=== PATIENT | female | born 1955 | race Caucasian/White ===

== ENCOUNTER 2017-03-08 10:59 | Inpatient (IN) | payer OTHER ==
--- NOTE | 2017-03-08 11:44 | Emergency Department Report ---
Chief Complaint: Weakness Stated Complaint: LOW BLOOD PRESSURE Time Seen by Provider: 03/08/17 11:41 - HPI History of Present Illness: PT Was at work this morning and she felt weak and dizzy. PT's son took her to PCP but sh was sent to ED for evaluation - ROS Review of Systems: + neck pain + generalized weakness + diarrhea yesterday - Exam Physical Exam: PT is alert not hypotensive abd is soft and non tender MSE screening note: Focused history and physical exam performed. Due to findings the following was ordered: ekg, labs ED Disposition for MSE Condition: Stable
[2017-03-08 12:50] LABS: Basophils % (Auto) 0.2 % (0.0-1.8); Eosinophils % (Auto) 0.3 % (0.0-4.3); Hematocrit 41.2 % (30.3-42.9); Hemoglobin 13.4 gm/dl (10.1-14.3); Mean Corpuscular HGB Conc 33 % (30-34); Mean Corpuscular Hemoglobin 30 pg (28-32); Mean Corpuscular Volume 93 fl (79-97); Platelet Count 188 K/mm3 (140-440); Red Blood Count 4.44 M/mm3 (3.65-5.03); Red Cell Distribution Width 12.7 % (13.2-15.2); White Blood Count 11.6 K/mm3 (4.5-11.0)
[2017-03-08 12:58] LABS: Alanine Aminotransferase 15 units/L (7-56); Albumin 4.1 g/dL (3.9-5); Albumin/Globulin Ratio 1.1 %; Alkaline Phosphatase 93 units/L (35-129); Anion Gap 21 mmol/L; BUN/Creatinine Ratio 24.28; Blood Urea Nitrogen 17 mg/dL (7-17); Calcium 10.1 mg/dL (8.4-10.2); Carbon Dioxide 26 mmol/L (22-30); Chloride 95.9 mmol/L (98-107); Glucose 417 mg/dL (65-100); Lipase 69 units/L (13-60); Potassium 4.6 mmol/L (3.6-5.0); Sodium 138 mmol/L (137-145)
--- NOTE | 2017-03-08 13:26 | Cat Scan Report ---
CT HEAD WITHOUT CONTRAST: HISTORY: Dizziness, generalized weakness.. Serial contiguous axial images were obtained through the cranium. Intravenous contrast material was not administered. The ventricles are normal in size and appearance. There is no mass effect or midline shift. No areas of abnormally increased or decreased attenuation are seen. No mass lesion is seen. The right frontal, right anterior ethmoid and visualized right maxillary sinus are opacified. The remaining sinuses and mastoid air cells are clear. IMPRESSION: Cranial CT scan within normal limits. Sinus disease as outlined above which appears mainly chronic. Correlate for acute on chronic sinusitis.
[2017-03-08 14:41] LABS: Bilirubin,Urine NEG (Negative); Blood,Urine NEG (Negative); Ketones,Urine TR mg/dL (Negative); Leukocyte Esterase,Urine MOD (Negative); Mucus,Urine FEW /HPF; Nitrite,Urine NEG (Negative); Urobilinogen,Urine < 2.0 mg/dL (<2.0)
[2017-03-08] MEDS ORDERED: NACL 0.9% 1000 ML 1,000 ML IV ONE (16:20)
[2017-03-08] MEDS ORDERED: ROCEPHIN 1,000 MG in NACL 0.9% 50 ML IV ONE (16:20)
[2017-03-08] MEDS ORDERED: ROCEPHIN/NS 1 GM/50 ML 1 GM/50 ML BAG IV SCH (17:00)
--- NOTE | 2017-03-08 19:01 | Emergency Department Report ---
- General Chief complaint: Weakness Stated complaint: LOW BLOOD PRESSURE Time Seen by Provider: 03/08/17 11:41 Source: patient Mode of arrival: Wheelchair Limitations: Language Barrier - History of Present Illness Initial comments: reports that while at work today experienced worsening generalized weakness. Reports she felt pre-syncopal. Reports that she was not feeling well approx 1 day ago Complaint: generalized weakness -: days(s) (approx 1 day) Location: generalized Severity: mild Severity scale (0 -10): 2 Consistency: intermittent Improves with: none Worsens with: none Associated Symptoms: other (reports some neck pain with movement). denies: chest pain, confusion, dark stools, diaphoresis, dysuria, easy bruising, fever/ chills, headaches, loss of appetite, nausea/vomiting, myalgias, rash, shortness of breath, syncope - Related Data Allergies Allergy/AdvReac Type Severity Reaction Status Date / Time No Known Allergies Allergy Unverified 03/08/17 11:48 ED Review of Systems ROS: Stated complaint: LOW BLOOD PRESSURE Other details as noted in HPI Constitutional: malaise, weakness. denies: chills, diaphoresis, fever Eyes: denies: eye pain, eye discharge, vision change Respiratory: denies: cough, orthopnea, shortness of breath, SOB with exertion, SOB at rest, stridor, wheezing Cardiovascular: denies: chest pain, palpitations, dyspnea on exertion, orthopnea , edema, syncope, paroxysmal nocturnal dyspnea Gastrointestinal: denies: abdominal pain, nausea, vomiting, diarrhea, constipation, hematemesis, melena, hematochezia Genitourinary: denies: urgency, dysuria, frequency Musculoskeletal: denies: back pain, joint swelling, arthralgia Skin: denies: rash, lesions Neurological: weakness. denies: headache, numbness, paresthesias, confusion, abnormal gait ED Past Medical Hx - Social History Smoking Status: Never Smoker Substance Use Type: None ED Physical Exam - General Limitations: Language Barrier General appearance: alert, in no apparent distress - Head Head exam: Present: atraumatic, normocephalic - Eye Eye exam: Present: PERRL, EOMI - ENT ENT exam: Present: normal orophraynx - Neck Neck exam: Present: normal inspection, full ROM. Absent: tenderness, meningismus - Respiratory Respiratory exam: Present: normal lung sounds bilaterally. Absent: respiratory distress, wheezes, rales, rhonchi, stridor, decreased breath sounds - Cardiovascular Cardiovascular Exam: Present: regular rate, normal rhythm, normal heart sounds. Absent: bradycardia, tachycardia, irregular rhythm, systolic murmur, diastolic murmur - GI/Abdominal GI/Abdominal exam: Present: soft, normal bowel sounds. Absent: distended, tenderness, rebound, rigid, diminished bowel sounds - Back Exam Back exam: Present: normal inspection, full ROM. Absent: tenderness, CVA tenderness (R), CVA tenderness (L), muscle spasm - Neurological Exam Neurological exam: Present: alert, oriented X3, CN II-XII intact, other (motor and sensory wnl. NIHSS 0). Absent: motor sensory deficit - Skin Skin exam: Present: warm, dry ED Course Vital Signs 03/08/17 03/08/17 03/08/17 11:42 16:22 17:40 Temperature 97.9 F Pulse Rate 97 H 90 Respiratory 18 18 18 Rate Blood Pressure 121/77 Blood Pressure 118/76 [Left] O2 Sat by Pulse 100 100 100 Oximetry ED Medical Decision Making - Lab Data Result diagrams: 03/08/17 12:14 03/08/17 12:14 - Radiology Data Radiology results: report reviewed - Medical Decision Making patient reports that she feel better. Offered patient inpatient stay for continued IV antibiotics and monitoring. Patient prefers admission over discharge home. Patient with SIRS criteria, and UTI. Advanced age plan admit for continued observation and recheck CBC in the morning. Critical care attestation.: If time is entered above; I have spent that time in minutes in the direct care of this critically ill patient, excluding procedure time. ED Disposition Clinical Impression: Hyperglycemia Sepsis Qualifiers: Sepsis type: sepsis due to unspecified organism Qualified Code(s): A41.9 - Sepsis, unspecified organism UTI (urinary tract infection) Qualifiers: Urinary tract infection type: site unspecified Hematuria presence: without hematuria Qualified Code(s): N39.0 - Urinary tract infection, site not specified Uncontrolled diabetes mellitus Qualifiers: Diabetes mellitus type: other specified (including BRYANT) Diabetes mellitus complication status: without complication Diabetes mellitus terminal operations manager insulin use: unspecified terminal operations manager insulin use status Qualified Code(s): E13.65 - Other specified diabetes mellitus with hyperglycemia Disposition: OP ADMIT IP TO THIS HOSP Is pt being admited?: Yes Condition: Stable Instructions: Diabetes Mellitus Type 2 in Adults (ED) Referrals: PRIMARY CARE, [Primary Care Provider] - 3-5 Days Time of Disposition: 19:01
[2017-03-09] MEDS ORDERED: MILK OF MAGNESIA PO PRN (02:02)
[2017-03-09] MEDS ORDERED: TYLENOL PO PRN (02:02)
[2017-03-09] MEDS ORDERED: PERCOCET 5/325 PO PRN (02:02)
[2017-03-09] MEDS ORDERED: DULCOLAX PR PRN (02:02)
[2017-03-09] MEDS ORDERED: ZOFRAN IV PRN (02:02)
--- NOTE | 2017-03-09 02:05 | History and Physical Report ---
History of Present Illness Date of examination: 03/09/17 History of present illness: 61-year-old woman with history of hypertension, diabetes comes to the emergency room with complaints of urinary frequency, dysuria and suprapubic tenderness. s Complain of generalized Weakness Review Of Systems: Constitutional: no weight loss Ears, eyes, nose, mouth and throat: no nasal congestion, no nasal discharge, no sinus pressure, blurry vision, diplopia Neck: No neck pain or rigidity. Cardiovascular: chest pain, orthopnea, palpitations Respiratory: No shortness of breath, cough Gastrointestinal: abdominal pain, hematochezia Genitourinary : no dysuria, frequency , hematuria Musculoskeletal: no muscle ache Integumentary: no rash, no pruritis Neurological: no parathesias, focal weakness Endocrine: no cold or heat intolerance, no polyuria or polydipsia Hematologic/Lymphatic: no easy bruising, no easy bleeding, no gland swelling Allergic/Immunologic: no urticaria, no angioedema. PAST MEDICAL HISTORY:hypertension, diabetes PAST SURGICAL HISTORY:None FAMILY HISTORY:hypertension SOCIAL HISTORY: Denies alcohol, tobacco, drugs Medications and Allergies Allergies Allergy/AdvReac Type Severity Reaction Status Date / Time No Known Allergies Allergy Unverified 03/08/17 11:48 Home Medications Medication Instructions Recorded Confirmed Last Taken Type Unobtainable 03/08/17 03/08/17 Unknown History Active Meds: Active Medications Ceftriaxone Sodium (Rocephin/Ns 1 Gm/50 Ml) 1 gm in 50 mls @ 100 mls/hr IV ONCE ALESSANDRO Last Admin: 03/08/17 17:02 Dose: 100 mls/hr Exam - Physical Exam Narrative exam: Gen. appearance: Patient lying in bed in no acute distress HEENT: Normocephalic/atraumatic, pupils equal round reactive to light, extra alkaline movement intact, no scleral icterus, no JVD or thyromegaly or nodule, neck is supple, mucous membrane moist, no erythema or exudate Heart: S1-S2, regular rate and rhythm Lungs: Clear to auscultation bilateral breathing comfortable Abdomen: Positive bowel sounds, nontender, nondistended, no organomegaly Extremities: No edema, cyanosis, clubbing Neuro:: Oriented 3 , cranial nerves II-12 intact, speech, motor intact Skin: No rash, nodules, warm dry - Constitutional Vitals: Temp Pulse Resp BP Pulse Ox 98.4 F 89 16 145/85 100 03/08/17 20:07 03/09/17 01:19 03/09/17 01:19 03/09/17 01:19 03/09/17 01:19 Results - Labs CBC & Chem 7: 03/08/17 12:14 03/08/17 12:14 Labs: Abnormal lab results 03/08/17 03/08/17 03/08/17 Range/Units 12:14 12:14 14:15 WBC 11.6 H (4.5-11.0) K/mm3 RDW 12.7 L (13.2-15.2) % Lymph % (Auto) 13.3 L (13.4-35.0) % Seg Neutrophils % 82.3 H (40.0-70.0) % Seg Neutrophils # 9.5 H (1.8-7.7) K/mm3 Chloride 95.9 L (98-107) mmol/L Glucose 417 H (65-100) mg/dL POC Glucose (70-105) Lipase 69 H (13-60) units/L Urine WBC (Auto) 116.0 H (0.0-6.0) /HPF 03/08/17 Range/Units 18:52 WBC (4.5-11.0) K/mm3 RDW (13.2-15.2) % Lymph % (Auto) (13.4-35.0) % Seg Neutrophils % (40.0-70.0) % Seg Neutrophils # (1.8-7.7) K/mm3 Chloride (98-107) mmol/L Glucose (65-100) mg/dL POC Glucose 205 H (70-105) Lipase (13-60) units/L Urine WBC (Auto) (0.0-6.0) /HPF - Imaging and Cardiology Chest x-ray: image reviewed CT Scan - head: report reviewed Assessment and Plan Assessment Pyelonephritis Hypertension Diabetes type 2 Plan Admit to medicine Start IV Rocephin, follow cultures Check fingersticks and initiate insulin sliding scale Continue appropriate outpatient medications Dvt prophylaxis
--- NOTE | 2017-03-09 07:59 | XRay Report ---
ROUTINE CHEST, TWO VIEWS: HISTORY: Weakness. The trachea, heart, mediastinal contour, lung villatoro and bony thorax are unremarkable. IMPRESSION: Unremarkable chest x-ray.
--- NOTE | 2017-03-09 08:15 | Admit Criteria Form ---
Admission Criteria Documentation: SEPSIS and OTHER FEBRILE ILLNESS, W/O FOCAL INFECTION Clinical Indications for Admission to Inpatient Care ( Place 'X' for any and all applicable criteria): Admission to inpatient status for two midnights or more is indicated for ANY ONE of the following (1)(2)(3): [ ] I. Bacteremia [ ]II. Suspected or identified specific infection requiring hospitalization (eg, meningitis, endocarditis) [ ]III. Hemodynamic instability [ ]IV. Temperature > 104.9 0F (40.5 0C) (oral) [ ]V. Core (rectal) temperature < 95 0F (35 0C) (eg, thought to be due to infection) [ ]. Altered mental status that is severe or persistent [ ]VII. Failure or unavailability of outpatient antimicrobial treatment [ ]VIII. Hypoxemia [ ]IX. Seizures [ ]X. New coagulopathy (eg, reduced platelet count consistent with disseminated intravascular coagulation) [X ]XI. Inpatient admission required [B] rather than observation care because of 1 or more of the following 1) Tachypnea not responsive to outpatient or observation treatment [X] 2) Metabolic disorder (eg, hypoglycemia, hyperglycemia, metabolic acidosis) that persists despite outpatient and observation care treatment 3) Evidence of end-organ dysfunction (eg, rising creatinine, myocardial ischemia, rising liver function tests) that is severe or persists despite observation care treatment 4) Temperature > 103.1 0F (39.5 0C) (oral) that is not responsive to observation care treatment 5) Dehydration that is severe or persistent [X] 6) Parenteral antimicrobial regimen that must be implemented on inpatient basis (eg, infusion or monitoring needs beyond capabilities of outpatient parenteral therapy) 7) Strict or protective (eg, laminar flow) isolation 8) Other condition, treatment or monitoring requiring inpatient admission Extended stay beyond goal length of stay may be needed for(1)(3) [ ]a) Persistent Hypotension [ ]b) Positive blood cultures [ ]c) Lack of improvement on antimicrobial treatment (eg, continued fever) [ ]d) Active comorbid illness (eg, heart failure, renal failure) [ ]e) High-risk febrile neutropenia [ ]f) Insufficient oral intake [ ]g) insufficient oral intake The original [employer] content created by [employer] has been revised. The portions of the content which have been revised are identified through the use of italic text or in bold, and [facility] has neither reviewed nor approved the modified material. All other unmodified content is copyright [facility]. Please see references footnoted in the original [facility] edition 2017 Admission Criteria Met: Yes
[2017-03-09] MEDS ORDERED: D50W (25GM) Syringe IV PRN (08:37)
[2017-03-09] MEDS: NOVOLOG SUB-Q SCH ×4 (08:47→22:17)
[2017-03-09] MEDS: ROCEPHIN/NS 1 GM/50 ML 1 GM/50 ML BAG IV SCH (10:59)
[2017-03-09] MEDS: LOVENOX SUB-Q SCH (10:59)
--- NOTE | 2017-03-09 15:22 | Event Note ---
Date: 03/09/17 Patient seen and examined, in no acute distress. will continue to monitor. await culture results. family and patient updated about findings and treatment plan.
[2017-03-10 05:58] LABS: Basophils % (Auto) 0.2 % (0.0-1.8); Hematocrit 36.8 % (30.3-42.9); Hemoglobin 12.7 gm/dl (10.1-14.3); Mean Corpuscular HGB Conc 35 % (30-34); Mean Corpuscular Hemoglobin 32 pg (28-32); Mean Corpuscular Volume 92 fl (79-97); Platelet Count 152 K/mm3 (140-440); Red Cell Distribution Width 12.8 % (13.2-15.2); White Blood Count 7.7 K/mm3 (4.5-11.0)
[2017-03-10 06:19] LABS: Anion Gap 16 mmol/L; Blood Urea Nitrogen 18 mg/dL (7-17); Calcium 8.5 mg/dL (8.4-10.2); Carbon Dioxide 26 mmol/L (22-30); Chloride 103.1 mmol/L (98-107); Glucose 218 mg/dL (65-100); Potassium 3.8 mmol/L (3.6-5.0); Sodium 141 mmol/L (137-145)
[2017-03-10] MEDS: NOVOLOG SUB-Q SCH ×2 (08:45→12:22)
[2017-03-10] MEDS: LOVENOX SUB-Q SCH (09:38)
[2017-03-10] MEDS: ROCEPHIN/NS 1 GM/50 ML 1 GM/50 ML BAG IV SCH (09:38)
--- NOTE | 2017-03-10 10:33 | Discharge Summary ---
Providers - Providers Date of Admission: 03/09/17 02:02 Attending physician: MAGDY LEE MD Primary care physician: CORPOR[facility]OT Hospitalization Reason for admission: UTI Condition: Stable Hospital course: 61-year-old woman with history of hypertension, diabetes comes to the emergency room with complaints of urinary frequency, dysuria and suprapubic tenderness. Patient complained of generalized Weakness. She'll start on IV fluids by the antibiotics with good improvement. Urine cultures were unfortunately not obtained patient was afebrile 24-48 hours. Abdominal suprapubic pain resolved. She is clinically stable at this time for discharge and to complete antibiotics outpatient. Discharge diagnosis Acute pyelonephritis Diabetes mellitus Hypertension Disposition: TO HOME OR SELFCARE Time spent for discharge: 35 mins Core Measure Documentation - Palliative Care Palliative Care/ Comfort Measures: Not Applicable - Core Measures Any of the following diagnoses?: none - VTE Discharge Requirements Deep Vein Thrombosis/Pulmonary Embolism Present on Admission: No Exam - Physical Exam Narrative exam: VITAL SIGNS: Reviewed. GENERAL: The patient appeared well nourished and normally developed. Vital signs as documented. HEAD: No signs of head trauma. EYES: Pupils are equal. Extraocular motions intact. EARS: Hearing grossly intact. MOUTH: Oropharynx is normal. NECK: No adenopathy, no JVD. CHEST: Chest with clear breath sounds bilaterally. No wheezes, rales, or rhonchi. CARDIAC: Regular rate and rhythm. S1 and S2, without murmurs, gallops, or rubs. VASCULAR: No Edema. Peripheral pulses normal and equal in all extremities. ABDOMEN: Soft, without detectable tenderness. No sign of distention. No rebound or guarding, and no masses palpated. Bowel Sounds normal. MUSCULOSKELETAL: Good range of motion of all major joints. Extremities without clubbing, cyanosis or edema. NEUROLOGIC EXAM: Alert and oriented x 3. No focal sensory or strength deficits. Speech normal. Follows commands. PSYCHIATRIC: Mood normal. SKIN: No rash or lesions. - Constitutional Vitals: Temp Pulse Resp BP Pulse Ox 99.0 F 104 H 18 148/87 97 03/09/17 20:32 03/09/17 20:32 03/09/17 20:32 03/09/17 20:32 03/10/17 09:13 Plan Activity: advance as tolerated, fall precautions Diet: diabetic Special Instructions: record daily BP diary, record blood sugar diary Follow up with: PRIMARY CARE, [Primary Care Provider] - 3-5 Days Prescriptions: Ciprofloxacin HCl [Ciprofloxacin TAB] 500 mg PO Q12H #10 tab traMADol [Ultram] 50 mg PO Q6HR PRN #14 tablet PRN Reason: Pain
[2017-03-10 12:19] VITALS: BP 128/79
[2017-03-10] MEDS ORDERED: Fluarix Quad 2017-2018(36 MOS+) IM ONE (13:30)
[2017-03-10] MEDS ORDERED: PNEUMOVAX 23 IM ONE (13:30)
== END 2017-03-10 14:30 | disposition home or self-care (01) | DRG 690 ==
LOC: ED 10:59 → 3A 03-09 02:02 → CC2 03-09 08:23
PROVIDERS: ADMIT Internal Medicine; ATTEND Internal Medicine
PROC: 3E0234Z Introduction of Serum, Toxoid and Vaccine into Muscle, Percutaneous Approach (ICD-10-PCS; principal; 2017-03-09)
DX: N10 Acute pyelonephritis (principal); N39.0 Urinary tract infection, site not specified; E13.65 Other specified diabetes mellitus with hyperglycemia; Z82.49 Family history of ischemic heart disease and other diseases of the circulatory system; Z23 Encounter for immunization
CPT/HCPCS: 36415; 70450; 71020; 80048; 80053; 81001; 82140; 82962; 83690; 83880; 84484; 85025; 85379; 87040; 87086; 90686; 90732; 93005; 93010; 96365; 96375; J0696; J1650; J1815; J7030

== ENCOUNTER 2017-11-11 18:35 | Emergency (ER) | payer OTHER ==
[2017-11-11 20:58] VITALS: BP 146/84
--- NOTE | 2017-11-11 21:22 | XRay Report ---
FINAL REPORT PROCEDURE: XR ANKLE 3+V LT TECHNIQUE: LEFT ankle radiographs, AP and lateral views. HISTORY: ankle sprain COMPARISON: No prior studies are available for comparison. FINDINGS: Fracture (s) and/or Dislocation(s): There is a nondisplaced fracture of the distal fibula. The tibia is intact. There is a fracture of the base of the 5th metatarsal bone. Alignment: Normal. Joint space(s): There is mild degenerative arthrosis of the tibiotalar joint. Soft tissues: There is lateral soft tissue swelling. Bone mineralization: Normal. Foreign bodies: Normal. Calcaneal spurring: There is a small inferior calcaneal spur. IMPRESSION: There are fractures of the distal fibula and the base of the 5th metatarsal bone..
--- NOTE | 2017-11-11 22:31 | Emergency Department Report ---
ED Lower Extremity HPI - General Chief Complaint: Extremity Injury, Lower Stated Complaint: FOOT PAIN/SWELLING Time Seen by Provider: 11/11/17 22:20 Source: patient Mode of arrival: Ambulatory Limitations: No Limitations - History of Present Illness Initial Comments: 62-year-old female presents to the emergency room for left ankle sprain for 4 days. Patient reports that on Mother's Day she was dancing and her foot rolled. She reports that it rolled twice and felt that maybe she has sprained her left ankle. Patient reports that the swelling had increase with minimal pain. Patient reports no past medical history currently takes no medications on a daily basis and has no known drug allergies. Patient is here with her son. Complaint: ankle injury -: days(s) (4) Injury: Ankle: Left Type of Injury: eversion Place: home Severity: moderate Severity scale (0 -10): 5 Improves With: nothing Worsens With: weight bearing Context: other (dancing) Associated Symptoms: swelling, tingling Treatments Prior to Arrival: cold therapy - Related Data Home Medications Medication Instructions Recorded Confirmed Last Taken amLODIPine [Norvasc] 5 PO DAILY 03/09/17 03/07/17 09:00 metFORMIN [Glucophage] 500 mg PO BID 03/09/17 03/09/17 02/28/17 17:00 Previous Rx's Medication Instructions Recorded Last Taken Type Ciprofloxacin HCl [Ciprofloxacin 500 mg PO Q12H #10 tab 03/10/17 Unknown Rx TAB] traMADol [Ultram] 50 mg PO Q6HR PRN #14 tablet 03/10/17 Unknown Rx HYDROcodone/APAP 5-325 [[place] 1 each PO Q6HR #12 tablet 11/11/17 Unknown Rx 5-325 mg TAB] Allergies Allergy/AdvReac Type Severity Reaction Status Date / Time No Known Allergies Allergy Verified 11/11/17 20:53 ED Review of Systems ROS: Stated complaint: FOOT PAIN/SWELLING Other details as noted in HPI Comment: All other systems reviewed and negative Constitutional: denies: chills, fever Eyes: denies: eye pain, eye discharge, vision change Musculoskeletal: joint swelling (left ankle), arthralgia (left ankle) Skin: denies: rash, lesions Neurological: denies: headache, weakness, paresthesias Psychiatric: denies: anxiety, depression Hematological/Lymphatic: denies: easy bleeding, easy bruising ED Past Medical Hx - Past Medical History Hx Hypertension: Yes Hx Heart Attack/AMI: No Hx Congestive Heart Failure: No Hx Diabetes: Yes Hx Asthma: No Hx COPD: No Hx HIV: No - Surgical History Hx Pacemaker: No Hx Internal Defibrillator: No Additional Surgical History: Mass removed from under right arm. C- Section - Social History Smoking Status: Never Smoker Substance Use Type: None - Medications Home Medications: Home Medications Medication Instructions Recorded Confirmed Last Taken Type amLODIPine [Norvasc] 5 PO DAILY 03/09/17 03/07/17 09:00 History metFORMIN [Glucophage] 500 mg PO BID 03/09/17 03/09/17 02/28/17 17:00 History Ciprofloxacin HCl [Ciprofloxacin 500 mg PO Q12H #10 tab 03/10/17 Unknown Rx TAB] traMADol [Ultram] 50 mg PO Q6HR PRN #14 tablet 03/10/17 Unknown Rx HYDROcodone/APAP 5-325 [[place] 1 each PO Q6HR #12 tablet 11/11/17 Unknown Rx 5-325 mg TAB] ED Physical Exam - General Limitations: No Limitations General appearance: alert, in no apparent distress - Head Head exam: Present: atraumatic, normocephalic - Cardiovascular Cardiovascular Exam: Present: regular rate, normal rhythm. Absent: systolic murmur, diastolic murmur, rubs, gallop - GI/Abdominal GI/Abdominal exam: Present: soft, normal bowel sounds - Expanded Lower Extremity Exam Left Ankle exam: Present: tenderness, swelling, ecchymosis. Absent: full ROM, deformity Foot/Toe exam: Present: tenderness, swelling, ecchymosis. Absent: full ROM Neuro vascular tendon exam: Present: no vascular compromise - Neurological Exam Neurological exam: Present: alert, oriented X3 - Psychiatric Psychiatric exam: Present: normal affect, normal mood - Skin Skin exam: Present: warm, dry, intact, normal color. Absent: rash ED Course Vital Signs 11/11/17 20:53 Temperature 99.4 F Pulse Rate 106 H Respiratory 16 Rate Blood Pressure 146/84 O2 Sat by Pulse 99 Oximetry ED Lower Extremity MDM - Radiology Data Radiology results: report reviewed, image reviewed FINDINGS: Fracture (s) and/or Dislocation(s): There is a nondisplaced fracture of the distal fibula. The tibia is intact. There is a fracture of the base of the 5th metatarsal bone. Alignment: Normal. Joint space(s): There is mild degenerative arthrosis of the tibiotalar joint. Soft tissues: There is lateral soft tissue swelling. Bone mineralization: Normal. Foreign bodies: Normal. Calcaneal spurring: There is a small inferior calcaneal spur. IMPRESSION: There are fractures of the distal fibula and the base of the 5th metatarsal bone.. Transcribed By: CO Dictated By: KELL MOORE MD Electronically Authenticated By: KELL MOORE MD Signed Date/Time: 11/11/172115 DD/ 15 TD/TT: 11/11/172115 - Medical Decision Making Patient has been evaluated but this provider fast track. X-rays of ankle and foot shows the patient has a fracture of the left metatarsal and the distal fibula. Discussed the patient and I will place her in a boot since patient has so much swelling. I discussed the patient she needs to elevate her foot above her heart do not walk on it. She needs to continue with ice. I would give her pain medication of [place] 5/325. It is very important for patient to follow up with orthopedist I will list several below. Patient and son verbalized understanding. Critical care attestation.: If time is entered above; I have spent that time in minutes in the direct care of this critically ill patient, excluding procedure time. ED Disposition Clinical Impression: Fracture of fifth metatarsal bone of left foot Qualifiers: Encounter type: initial encounter Fracture type: closed Fracture alignment: nondisplaced Qualified Code(s): S92.355A - Nondisplaced fracture of fifth metatarsal bone, left foot, initial encounter for closed fracture Closed fracture of left distal fibula Qualifiers: Encounter type: initial encounter Fracture morphology: unspecified fracture morphology Qualified Code(s): S82.832A - Other fracture of upper and lower end of left fibula, initial encounter for closed fracture Disposition: -01 TO HOME OR SELFCARE Is pt being admited?: No Does the pt Need Aspirin: No Condition: Stable Instructions: Foot Fracture in Adults (ED), Ankle Fracture (ED) Additional Instructions: Please elevate her foot and place ice. Your foot needs to be elevated above your heart. Please wear your boot and use her walker please minimize her walking. Please take your medication as prescribed do not operate heavy machinery while taking the [place]. Please follow up with orthopedics on Tuesday or Tuesday for further evaluation and treatment. Prescriptions: HYDROcodone/APAP 5-325 [[place] 5-325 mg TAB] 1 each PO Q6HR #12 tablet Referrals: PRIMARY CARE, [Primary Care Provider] - 3-5 Days FRANK WILSON MD [Staff Physician] - 3-5 Days LUDY SUBRAMANIAN MD [Staff Physician] - 3-5 Days FRANCISCO AN MD [Staff Physician] - 3-5 Days Forms: Accompanied Note, Work/School Release Form(ED)
[2017-11-11] MEDS ORDERED: NORCO 5/325 PO ONE (22:45)
== END 2017-11-11 23:13 | disposition home or self-care (01) ==
LOC: ED 18:35
DX: S92.355A Nondisplaced fracture of fifth metatarsal bone, left foot, initial encounter for closed fracture (principal); I10 Essential (primary) hypertension; E11.9 Type 2 diabetes mellitus without complications; Z79.899 Other long term (current) drug therapy; X50.1XXA Overexertion from prolonged static or awkward postures, initial encounter; Y93.41 Activity, dancing; Y99.8 Other external cause status; Y92.009 Unspecified place in unspecified non-institutional (private) residence as the place of occurrence of the external cause

== ENCOUNTER 2019-02-08 15:09 | Inpatient (IN) | payer OTHER ==
[2019-02-08 16:36] LABS: Basophils % (Auto) 0.3 % (0.0-1.8); Eosinophils % (Auto) 0.1 % (0.0-4.3); Hematocrit 25.8 % (30.3-42.9); Hemoglobin 8.5 gm/dl (10.1-14.3); Lymphocytes # (Auto) 1.2 K/mm3 (1.2-5.4); Lymphocytes % (Auto) 9.3 % (13.4-35.0); Mean Corpuscular HGB Conc 33 % (30-34); Mean Corpuscular Volume 93 fl (79-97); Monocytes # (Auto) 1.1 K/mm3 (0.0-0.8); Monocytes % (Auto) 8.6 % (0.0-7.3); Platelet Count 169 K/mm3 (140-440); Red Blood Count 2.77 M/mm3 (3.65-5.03); Red Cell Distribution Width 15.2 % (13.2-15.2)
[2019-02-08 17:01] LABS: Albumin 3.2 g/dL (3.9-5); Calcium 8.6 mg/dL (8.4-10.2)
[2019-02-08] MEDS ORDERED: NACL 0.9% 1000 ML IV ONE (17:09)
[2019-02-08] MEDS ORDERED: ZOSYN/NS 4.5GM/100ML 4.5 GM/100 ML VIAL IV ONE (17:11)
--- NOTE | 2019-02-08 17:29 | Cat Scan Report ---
CT BRAIN: 02/08/2019 INDICATION / CLINICAL INFORMATION: . Weakness. Dizziness. COMPARISON: 03/08/2017 FINDINGS: BRAIN/INTRACRANIAL STRUCTURES: Unenhanced CT images of the brain demonstrate no evidence of acute int racranial abnormality. Ventricles and sulci are normal in size and shape. There is no evidence of acute ischemic injury, hemorrhage, or mass. An old appearing left basal ganglia lacunar infarct is noted. This was not present at the time the pr ior exam,. Air-fluid levels are present in the maxillary sinuses bilaterally. The prior exam demonstrated right- sided sinus opacification only. There is prominent mucosal thickening also now present in the right f rontal sinus, similar to the prior exam. EXTRACRANIAL STRUCTURES: Unremarkable. IMPRESSION: No acute intracranial abnormality. Paranasal sinus disease, including bilateral maxillary sinus air-fluid levels. All CT scans at this location are performed using dose reduction to ALARA by means of automated expos ure control. Signer Name: Jose Parkinson MD Signed: 02/08/2019 5:24 PM Workstation Name: [id number]
[2019-02-08 17:40] LABS: Partial Thromboplastin Time 30.1 Sec. (24.2-36.6)
--- NOTE | 2019-02-08 20:47 | Nuclear Medicine Report ---
Nuclear medicine pulmonary VQ scan INDICATION: Acute onset chest pain with dyspnea TECHNIQUE: A total of 4.33 mCi technetium 99 MAA was injected IV per protocol at 15.19 mCi xenon-133 was inhaled per protocol FINDINGS: Normal wash-in and washout of xenon radiotracer. No mismatch perfusion defect identified IMPRESSION: Low probability for PTE. Signer Name: Jean-Pierre Perez MD Signed: 02/08/2019 8:43 PM Workstation Name: [id number]
--- NOTE | 2019-02-08 21:27 | Emergency Department Report ---
ED Dizziness HPI - General Chief Complaint: Dizziness Stated Complaint: WEAKNESS/LOW BP Time Seen by Provider: 02/08/19 16:36 Source: EMS Mode of arrival: Stretcher Limitations: Language Barrier - History of Present Illness Initial Comments: 63 y.o female presents to ER with dizziness, generalized weakness, chest pain and sob. Patient had left foot wound surgery one week ago at [facility]. Upon presentation to ER she was found to be hypoxic and was placed on a non rebreather which improved her o2. She described her chest pain as pressure, mid chest, without radiation. Her sob, is mostly non exertional. no fever, chills or night sweats. MD Complaint: dizziness -: Gradual Timing: gradual onset Description: sense of movement History of Same: No History of Trauma: No Severity: severe Improves With: nothing Worsens With: movement Associated Symptoms: denies other symptoms - Related Data Home Medications Medication Instructions Recorded Confirmed Last Taken amLODIPine [Norvasc] 5 mg PO DAILY 03/09/17 02/08/19 02/08/19 metFORMIN [Glucophage] 500 mg PO BID 03/09/17 02/08/19 02/08/19 Allergies Allergy/AdvReac Type Severity Reaction Status Date / Time No Known Allergies Allergy Verified 11/11/17 20:53 ED Review of Systems ROS: Stated complaint: WEAKNESS/LOW BP Other details as noted in HPI Comment: All other systems reviewed and negative Eyes: denies: eye pain ENT: denies: ear pain Respiratory: SOB with exertion, SOB at rest. denies: cough Cardiovascular: chest pain, palpitations, dyspnea on exertion Endocrine: denies: flushing Gastrointestinal: denies: abdominal pain, nausea, vomiting Genitourinary: denies: urgency Skin: denies: rash Neurological: weakness, numbness ED Past Medical Hx - Past Medical History Hx Hypertension: Yes Hx Heart Attack/AMI: No Hx Congestive Heart Failure: No Hx Diabetes: Yes Hx Asthma: No Hx COPD: No Hx HIV: No - Surgical History Hx Pacemaker: No Hx Internal Defibrillator: No Additional Surgical History: Mass removed from under right arm. C- Section - Social History Smoking Status: Never Smoker - Medications Home Medications: Home Medications Medication Instructions Recorded Confirmed Last Taken Type amLODIPine [Norvasc] 5 mg PO DAILY 03/09/17 02/08/19 02/08/19 History metFORMIN [Glucophage] 500 mg PO BID 03/09/17 02/08/19 02/08/19 History ED Physical Exam - General Limitations: Language Barrier General appearance: alert, in no apparent distress - Head Head exam: Present: atraumatic, normocephalic - Eye Eye exam: Present: normal appearance, PERRL, EOMI Pupils: Present: normal accommodation - ENT ENT exam: Present: normal exam, normal orophraynx - Neck Neck exam: Present: normal inspection - Respiratory Respiratory exam: Present: normal lung sounds bilaterally - Cardiovascular Cardiovascular Exam: Present: regular rate - GI/Abdominal GI/Abdominal exam: Present: soft, normal bowel sounds ED Course Vital Signs 02/08/19 02/08/19 02/08/19 15:51 15:53 16:00 Temperature 98.4 F Pulse Rate 80 81 81 Respiratory 20 15 16 Rate Blood Pressure 85/44 83/42 Blood Pressure 74/46 [Left] O2 Sat by Pulse 74 L 100 Oximetry 02/08/19 02/08/19 02/08/19 16:15 16:30 16:57 Temperature Pulse Rate 82 82 Respiratory 19 15 Rate Blood Pressure 81/47 85/53 85/53 Blood Pressure [Left] O2 Sat by Pulse 99 100 Oximetry 02/08/19 02/08/19 02/08/19 17:00 17:06 17:15 Temperature 98.4 F Pulse Rate 74 Respiratory 20 Rate Blood Pressure 91/55 91/56 101/53 Blood Pressure [Left] O2 Sat by Pulse 96 96 99 Oximetry 02/08/19 02/08/19 02/08/19 17:30 17:45 18:00 Temperature Pulse Rate 81 Respiratory 18 Rate Blood Pressure 109/50 109/50 96/61 Blood Pressure [Left] O2 Sat by Pulse 100 100 98 Oximetry 02/08/19 02/08/19 02/08/19 18:15 18:30 18:45 Temperature Pulse Rate 81 80 80 Respiratory 14 21 22 Rate Blood Pressure 96/61 97/48 93/44 Blood Pressure [Left] O2 Sat by Pulse 98 96 100 Oximetry 02/08/19 02/08/19 02/08/19 19:00 19:09 19:15 Temperature 98.3 F Pulse Rate 80 83 Respiratory 18 20 21 Rate Blood Pressure 96/50 Blood Pressure 93/48 [Left] O2 Sat by Pulse 100 100 100 Oximetry 02/08/19 02/08/19 02/08/19 19:31 20:00 20:59 Temperature Pulse Rate 80 83 84 Respiratory 18 24 19 Rate Blood Pressure 93/48 103/47 96/49 Blood Pressure [Left] O2 Sat by Pulse 98 95 94 Oximetry 02/08/19 02/08/19 21:00 22:00 Temperature Pulse Rate 83 85 Respiratory 17 24 Rate Blood Pressure 98/46 95/33 Blood Pressure [Left] O2 Sat by Pulse 94 94 Oximetry ED Medical Decision Making - Lab Data Result diagrams: 02/08/19 16:26 02/08/19 16:26 - EKG Data -: EKG Interpreted by Me EKG shows normal: sinus rhythm Rate: normal - EKG Data When compared to previous EKG there are: no significant change Interpretation: no acute changes, nonspecific ST-T wave aggie - Radiology Data Radiology results: report reviewed Critical care attestation.: If time is entered above; I have spent that time in minutes in the direct care of this critically ill patient, excluding procedure time. ED Disposition Clinical Impression: PUSHPA (acute kidney injury), Hypoxia CHF exacerbation Qualifiers: Heart failure type: systolic Qualified Code(s): I50.23 - Acute on chronic sy stolic (congestive) heart failure Disposition: OP ADMIT IP TO THIS HOSP Is pt being admited?: Yes Does the pt Need Aspirin: Yes Condition: Stable Referrals: DEBORA YI MD [Primary Care Provider] - 3-5 Days
[2019-02-08] MEDS: ASPIRIN PO SCH (22:07)
--- NOTE | 2019-02-08 22:13 | XRay Report ---
CHEST 1 VIEW INDICATION / CLINICAL INFORMATION: hypoxia. COMPARISON: None available. FINDINGS: SUPPORT DEVICES: None. HEART / MEDIASTINUM: No significant abnormality. LUNGS / PLEURA: Bilateral interstitial edema and pleural effusions. Signer Name: Jean-Pierre Perez MD Signed: 02/08/2019 10:09 PM Workstation Name: [id number]
[2019-02-08] MEDS ORDERED: D50W (25GM) Syringe IV PRN (22:15)
[2019-02-08] MEDS ORDERED: SODIUM CHLORIDE FLUSH SYRINGE 10 ML IV PRN (22:15)
[2019-02-08] MEDS ORDERED: ZOFRAN IV PRN (22:15)
[2019-02-08] MEDS ORDERED: PROVENTIL IH PRN (22:15)
--- NOTE | 2019-02-08 22:33 | History and Physical Report ---
History of Present Illness Date of examination: 02/08/19 Date of admission: 02/12/2019 Chief complaint: generalized weakness History of present illness: 63 -year-old female with history of hypertension and diabetes, Diabetic foot ulcer status post debridement of left second toe d/t (one week ago at [facility]) who presents to [facility] ED with complaints of generalized weakness, dizziness, chest pain and sob. Pt only speaks ukrainian. Her son is present at the bedside. She has requested that he interprets, and assist with providing history. Pt states that she woke up feeling shortness of breath "weak" and not her "normal self". As the day progressed her SOB , so she decided to come in for further evaluation. Pt denies cardiac history or ever having cardiac work up. Past History Past Medical History: diabetes, hypertension Past Surgical History: Other (Mass removed from under right arm. C- Section, left toe surgery) Social history: , lives with family. denies: smoking, alcohol abuse Family history: no significant family history Medications and Allergies Allergies Allergy/AdvReac Type Severity Reaction Status Date / Time No Known Allergies Allergy Verified 11/11/17 20:53 Home Medications Medication Instructions Recorded Confirmed Last Taken Type amLODIPine [Norvasc] 5 mg PO DAILY 03/09/17 02/08/19 02/08/19 History metFORMIN [Glucophage] 500 mg PO BID 03/09/17 02/08/19 02/08/19 History Active Meds: Active Medications Acetaminophen (Tylenol) 650 mg PO Q4H PRN PRN Reason: Pain MILD(1-3)/Fever >100.5/WHITEHEAD Albuterol (Proventil) 2.5 mg IH Q3HRT PRN PRN Reason: Shortness Of Breath Amlodipine Besylate (Norvasc) 5 mg PO DAILY [facility] Aspirin (Aspirin) 325 mg PO QDAY [facility] Last Admin: 02/08/19 22:07 Dose: 325 mg Documented by: Dextrose (D50w (25gm) Syringe) 50 ml IV PRN PRN PRN Reason: Hypoglycemia Docusate Sodium (Colace) 100 mg PO BID [facility] Furosemide (Lasix) 40 mg IV QDAY [facility] Heparin Sodium (Porcine) (Heparin) 5,000 unit SUB-Q Q12HR [facility] Insulin Human Lispro (Humalog) 0 unit SUB-Q [facility]; Protocol Metformin HCl (Glucophage) 500 mg PO BID [facility] Ondansetron HCl (Zofran) 4 mg IV Q6H PRN PRN Reason: Nausea And Vomiting Sodium Chloride (Sodium Chloride Flush Syringe 10 Ml) 10 ml IV BID [facility] Sodium Chloride (Sodium Chloride Flush Syringe 10 Ml) 10 ml IV PRN PRN PRN Reason: LINE FLUSH Review of Systems All systems: negative Constitutional: fatigue, weakness Cardiovascular: lightheadedness, shortness of breath, dyspnea on exertion, no paroxysmal nocturnal dyspnea Respiratory: no cough, no cough with sputum Exam - Physical Exam Narrative exam: Physical exam General appearance: Present: No acute distress, alert and oriented x3, pleasant, well-developed, speaking adult female - EENT Eyes: Present: PERRL, EOM intact ENT: hearing intact, normal dentition - Neck Neck: Present: supple, normal ROM - Respiratory Respiratory effort: Non-labored, on supplemental O2 Respiratory: faint bibasilar crackles - Cardiovascular Heart rate: 80 (bpm) Rhythm: regular Heart Sounds: Present: S1 & S2. Absent: rub, click - Extremities Extremities: no ischemia, pulses intact, abnormal (bilateral pitting edema R>L) - Peripheral Assessment Peripheral Pulses: within normal limits - Abdominal General gastrointestinal: soft, non-tender, normal bowel sounds - Integumentary Integumentary: Present: warm, dry, left foot dressed in gauze and tape in foot boot - Musculoskeletal Musculoskeletal: generalized weakness, able to move all extremities -Neurological Neurological: CN II-XII grossly intact - Psychiatric Psychiatric: cooperative - Constitutional Vitals: Temp Pulse Resp BP Pulse Ox 98.3 F 85 24 95/33 94 02/08/19 19:15 02/08/19 22:00 02/08/19 22:00 02/08/19 22:00 02/08/19 22:00 Results - Labs CBC & Chem 7: 02/08/19 16:26 02/08/19 16:26 Labs: Laboratory Last Values WBC 12.6 K/mm3 (4.5-11.0) H 02/08/19 16:26 RBC 2.77 M/mm3 (3.65-5.03) L 02/08/19 16:26 Hgb 8.5 gm/dl (10.1-14.3) L 02/08/19 16:26 Hct 25.8 % (30.3-42.9) L 02/08/19 16:26 MCV 93 fl (79-97) 02/08/19 16:26 MCH 31 pg (28-32) 02/08/19 16:26 MCHC 33 % (30-34) 02/08/19 16:26 RDW 15.2 % (13.2-15.2) 02/08/19 16:26 Plt Count 169 K/mm3 (140-440) 02/08/19 16:26 Lymph % (Auto) 9.3 % (13.4-35.0) L 02/08/19 16:26 Pender % (Auto) 8.6 % (0.0-7.3) H 02/08/19 16:26 Eos % (Auto) 0.1 % (0.0-4.3) 02/08/19 16:26 Baso % (Auto) 0.3 % (0.0-1.8) 02/08/19 16:26 Lymph # 1.2 K/mm3 (1.2-5.4) 02/08/19 16:26 Pender # 1.1 K/mm3 (0.0-0.8) H 02/08/19 16:26 Eos # 0.0 K/mm3 (0.0-0.4) 02/08/19 16:26 Baso # 0.0 K/mm3 (0.0-0.1) 02/08/19 16:26 Seg Neutrophils % 81.7 % (40.0-70.0) H 02/08/19 16:26 Seg Neutrophils # 10.3 K/mm3 (1.8-7.7) H 02/08/19 16:26 APTT 30.1 Sec. (24.2-36.6) 02/08/19 17:14 890.59 ng/mlDDU (0-234) H 02/08/19 17:14 Sodium 140 mmol/L (137-145) 02/08/19 16:26 Potassium 4.0 mmol/L (3.6-5.0) 02/08/19 16:26 Chloride 102.7 mmol/L (98-107) 02/08/19 16:26 Carbon Dioxide 24 mmol/L (22-30) 08/15/19 16:26 17 mmol/L 02/08/19 16:26 BUN 25 mg/dL (7-17) H 02/08/19 16:26 3.1 mg/dL (0.7-1.2) H 02/08/19 16:26 Estimated GFR 15 ml/min 02/08/19 16:26 8 % 02/08/19 16:26 Glucose 181 mg/dL (65-100) H 02/08/19 16:26 Lactic Acid 0.80 mmol/L (0.7-2.0) 02/08/19 21:00 Calcium 8.6 mg/dL (8.4-10.2) 02/08/19 16:26 0.40 mg/dL (0.1-1.2) 02/08/19 16:26 AST 46 units/L (5-40) H 02/08/19 16:26 ALT 43 units/L (7-56) 02/08/19 16:26 123 units/L (35-129) 02/08/19 16:26 < 0.010 ng/mL (0.00-0.029) 02/08/19 16:26 NT-Pro-B Natriuret Pep 5451 pg/mL (0-900) H 02/08/19 16:26 6.9 g/dL (6.3-8.2) 02/08/19 16:26 3.2 g/dL (3.9-5) L 02/08/19 16:26 0.9 % 02/08/19 16:26 - Imaging and Cardiology Chest x-ray: report reviewed ( LUNGS / PLEURA: Bilateral interstitial edema and pleural effusions.), image reviewed Imaging and Cardiology: V/Q Scan: FINDINGS: Normal wash-in and washout of xenon radiotracer. No mismatch perfusion defect identified. IMPRESSION: Low probability for PTE CT Head: Findings: BRAIN/INTRACRANIAL STRUCTURES: Unenhanced CT images of the brain demonstrate no evidence of acute intracranial abnormality. Ventricles and sulci are normal in size and shape. There is no evidence of acute ischemic injury, hemorrhage, or mass. An old appearing left basal ganglia lacunar infarct is noted. This was not present at the time the prior exam,. Air-fluid levels are present in the maxillary sinuses bilaterally. The prior exam demonstrated right- sided sinus opacification only. There is prominent mucosal thickening also now present in the right frontal sinus, similar to the prior exam. EXTRACRANIAL STRUCTURES: Unremarkable. Impression: No acute intracranial abnormality. Paranasal sinus disease, including bilateral maxillary sinus air-fluid levels. Assessment and Plan Assessment and plan: 63 -year-old female with history of hypertension and diabetes, Diabetic foot ulcer status post debridement of left second toe d/t (one week ago at [facility]) who presents to [facility] ED with complaints of generalized weakness, dizziness, chest pain and sob. CT Head negative for acute intracranial abnorm alities. Acute CHF -CXR showed Bilateral interstitial edema and pleural effusions -BNP elevated at 5451 -IV diuretics -Cardiology consulted Cardiogenic Shock -Hold anti hypertensive meds -Started on dobutamine drip -Continue to monitor BP R/O PE -Elevated D-Dimer 890.59 -V/Q scan showed Low probability for PTE Acute hypoxic Respiratory Failure -No baseline home oxygen requirements -Currently on supplemental O2 -Continue supplemental O2, wean as tolerated -Respiratory assess and treat per protocol PUSHPA ?? superimposed CDK -Cr on admission 3.1 with GFR 15 -Nephrology consult -Avoid nephro toxic agents -Renal dose all meds Leukocytosis -WBC 12.6K -pt is afebrile, with no s/s of infection -BC pending -Continue to monitor for now; hold off on iv abx Mild to Moderate Malnutrition -BMI -Albumin 3.2 -Dietitian consult pending DM2 -POC BG monitoring -HgbA1c pending -SSI Coverage Anemia -Hgb on admission 8.5 -no s/s of active bleeding -Monitor Hgb, transfuse prn DVT PPX -on heparin Advance Directives: No VTE prophylaxis?: Chemical Plan of care discussed with patient/family: Yes
--- NOTE | 2019-02-09 00:58 | Event Note ---
63-year-old woman who presents to the hospital with dizziness and generalized weakness and shortness of breath. She has had recent debridement of left second to diabetic ulcer at [place]. The patient was not complaining of shortness of breath was found to be hypoxic even though she appeared comfortable. She denied looking in the past and when asked about shortness of breath patient admits to probably having some mild shortness of breath but had no respiratory distress, no history of heart failure chest x-ray shows bilateral interstitial edema and pleural effusions VQ scan low probability for PE Exam; bibasilar crackles Hypotension, likely cardiogenic shock,BP is not improving, dobutamine drip Acute hypoxic respiratory failure; supplemental oxygen Heart Failure -IV diuretics, some IV medications, JOSELO inhibitor and beta lynne, -Echo, cardiology consult, will also need coronary risk stratification Leukocytosis; no evidence of infection at this time, check UA Acute kidney failure likely due to vasomotor nephropathy from cardiogenic shock, cardiorenal syndrome ; patient will likely benefit from inotropic agents plus diuretics, nephrology consult Type 2 diabetes, ssi Left second toe diabetic ulcer, status post debridement at [facility], healing well, continuing wound care dvt ppx; chemical CCT 33 mins
[2019-02-09] MEDS ORDERED: DOBUTREX DRIP 500MG/D5W 250ML 500 MG/250 ML BAG IV SCH (01:00)
[2019-02-09] MEDS: LASIX IV SCH ×2 (02:55→17:46)
[2019-02-09 04:52] LABS: Bacteria,Urine 2+ /HPF (Negative); Bilirubin,Urine NEG (Negative); Blood,Urine SM (Negative); Color,Urine Amber (Yellow); Mucus,Urine FEW /HPF; Urobilinogen,Urine < 2.0 mg/dL (<2.0)
[2019-02-09 05:26] LABS: Basophils % (Auto) 0.3 % (0.0-1.8); Eosinophils # (Auto) 0.1 K/mm3 (0.0-0.4); Eosinophils % (Auto) 0.4 % (0.0-4.3); Hemoglobin 8.9 gm/dl (10.1-14.3); Lymphocytes # (Auto) 1.4 K/mm3 (1.2-5.4); Lymphocytes % (Auto) 8.9 % (13.4-35.0); Mean Corpuscular HGB Conc 33 % (30-34); Mean Corpuscular Volume 94 fl (79-97); Monocytes # (Auto) 1.5 K/mm3 (0.0-0.8); Platelet Count 204 K/mm3 (140-440); Red Blood Count 2.89 M/mm3 (3.65-5.03); Red Cell Distribution Width 15.3 % (13.2-15.2)
[2019-02-09 05:55] LABS: Calcium 8.8 mg/dL (8.4-10.2)
[2019-02-09] MEDS ORDERED: LASIX IV SCH (06:00)
--- NOTE | 2019-02-09 07:01 | Consultation ---
History of Present Illness Consult date: 02/09/19 Requesting physician: FATOU TAYLOR Consult reason: chest pain, shortness of breath History of present illness: 63 -year-old female with history of hypertension and diabetes, Diabetic foot ulcer status post debridement of left second toe d/t (one week ago at [facility]) who presents to [facility] ED with complaints of generalized weakness, dizziness. CT Head negative for acute intracranial abnormalities.v/q scan low probability. vital signs stable. cr elevated. trop essentially negative. hx obtained from son who is the weight caller. pt does not speak vietnamese. the chart states that the pt was having cp and sob. the son states that this was not the case. he states the chief complaint was weakness and dizziness. pt was hypotensive upon adm. now receiving iv dobutamine. bp improved. son states there is no hx of chf,mi,stroke,palp,or syncope. ecg: nsr low voltage no acute changes. Past History Past Medical History: diabetes, hypertension Past Surgical History: Other (Mass removed from under right arm. C- Section, left toe surgery) Social history: , lives with family. denies: smoking, alcohol abuse Family history: no significant family history Medications and Allergies Allergies Allergy/AdvReac Type Severity Reaction Status Date / Time No Known Allergies Allergy Verified 11/11/17 20:53 Home Medications Medication Instructions Recorded Confirmed Last Taken Type amLODIPine [Norvasc] 5 mg PO DAILY 03/09/17 02/08/19 02/08/19 History metFORMIN [Glucophage] 500 mg PO BID 03/09/17 02/08/19 02/08/19 History Active Meds: Active Medications Acetaminophen (Tylenol) 650 mg PO Q4H PRN PRN Reason: Pain MILD(1-3)/Fever >100.5/WHITEHEAD Aspirin (Aspirin) 325 mg PO QDAY [facility] Last Admin: 02/08/19 22:07 Dose: 325 mg Documented by: Dextrose (D50w (25gm) Syringe) 50 ml IV PRN PRN PRN Reason: Hypoglycemia Docusate Sodium (Colace) 100 mg PO BID [facility] Furosemide (Lasix) 40 mg IV 0600,1800 [facility] Last Admin: 02/09/19 02:55 Dose: 40 mg Documented by: Heparin Sodium (Porcine) (Heparin) 5,000 unit SUB-Q Q12HR [facility] Dobutamine HCl/Dextrose (Dobutrex Drip 500mg/D5w 250ml) 500 mg in 250 mls @ 4.89 mls/hr IV TITR [facility] Last Admin: 02/09/19 01:36 Dose: 2 mcg/kg/min, 4.89 mls/hr Documented by: Insulin Human Lispro (Humalog) 0 unit SUB-Q [facility]S [facility]; Protocol Ondansetron HCl (Zofran) 4 mg IV Q6H PRN PRN Reason: Nausea And Vomiting Sodium Chloride (Sodium Chloride Flush Syringe 10 Ml) 10 ml IV BID [facility] Sodium Chloride (Sodium Chloride Flush Syringe 10 Ml) 10 ml IV PRN PRN PRN Reason: LINE FLUSH Review of Systems Constitutional: weakness, no fever, no chills Eyes: bilateral: blurred vision (w/o) Ears, nose, mouth and throat: no epistaxis Cardiovascular: no syncope Respiratory: no hemoptysis Gastrointestinal: no abdominal pain Genitourinary Female: no flank pain Musculoskeletal: no frequent falls Integumentary: no rash Neurological: no transient paralysis, no syncope Psychiatric: no anxiety Endocrine: no cold intolerance, no heat intolerance Hematologic/Lymphatic: no easy bleeding Allergic/Immunologic: no urticaria Physical Examination Vital Signs Temp Pulse Resp BP Pulse Ox 98.4 F 80 20 74/46 74 L 02/08/19 15:51 02/08/19 15:51 02/08/19 15:51 02/08/19 15:51 02/08/19 15:51 General appearance: no acute distress HEENT: Positive: PERRL Neck: Positive: neck supple. Negative: JVD/HJR, Bruit Cardiac: Negative: Reg Rate and Rhythm, Audible Murmur Lungs: Positive: Rales (basilar) Neuro: Positive: Grossly Intact Abdomen: Positive: Soft. Negative: Tender Skin: Negative: Rash Musculoskeletal: Normal Range of Motion Extremities: Present: +1 Edema (ble), Other (pedal pulses intact) Results 02/09/19 04:42 02/09/19 04:42 Cardiac Enzymes 02/08/19 Range/Units 16:26 AST 46 H (5-40) units/L Coagulation 02/08/19 Range/Units 17:14 APTT 30.1 (24.2-36.6) Sec. CBC 02/08/19 02/09/19 Range/Units 16:26 04:42 WBC 12.6 H 16.3 H (4.5-11.0) K/mm3 RBC 2.77 L 2.89 L (3.65-5.03) M/mm3 Hgb 8.5 L 8.9 L (10.1-14.3) gm/dl Hct 25.8 L 27.0 L (30.3-42.9) % Plt Count 169 204 (140-440) K/mm3 Lymph # 1.2 1.4 (1.2-5.4) K/mm3 [place] # 1.1 H 1.5 H (0.0-0.8) K/mm3 Eos # 0.0 0.1 (0.0-0.4) K/mm3 Baso # 0.0 0.0 (0.0-0.1) K/mm3 Comprehensive Metabolic Panel 02/08/19 02/09/19 Range/Units 16:26 04:42 Sodium 140 142 (137-145) mmol/L Potassium 4.0 3.9 (3.6-5.0) mmol/L Chloride 102.7 106.3 (98-107) mmol/L Carbon Dioxide 24 21 L (22-30) mmol/L BUN 25 H 28 H (7-17) mg/dL Creatinine 3.1 H 3.5 H (0.7-1.2) mg/dL Glucose 181 H 123 H (65-100) mg/dL Calcium 8.6 8.8 (8.4-10.2) mg/dL AST 46 H (5-40) units/L ALT 43 (7-56) units/L Alkaline Phosphatase 123 (35-129) units/L Total Protein 6.9 (6.3-8.2) g/dL Albumin 3.2 L (3.9-5) g/dL Assessment and Plan chest pain not typical for myocardial ischemia. sob with interstitial edema and pl eff suggestive of chf. agree nephrology consult will review echo
--- NOTE | 2019-02-09 08:02 | Progress Note ---
Assessment and Plan Assessment and plan: Patient is a 63 -year-old French speaking woman with a history of hypertension, DM, Diabetic foot ulcer status post debridement of left second toe d/t (one week ago at [facility]) who presents to [facility] ED with complaints of generalized weakness, dizziness, chest pain and sob. CT Head negative for acute intracranial abnormalities. Son Philipp at bedside was the Color Worker. * V/Q Scan: FINDINGS: Normal wash-in and washout of xenon radiotracer. No mismatch perfusion defect identified. IMPRESSION: Low probability for PTE * CT Head: Findings: BRAIN/INTRACRANIAL STRUCTURES: Unenhanced CT images of the brain demonstrate no evidence of acute intracranial abnormality. Ventricles and sulci are normal in size and shape. There is no evidence of acute ischemic injury, hemorrhage, or mass. An old appearing left basal ganglia lacunar infarct is noted. This was not present at the time the prior exam,. Air-fluid levels are present in the maxillary sinuses bilaterally. The prior exam demonstrated right-sided sinus opacification only. There is prominent mucosal thickening also now present in the right frontal sinus, similar to the prior exam. EXTRACRANIAL STRUCTURES: Unremarkable. Impression: No acute intracranial abnormality. Paranasal sinus disease, including bilateral maxillary sinus air- fluid levels. * 2D ECHO conclusions: Normal cardiac chamber dimensions, LVEF 50-55%, normal RVSF, mild TR, small pericardial effusion that does not appear to be hemodynamically significant, moderate left pleural effusion * pCXR lungs with bilateral interstitial edema and pleural effusions Acute diastolic HF -diastolic heart failure, -BNP elevated at 5451 -IV diuretics -Cardiology consulted Cardiogenic Shock -Hold anti hypertensive meds -Started on dobutamine drip, now off -Continue to monitor BP Acute hypoxic Respiratory Failure -No baseline home oxygen requirements -Currently on supplemental O2 -Continue supplemental O2, wean as tolerated -Respiratory assess and treat per protocol ruled out PE -Elevated D-Dimer 890.59 -V/Q scan showed Low probability for PTE Acute kidney failure likely due to vasomotor nephropathy from cardiogenic shock, cardiorenal syndrome, ATN, poa -Cr on admission 3.1 with GFR 15 -Nephrology consult -Avoid nephro toxic agents -Renal dose all meds Leukocytosis -WBC 12.6K -pt is afebrile, with no s/s of infection -BC pending -Continue to monitor for now; hold off on iv abx Necrotic 2nd left toes with sutures in place, done at [facility] -Wound care consult Mild to Moderate Malnutrition -BMI -Albumin 3.2 -Dietitian consult pending DM2 -POC BG monitoring -HgbA1c 6.1 -SSI Coverage Anemia -Hgb on admission 8.5 -no s/s of active bleeding -Monitor Hgb, transfuse prn DVT PPX -on heparin History Interval history: Patient was seen and examined. Follow-up on current diagnosis of CHF. No overnight events reported to me. Patient denies any chest pain, shortness breath, nausea/vomiting or severe headaches. Imaging, nursing note, chart, labs and old chart reviewed. Discussed with patient. Hospitalist Physical - Physical exam Narrative exam: Gen: WDWN, NAD, Awake, Alert, Orientated HEENT: NCAT, EOMI, PERRL, OP Clear Neck: supple, no adenopathy, no thyromegaly, no JVD CVS/Heart: RRR, normal S1S2, pulses present bilaterally Chest/Lungs: bibasilar crackles, Symmetrical chest expansion, good air entry b ilaterally GI/Abdomen: soft, NTND, good bowel sounds, no guarding or rebound /Bladder: no suprapubic tenderness, no CVA or paraspinal tenderness Extermity/Skin: no c/c/e, no obvious rash MSK: FROM x 4 Neuro: CN 2-12 grossly intact, no new focal deficits Psych: calm - Constitutional Vitals: Temp Pulse Resp BP Pulse Ox 98.7 F 105 H 18 122/62 95 02/09/19 07:10 02/09/19 07:10 02/09/19 07:10 02/09/19 07:10 02/09/19 07:10 General appearance: Present: no acute distress Results - Labs CBC & Chem 7: 02/09/19 04:42 02/09/19 04:42 Labs: Laboratory Last Values WBC 16.3 K/mm3 (4.5-11.0) H 02/09/19 04:42 RBC 2.89 M/mm3 (3.65-5.03) L 02/09/19 04:42 Hgb 8.9 gm/dl (10.1-14.3) L 02/09/19 04:42 Hct 27.0 % (30.3-42.9) L 02/09/19 04:42 MCV 94 fl (79-97) 02/09/19 04:42 MCH 31 pg (28-32) 02/09/19 04:42 MCHC 33 % (30-34) 02/09/19 04:42 RDW 15.3 % (13.2-15.2) H 02/09/19 04:42 Plt Count 204 K/mm3 (140-440) 02/09/19 04:42 Lymph % (Auto) 8.9 % (13.4-35.0) L 02/09/19 04:42 [place] % (Auto) 9.0 % (0.0-7.3) H 02/09/19 04:42 Eos % (Auto) 0.4 % (0.0-4.3) 02/09/19 04:42 Baso % (Auto) 0.3 % (0.0-1.8) 02/09/19 04:42 Lymph # 1.4 K/mm3 (1.2-5.4) 02/09/19 04:42 [place] # 1.5 K/mm3 (0.0-0.8) H 02/09/19 04:42 Eos # 0.1 K/mm3 (0.0-0.4) 02/09/19 04:42 Baso # 0.0 K/mm3 (0.0-0.1) 02/09/19 04:42 Seg Neutrophils % 81.4 % (40.0-70.0) H 02/09/19 04:42 Seg Neutrophils # 13.2 K/mm3 (1.8-7.7) H 02/09/19 04:42 APTT 30.1 Sec. (24.2-36.6) 02/08/19 17:14 890.59 ng/mlDDU (0-234) H 02/08/19 17:14 Sodium 142 mmol/L (137-145) 02/09/19 04:42 Potassium 3.9 mmol/L (3.6-5.0) 02/09/19 04:42 Chloride 106.3 mmol/L (98-107) 02/09/19 04:42 Carbon Dioxide 21 mmol/L (22-30) L 02/09/19 04:42 19 mmol/L 02/09/19 04:42 BUN 28 mg/dL (7-17) H 02/09/19 04:42 3.5 mg/dL (0.7-1.2) H 02/09/19 04:42 Estimated GFR 13 ml/min 02/09/19 04:42 8 % 02/09/19 04:42 Glucose 123 mg/dL (65-100) H 02/09/19 04:42 6.1 % (4-6) H 02/08/19 16:25 Lactic Acid 0.80 mmol/L (0.7-2.0) 02/08/19 21:00 Calcium 8.8 mg/dL (8.4-10.2) 02/09/19 04:42 0.40 mg/dL (0.1-1.2) 02/08/19 16:26 AST 46 units/L (5-40) H 02/08/19 16:26 ALT 43 units/L (7-56) 02/08/19 16:26 123 units/L (35-129) 02/08/19 16:26 0.016 ng/mL (0.00-0.029) 02/09/19 04:42 NT-Pro-B Natriuret Pep 5451 pg/mL (0-900) H 02/08/19 16:26 6.9 g/dL (6.3-8.2) 02/08/19 16:26 3.2 g/dL (3.9-5) L 02/08/19 16:26 0.9 % 02/08/19 16:26 Shelli (Yellow) 02/09/19 03:45 Cloudy (Clear) 02/09/19 03:45 5.0 (5.0-7.0) 02/09/19 03:45 Ur Specific [place] 1.013 (1.003-1.030) 02/09/19 03:45 30 mg/dl mg/dL (Negative) 02/09/19 03:45 Neg mg/dL (Negative) 02/09/19 03:45 Neg mg/dL (Negative) 02/09/19 03:45 Sm (Negative) 02/09/19 03:45 Neg (Negative) 02/09/19 03:45 Neg (Negative) 02/09/19 03:45 < 2.0 mg/dL (<2.0) 02/09/19 03:45 Ur Leukocyte Esterase Lg (Negative) 02/09/19 03:45 48.0 /HPF (0.0-6.0) H 02/09/19 03:45 34.0 /HPF (0.0-6.0) 02/09/19 03:45 U Epithel Cells (Auto) 22.0 /HPF (0-13.0) H 02/09/19 03:45 2+ /HPF (Negative) 02/09/19 03:45 Few /HPF 02/09/19 03:45 Few /HPF 02/09/19 03:45 Active Medications - Current Medications Current Medications: Generic Name Dose Route Start Last Admin Trade Name Freq PRN Reason Stop Dose Admin Acetaminophen 650 mg 02/08/19 22:15 Tylenol PO Q4H PRN Pain MILD(1-3)/Fever >100.5/WHITEHEAD Aspirin 325 mg 02/08/19 22:00 02/08/19 22:07 Aspirin PO 325 mg QDAY AELSSANDRO Administration Dextrose 50 ml 02/08/19 22:15 D50w (25gm) Syringe IV PRN PRN Hypoglycemia Docusate Sodium 100 mg 02/09/19 10:00 Colace PO BID ALESSANDRO Furosemide 40 mg 02/09/19 02:00 02/09/19 02:55 Lasix IV 40 mg 0600,1800 ALESSANDRO Administration Heparin Sodium (Porcine) 5,000 unit 02/09/19 10:00 Heparin SUB-Q Q12HR [facility] Dobutamine HCl/Dextrose 500 mg in 250 mls @ 4.89 mls/hr 02/09/19 01:00 02/09/19 01:36 Dobutrex Drip 500mg/D5w 250ml IV 2 mcg/kg/min TITR ALESSANDRO 4.89 mls/hr Administration 2 MCG/KG/MIN Insulin Human Lispro 0 unit 02/09/19 07:30 Humalog SUB-Q ACHS [facility] Protocol Ondansetron HCl 4 mg 02/08/19 22:15 Zofran IV Q6H PRN Nausea And Vomiting Sodium Chloride 10 ml 02/09/19 10:00 Sodium Chloride Flush Syringe 10 Ml IV BID ALESSANDRO Sodium Chloride 10 ml 02/08/19 22:15 Sodium Chloride Flush Syringe 10 Ml IV PRN PRN LINE FLUSH
[2019-02-09] MEDS: HumaLOG SUB-Q SCH ×4 (08:39→21:39)
[2019-02-09] MEDS ORDERED: GLUCOPHAGE PO SCH (10:00)
[2019-02-09] MEDS ORDERED: NORVASC PO SCH (10:00)
[2019-02-09] MEDS: HEPARIN SUB-Q SCH ×2 (10:03→21:39)
[2019-02-09] MEDS: COLACE PO SCH ×2 (10:03→21:39)
[2019-02-09] MEDS: ASPIRIN PO SCH (10:03)
[2019-02-09] MEDS: SODIUM CHLORIDE FLUSH SYRINGE 10 ML IV SCH ×2 (10:11→21:40)
--- NOTE | 2019-02-09 11:46 | Vascular Lab Report ---
DUPLEX DOPPLER LOWER EXTREMITY VEINS, BILATERAL INDICATION: LE edema. TECHNIQUE: Duplex doppler imaging was performed through the veins of both lower extremities using venous chiquita rogelio and other maneuvers. COMPARISON: None available. FINDINGS: Right Common Femoral vein: Negative. Right Superficial Femoral vein: Negative. Right Popliteal vein: Negative. Right Calf veins: Negative. Left Common Femoral vein: Negative. Left Superficial Femoral vein: Negative. Left Popliteal vein: Negative. Left Calf veins: Negative. Additional findings: None. IMPRESSION: 1. No sonographic evidence for DVT in either lower extremity. Signer Name: Raheem Chase MD Signed: 02/09/2019 11:41 AM Workstation Name: [id number]
--- NOTE | 2019-02-09 13:58 | Consultation ---
History of Present Illness - Reason for Consult Consult date: 02/09/19 acute renal failure - History of Present Illness Mrs. Gómez Kennedy is a 63yo with DM and osteomyelitis s/p recent hospi talization at [facility] who presented to the ED with acute onset of weakness. Per son, patient was unable to stand/ambulate due to weakness. She denies chest pain, SOB, VORA. She denies N/V. Appetite has been good per son. She has no prior hx of kidney disease. She denies dysuria, hematuria, NSAID use. Past History Past Medical History: diabetes, hypertension Past Surgical History: Other (Mass removed from under right arm. C- Section, left toe surgery) Social history: , lives with family. denies: smoking, alcohol abuse Family history: no significant family history Medications and Allergies Allergies Allergy/AdvReac Type Severity Reaction Status Date / Time No Known Allergies Allergy Verified 11/11/17 20:53 Home Medications Medication Instructions Recorded Confirmed Last Taken Type amLODIPine [Norvasc] 5 mg PO DAILY 03/09/17 02/08/19 02/08/19 History metFORMIN [Glucophage] 500 mg PO BID 03/09/17 02/08/19 02/08/19 History Active Meds: Active Medications Acetaminophen (Tylenol) 650 mg PO Q4H PRN PRN Reason: Pain MILD(1-3)/Fever >100.5/WHITEHEAD Aspirin (Aspirin) 325 mg PO QDAY [facility] Last Admin: 02/09/19 10:03 Dose: 325 mg Documented by: Dextrose (D50w (25gm) Syringe) 50 ml IV PRN PRN PRN Reason: Hypoglycemia Docusate Sodium (Colace) 100 mg PO BID [facility] Last Admin: 02/09/19 10:03 Dose: 100 mg Documented by: Furosemide (Lasix) 40 mg IV 0600,1800 [facility] Last Admin: 02/09/19 02:55 Dose: 40 mg Documented by: Heparin Sodium (Porcine) (Heparin) 5,000 unit SUB-Q Q12HR [facility] Last Admin: 02/09/19 10:03 Dose: 5,000 unit Documented by: Dobutamine HCl/Dextrose (Dobutrex Drip 500mg/D5w 250ml) 500 mg in 250 mls @ 4.89 mls/hr IV TITR [facility] Last Admin: 02/09/19 01:36 Dose: 2 mcg/kg/min, 4.89 mls/hr Documented by: Insulin Human Lispro (Humalog) 0 unit SUB-Q ACHS [facility]; Protocol Last Admin: 02/09/19 08:39 Dose: Not Given Documented by: Ondansetron HCl (Zofran) 4 mg IV Q6H PRN PRN Reason: Nausea And Vomiting Sodium Chloride (Sodium Chloride Flush Syringe 10 Ml) 10 ml IV BID [facility] Last Admin: 02/09/19 10:11 Dose: 10 ml Documented by: Sodium Chloride (Sodium Chloride Flush Syringe 10 Ml) 10 ml IV PRN PRN PRN Reason: LINE FLUSH Review of Systems All systems: negative Exam - Vital Signs Vital signs: Vital Signs Temp Pulse Resp BP Pulse Ox 98.4 F 80 20 74/46 74 L 02/08/19 15:51 02/08/19 15:51 02/08/19 15:51 02/08/19 15:51 02/08/19 15:51 - General Appearance General appearance: well-developed, well-nourished EENT: ATNC Respiratory: Decreased Breath Sounds Heart: regular, S1S2 Gastrointestinal: Present: normal. Absent: tenderness, distended Integumentary: no rash, warm and dry Psychiatric: cooperative Results - Lab Results 02/09/19 04:42 02/10/19 03:37 Most recent lab results Calcium 8.8 mg/dL (8.4-10.2) 02/09/19 04:42 Assessment and Plan Impression: * Acute kidney injury secondary to ATN vs AIN --Renal ultrasound: right kidney is 12.3 cm, left kidney is 12.9 cm in length. There is no hydronephrosis (Jan 2019 - [facility]) --SCr 0.95mg/dL on Jan 29, 2019 --Hx of PUSHPA at [facility] - SCr 2.17mg/dL at discharge (SCr was trending up at id) * Pulmonary edema --TTE: LV normal size. Nmll LV wall thickness. LV wall motion nml. EF > 55%. LVEF nml. Nml LV diastolic function (Feb 04 at [facility]). * Urinary tract infection * Acute osteomyelitis of the left foot second toe distal phalanx (MRI Jan 30 2019 @ [facility]) * Type II DM * Hypertension Plan: * Records from [facility] reviewed - PUSHPA was attributed to ATN due to vancomycin per nephrology group following her at that time. SCr was worsening at time of discharge. PUSHPA likely ongoing, progression from intial insult at prior hospitalzation * Cautious diuresis * Will obtain serologies, urine eosinophils * Abx per primary team * Strict I/O * Continue to hold ACEi * Avoid potential nephrotoxins * Dose medications for renal function
[2019-02-10] MEDS: LASIX IV SCH (05:21)
[2019-02-10] MEDS: HumaLOG SUB-Q SCH ×4 (07:30→22:39)
[2019-02-10 08:50] LABS: Calcium 9.2 mg/dL (8.4-10.2)
--- NOTE | 2019-02-10 09:01 | Progress Note ---
Assessment and Plan The patient's cardiac status is improving. Recommend discontinuing dobutamine as her EF is normal. Nephrology assisting with diuresis - recommendations noted. The patient was evaluated by Dr. Mack, who developed the assessment and plan. - Patient Problems (1) Hypoglycemia Current Visit: Yes Status: Acute (2) Hypertension Current Visit: Yes Status: Chronic (3) Acute heart failure with preserved ejection fraction (HFpEF) Current Visit: Yes Status: Acute (4) PUSHPA (acute kidney injury) Current Visit: Yes Status: Acute (5) Respiratory failure with hypoxia Current Visit: Yes Status: Acute (6) Diabetes Current Visit: Yes Status: Chronic Subjective Date of service: 02/10/19 Interval history: The patient is lying in bed in [facility]. She is hypertensive this morning. Objective Last Vital Signs Temp 97.6 F 02/10/19 07:53 Pulse 103 H 02/10/19 08:44 Resp 14 02/10/19 07:53 BP 166/78 02/10/19 07:53 Pulse Ox 94 02/10/19 07:53 - Physical Examination General: Appears Well HEENT: Positive: PERRL Neck: Positive: neck supple. Negative: JVD/HJR, Bruit Cardiac: Positive: Reg Rate and Rhythm Lungs: Positive: Normal Exam Neuro: Positive: Grossly Intact Abdomen: Positive: Soft. Negative: Tender Skin: Negative: Rash Musculoskeletal: Normal Range of Motion Extremities: Present: +1 Edema (ble), Other (pedal pulses intact) - Labs and Meds Comprehensive Metabolic Panel 02/10/19 02/10/19 Range/Units 03:37 07:59 Sodium 140 (137-145) mmol/L Potassium 3.9 (3.6-5.0) mmol/L Chloride 103.2 (98-107) mmol/L Carbon Dioxide 23 (22-30) mmol/L BUN 32 H (7-17) mg/dL Creatinine 4.2 H (0.7-1.2) mg/dL Glucose 169 H 174 H (65-100) mg/dL Calcium 9.2 (8.4-10.2) mg/dL
--- NOTE | 2019-02-10 09:42 | Progress Note ---
Assessment and Plan Impression: * Acute kidney injury secondary to ATN vs AIN --Renal ultrasound: right kidney is 12.3 cm, left kidney is 12.9 cm in length. There is no hydronephrosis (Jan 2019 - [facility]) --SCr 0.95mg/dL on Jan 29, 2019 --Hx of PUSHPA at [facility] - SCr 2.17mg/dL at discharge (SCr was trending up at dc) * Pulmonary edema --TTE: LV normal size. Nmll LV wall thickness. LV wall motion nml. EF > 55%. LVEF nml. Nml LV diastolic function (Feb 04 at [facility]). * Urinary tract infection * Acute osteomyelitis of the left foot second toe distal phalanx (MRI Jan 30 2019 @ [facility]) * Type II DM * Hypertension Plan: * Records from [facility] reviewed - PUSHPA was attributed to ATN due to vancomycin per nephrology group following her at that time. SCr was worsening at time of di scharge. PUSHPA likely ongoing, progression from intial insult at prior hospitalzation * Will stop diuretics due to rise in SCr * Start 0.45% NS 75ml/hour * Await serologies, urine eosinophils * Rocephin 1g IV q24h for UTI * Abx per primary team * Strict I/O * Continue to hold ACEi * Avoid potential nephrotoxins * Dose medications for renal function * Strict I/O * Renal prognosis is guarded - patient may require dialysis * Son at bedside - updated Subjective Date of service: 02/10/19 Interval history: Patient has no complaints this AM. Objective - Vital Signs Vital signs: Vital Signs - 12hr 02/09/19 02/10/19 02/10/19 23:31 00:37 03:51 Temperature 99.8 F H 98.3 F 97.4 F L Pulse Rate 108 H 112 H 95 H Respiratory 20 20 20 Rate Blood Pressure 169/86 164/75 167/88 O2 Sat by Pulse 90 87 91 Oximetry 02/10/19 02/10/19 02/10/19 04:00 07:53 08:44 Temperature 97.5 F L 97.6 F Pulse Rate 95 H 109 H 103 H Respiratory 18 14 Rate Blood Pressure 161/76 166/78 O2 Sat by Pulse 93 94 Oximetry - General Appearance General appearance: well-developed, well-nourished EENT: ATNC Respiratory: Present: Clear to Ascultation Cardiology: regular, S1S2 Gastrointestinal: normal Integumentary: warm and dry Musculoskeletal: other (trace edema) Psychiatric: cooperative - Lab 02/09/19 04:42 02/10/19 07:59 Most recent lab results Calcium 9.2 mg/dL (8.4-10.2) 02/10/19 07:59 Medications & Allergies - Medications Allergies/Adverse Reactions: Allergies No Known Allergies Allergy (Verified 11/11/17 20:53) Home Medications: Home Medications Medication Instructions Recorded Confirmed Last Taken Type amLODIPine [Norvasc] 5 mg PO DAILY 03/09/17 02/08/19 02/08/19 History metFORMIN [Glucophage] 500 mg PO BID 03/09/17 02/08/19 02/08/19 History Active Medications: Generic Name Dose Route Start Last Admin Trade Name Freq PRN Reason Stop Dose Admin Acetaminophen 650 mg 02/08/19 22:15 Tylenol PO Q4H PRN Pain MILD(1-3)/Fever >100.5/WHITEHEAD Aspirin 325 mg 02/08/19 22:00 02/09/19 10:03 Aspirin PO 325 mg QDAY ALESSANDRO Administration Dextrose 50 ml 02/08/19 22:15 02/10/19 01:10 D50w (25gm) Syringe IV 50 ml PRN PRN Administration Hypoglycemia Docusate Sodium 100 mg 02/09/19 10:00 02/09/19 21:39 Colace PO 100 mg BID ALESSANDRO Administration Heparin Sodium (Porcine) 5,000 unit 02/09/19 10:00 02/09/19 21:39 Heparin SUB-Q 5,000 unit Q12HR ALESSANDRO Administration Dobutamine HCl/Dextrose 500 mg in 250 mls @ 4.89 mls/hr 02/09/19 01:00 02/09/19 01:36 Dobutrex Drip 500mg/D5w 250ml IV 2 mcg/kg/min TITR ALESSANDRO 4.89 mls/hr Administration 2 MCG/KG/MIN Ceftriaxone Sodium 1 gm in 50 mls @ 100 mls/hr 02/10/19 10:00 Rocephin/Ns 1 Gm/50 Ml IV Q24HR [facility] Protocol Insulin Human Lispro 0 unit 02/09/19 07:30 02/10/19 07:30 Humalog SUB-Q Not Given ACHS [facility] Protocol Ondansetron HCl 4 mg 02/08/19 22:15 Zofran IV Q6H PRN Nausea And Vomiting Sodium Chloride 10 ml 02/09/19 10:00 02/09/19 21:40 Sodium Chloride Flush Syringe 10 Ml IV 10 ml BID ALESSANDRO Administration Sodium Chloride 10 ml 02/08/19 22:15 Sodium Chloride Flush Syringe 10 Ml IV PRN PRN LINE FLUSH
[2019-02-10] MEDS: HEPARIN SUB-Q SCH ×2 (10:41→22:40)
[2019-02-10] MEDS: ROCEPHIN/NS 1 GM/50 ML 1 GM/50 ML BAG IV SCH (10:41)
[2019-02-10] MEDS: ASPIRIN PO SCH (10:41)
[2019-02-10] MEDS: SODIUM CHLORIDE FLUSH SYRINGE 10 ML IV SCH ×2 (10:41→22:41)
[2019-02-10] MEDS: COLACE PO SCH ×2 (10:41→22:39)
--- NOTE | 2019-02-10 15:50 | Progress Note ---
Assessment and Plan Assessment and plan: Patient is a 63 -year-old German speaking woman with a history of hypertension, DM, Diabetic foot ulcer status post debridement of left second toe d/t (one week ago at [facility]) who presents to [facility] ED with complaints of generalized weakness, dizziness, chest pain and sob. CT Head negative for acute intracranial abnormalities. Son Philipp at bedside was the Licensed Retail Supervisor. * V/Q Scan: FINDINGS: Normal wash-in and washout of xenon radiotracer. No mismatch perfusion defect identified. IMPRESSION: Low probability for PTE * CT Head: Findings: BRAIN/INTRACRANIAL STRUCTURES: Unenhanced CT images of the brain demonstrate no evidence of acute intracranial abnormality. Ventricles and sulci are normal in size and shape. There is no evidence of acute ischemic injury, hemorrhage, or mass. An old appearing left basal ganglia lacunar infarct is noted. This was not present at the time the prior exam,. Air-fluid levels are present in the maxillary sinuses bilaterally. The prior exam demonstrated right-sided sinus opacification only. There is prominent mucosal thickening also now present in the right frontal sinus, similar to the prior exam. EXTRACRANIAL STRUCTURES: Unremarkable. Impression: No acute intracranial abnormality. Paranasal sinus disease, including bilateral maxillary sinus air- fluid levels. * 2D ECHO conclusions: Normal cardiac chamber dimensions, LVEF 50-55%, normal RVSF, mild TR, small pericardial effusion that does not appear to be hemodynamically significant, moderate left pleural effusion * pCXR lungs with bilateral interstitial edema and pleural effusions Acute diastolic HF -diastolic heart failure, -BNP elevated at 5451 -IV diuretics on hold due to worsening renal function. -Cardiology consulted Cardiogenic Shock, resolved -Hold anti hypertensive meds -Started on dobutamine drip now off -Continue to monitor BP Acute hypoxic Respiratory Failure, resolved, off o2 -No baseline home oxygen requirements -weaned off supplemental O2 -Respiratory assess and treat per protocol ruled out PE -Elevated D-Dimer -V/Q scan showed Low probability for PTE Acute kidney failure likely due to ATN vasomotor nephropathy from cardiogenic shock, cardiorenal syndrome, poa -additional history garnered from Dr. Medina, basically ARF from ATN/Vancomycin and was worsening when d/c from [facility] and this worsening progression is from initial insult at prior hospitalization at [facility] -Cr on admission 3.1 with GFR 15 -Nephrology consult -Avoid nephro toxic agents -Renal dose all meds Leukocytosis -WBC increased -monitor cbc closely -pt is afebrile, with no s/s of infection -BC pending -Continue to monitor for now; -Consulted ID Necrotic 2nd left toes with sutures in place, done at [facility] -Wound care consult -Consult Mild to Moderate Malnutrition -BMI -Albumin 3.2 -Dietitian consult pending DM2 -POC BG monitoring -HgbA1c 6.1 -SSI Coverage Anemia of chronic disease -Hgb on admission 8.5 -no s/s of active bleeding -Monitor Hgb, transfuse prn DVT PPX -on heparin History Interval history: Patient was seen and examined. Follow-up on current diagnosis of CHF. No overnight events reported to me. Patient denies any chest pain, shortness breath, nausea/vomiting or severe headaches. Imaging, nursing note, chart, labs and old chart reviewed. Discussed with patient. Hospitalist Physical - Physical exam Narrative exam: Gen: WDWN, NAD, Awake, Alert, Orientated HEENT: NCAT, EOMI, PERRL, OP Clear Neck: supple, no adenopathy, no thyromegaly, no JVD CVS/Heart: RRR, normal S1S2, pulses present bilaterally Chest/Lungs: bibasilar crackles, Symmetrical chest expansion, good air entry bilaterally GI/Abdomen: soft, NTND, good bowel sounds, no guarding or rebound /Bladder: no suprapubic tenderness, no CVA or paraspinal tenderness Extermity/Skin: no c/c/e, no obvious rash MSK: FROM x 4 Neuro: CN 2-12 grossly intact, no new focal deficits Psych: calm - Constitutional Vitals: Temp Pulse Resp BP Pulse Ox 98.6 F 98 H 14 153/78 96 02/10/19 12:38 02/10/19 12:38 02/10/19 12:38 02/10/19 12:38 02/10/19 12:38 General appearance: Present: no acute distress Results - Labs CBC & Chem 7: 02/09/19 04:42 02/10/19 07:59 Labs: Laboratory Last Values WBC 16.3 K/mm3 (4.5-11.0) H 02/09/19 04:42 RBC 2.89 M/mm3 (3.65-5.03) L 02/09/19 04:42 Hgb 8.9 gm/dl (10.1-14.3) L 02/09/19 04:42 Hct 27.0 % (30.3-42.9) L 02/09/19 04:42 MCV 94 fl (79-97) 02/09/19 04:42 MCH 31 pg (28-32) 02/09/19 04:42 MCHC 33 % (30-34) 02/09/19 04:42 RDW 15.3 % (13.2-15.2) H 02/09/19 04:42 Plt Count 204 K/mm3 (140-440) 02/09/19 04:42 Lymph % (Auto) 8.9 % (13.4-35.0) L 02/09/19 04:42 [place] % (Auto) 9.0 % (0.0-7.3) H 02/09/19 04:42 Eos % (Auto) 0.4 % (0.0-4.3) 02/09/19 04:42 Baso % (Auto) 0.3 % (0.0-1.8) 02/09/19 04:42 Lymph # 1.4 K/mm3 (1.2-5.4) 02/09/19 04:42 [place] # 1.5 K/mm3 (0.0-0.8) H 02/09/19 04:42 Eos # 0.1 K/mm3 (0.0-0.4) 02/09/19 04:42 Baso # 0.0 K/mm3 (0.0-0.1) 02/09/19 04:42 Seg Neutrophils % 81.4 % (40.0-70.0) H 02/09/19 04:42 Seg Neutrophils # 13.2 K/mm3 (1.8-7.7) H 02/09/19 04:42 APTT 30.1 Sec. (24.2-36.6) 02/08/19 17:14 890.59 ng/mlDDU (0-234) H 02/08/19 17:14 Sodium 140 mmol/L (137-145) 02/10/19 07:59 Potassium 3.9 mmol/L (3.6-5.0) 02/10/19 07:59 Chloride 103.2 mmol/L (98-107) 02/10/19 07:59 Carbon Dioxide 23 mmol/L (22-30) 02/10/19 07:59 18 mmol/L 02/10/19 07:59 BUN 32 mg/dL (7-17) H 02/10/19 07:59 4.2 mg/dL (0.7-1.2) H 02/10/19 07:59 Estimated GFR 11 ml/min 02/10/19 07:59 8 % 02/10/19 07:59 Glucose 174 mg/dL (65-100) H 02/10/19 07:59 POC Glucose 190 (70-105) H 02/10/19 11:42 6.1 % (4-6) H 02/08/19 16:25 Lactic Acid 0.80 mmol/L (0.7-2.0) 02/08/19 21:00 Calcium 9.2 mg/dL (8.4-10.2) 02/10/19 07:59 0.40 mg/dL (0.1-1.2) 02/08/19 16:26 AST 46 units/L (5-40) H 02/08/19 16:26 ALT 43 units/L (7-56) 02/08/19 16:26 123 units/L (35-129) 02/08/19 16:26 0.016 ng/mL (0.00-0.029) 02/09/19 04:42 NT-Pro-B Natriuret Pep 5451 pg/mL (0-900) H 02/08/19 16:26 6.9 g/dL (6.3-8.2) 02/08/19 16:26 3.2 g/dL (3.9-5) L 02/08/19 16:26 0.9 % 02/08/19 16:26 Shelli (Yellow) 02/09/19 03:45 Cloudy (Clear) 02/09/19 03:45 5.0 (5.0-7.0) 02/09/19 03:45 Ur Specific [place] 1.013 (1.003-1.030) 02/09/19 03:45 30 mg/dl mg/dL (Negative) 02/09/19 03:45 Neg mg/dL (Negative) 02/09/19 03:45 Neg mg/dL (Negative) 02/09/19 03:45 Sm (Negative) 02/09/19 03:45 Neg (Negative) 02/09/19 03:45 Neg (Negative) 02/09/19 03:45 < 2.0 mg/dL (<2.0) 02/09/19 03:45 Ur Leukocyte Esterase Lg (Negative) 02/09/19 03:45 48.0 /HPF (0.0-6.0) H 02/09/19 03:45 34.0 /HPF (0.0-6.0) 02/09/19 03:45 U Epithel Cells (Auto) 22.0 /HPF (0-13.0) H 02/09/19 03:45 2+ /HPF (Negative) 02/09/19 03:45 Few /HPF 02/09/19 03:45 Few /HPF 02/09/19 03:45 Active Medications - Current Medications Current Medications: Generic Name Dose Route Start Last Admin Trade Name Freq PRN Reason Stop Dose Admin Acetaminophen 650 mg 02/08/19 22:15 Tylenol PO Q4H PRN Pain MILD(1-3)/Fever >100.5/WHITEHEAD Aspirin 325 mg 02/08/19 22:00 02/10/19 10:41 Aspirin PO 325 mg QDAY ALESSANDRO Administration Dextrose 50 ml 02/08/19 22:15 02/10/19 01:10 D50w (25gm) Syringe IV 50 ml PRN PRN Administration Hypoglycemia Docusate Sodium 100 mg 02/09/19 10:00 02/10/19 10:41 Colace PO 100 mg BID ALESSANDRO Administration Heparin Sodium (Porcine) 5,000 unit 02/09/19 10:00 02/10/19 10:41 Heparin SUB-Q 5,000 unit Q12HR ALESSANDRO Administration Ceftriaxone Sodium 1 gm in 50 mls @ 100 mls/hr 02/10/19 10:00 02/10/19 10:41 Rocephin/Ns 1 Gm/50 Ml IV 100 mls/hr Q24HR ALESSANDRO Administration Protocol Sodium Chloride 1,000 mls @ 75 mls/hr 02/10/19 10:00 Nacl 0.45% 1000 Ml IV DIRECT ALESSANDRO Insulin Human Lispro 0 unit 02/09/19 07:30 02/10/19 12:05 Humalog SUB-Q 2 unit ACHS ALESSANDRO Administration Protocol Ondansetron HCl 4 mg 02/08/19 22:15 Zofran IV Q6H PRN Nausea And Vomiting Sodium Chloride 10 ml 02/09/19 10:00 02/10/19 10:41 Sodium Chloride Flush Syringe 10 Ml IV 10 ml BID ALESSANDRO Administration Sodium Chloride 10 ml 02/08/19 22:15 Sodium Chloride Flush Syringe 10 Ml IV PRN PRN LINE FLUSH
[2019-02-11 05:26] LABS: Hematocrit 27.5 % (30.3-42.9); Hemoglobin 9.6 gm/dl (10.1-14.3); Mean Corpuscular HGB Conc 35 % (30-34); Mean Corpuscular Volume 93 fl (79-97); Platelet Count 198 K/mm3 (140-440); Red Blood Count 2.95 M/mm3 (3.65-5.03)
[2019-02-11 05:50] LABS: Calcium 8.2 mg/dL (8.4-10.2)
[2019-02-11] MEDS: NACL 0.45% 1000 ML 1,000 ML IV SCH (06:06)
[2019-02-11] MEDS: HumaLOG SUB-Q SCH ×4 (08:18→21:04)
[2019-02-11] MEDS ORDERED: APRESOLINE IV STA (08:55)
[2019-02-11] MEDS: ASPIRIN PO SCH (10:47)
[2019-02-11] MEDS: COLACE PO SCH ×2 (10:48→21:04)
[2019-02-11] MEDS: ROCEPHIN/NS 1 GM/50 ML 1 GM/50 ML BAG IV SCH (10:48)
[2019-02-11] MEDS: SODIUM CHLORIDE FLUSH SYRINGE 10 ML IV SCH ×2 (10:48→21:04)
[2019-02-11] MEDS: HEPARIN SUB-Q SCH ×2 (10:48→21:03)
--- NOTE | 2019-02-11 13:20 | Progress Note ---
Assessment and Plan Impression: * Acute kidney injury secondary to ATN vs AIN --Renal ultrasound: right kidney is 12.3 cm, left kidney is 12.9 cm in length. There is no hydronephrosis (Jan 2019 - [facility]) --SCr 0.95mg/dL on Jan 29, 2019 --Hx of PUSHPA at [facility] - SCr 2.17mg/dL at discharge (SCr was trending up at [place]) * Pulmonary edema --TTE: LV normal size. Nmll LV wall thickness. LV wall motion nml. EF > 55%. LVEF nml. Nml LV diastolic function (Feb 04 at [facility]). * Urinary tract infection * Acute osteomyelitis of the left foot second toe distal phalanx (MRI Jan 30 2019 @ [facility]) * Type II DM * Hypertension Plan: * Records from [facility] reviewed - PUSHPA was attributed to ATN related to vancomycin per nephrology group following her at that time. SCr was worsening at time of discharge. PUSHPA likely ongoing, continuation from initial insult at previous hospitalzation * Renal prognosis is guarded. Patient w/ sx of early uremia - nausea, loss of appetite. SonPhilipp, at bedside. Advised of likelihood of patient requiring dialysis. * Strict I/O ordered but not documented. Addressed with charge master coordinator, RN and PCT. * Continue IVF for hydration - 0.45% NS 75ml/hour * Continue to hold diuretics * Await serologies, urine eosinophils * Continue Rocephin 1g IV q24h for UTI * Abx per primary team * Continue to hold ACEi * Avoid potential nephrotoxins * Dose medications for renal function Subjective Date of service: 02/11/19 Interval history: SonPhilipp, at bedside. Patient denies SOB. She reports weakness, nausea, decline in appetite. Objective - Vital Signs Vital signs: Vital Signs - 12hr 02/11/19 02/11/19 02/11/19 05:01 08:07 10:00 Temperature 99.4 F 99.2 F Pulse Rate 93 H 95 H 93 H Pulse Rate [ 95 H From Monitor] Respiratory 18 14 14 Rate Blood Pressure 174/74 181/92 O2 Sat by Pulse 97 99 99 Oximetry 02/11/19 10:46 Temperature Pulse Rate Pulse Rate [ From Monitor] Respiratory Rate Blood Pressure 153/77 O2 Sat by Pulse Oximetry - General Appearance General appearance: well-developed, well-nourished EENT: ATNC Respiratory: Present: Clear to Ascultation Cardiology: regular, S1S2 Gastrointestinal: normal, no distended, no masses Neurologic: no focal deficit Psychiatric: cooperative - Lab 02/11/19 04:42 02/11/19 04:42 Most recent lab results Calcium 8.2 mg/dL (8.4-10.2) L 02/11/19 04:42 Medications & Allergies - Medications Allergies/Adverse Reactions: Allergies No Known Allergies Allergy (Verified 11/11/17 20:53) Home Medications: Home Medications Medication Instructions Recorded Confirmed Last Taken Type amLODIPine [Norvasc] 5 mg PO DAILY 03/09/17 02/08/19 02/08/19 History metFORMIN [Glucophage] 500 mg PO BID 03/09/17 02/08/19 02/08/19 History Active Medications: Generic Name Dose Route Start Last Admin Trade Name Freq PRN Reason Stop Dose Admin Acetaminophen 650 mg 02/08/19 22:15 Tylenol PO Q4H PRN Pain MILD(1-3)/Fever >100.5/WHITEHEAD Aspirin 325 mg 02/08/19 22:00 02/11/19 10:47 Aspirin PO 325 mg QDAY ALESSANDRO Administration Dextrose 50 ml 02/08/19 22:15 02/10/19 01:10 D50w (25gm) Syringe IV 50 ml PRN PRN Administration Hypoglycemia Docusate Sodium 100 mg 02/09/19 10:00 02/11/19 10:48 Colace PO Not Given BID ALESSANDRO Heparin Sodium (Porcine) 5,000 unit 02/09/19 10:00 02/11/19 10:48 Heparin SUB-Q 5,000 unit Q12HR ALESSANDRO Administration Hydralazine HCl 10 mg 02/11/19 08:56 Apresoline IV Q4HR PRN sbp above 180 Ceftriaxone Sodium 1 gm in 50 mls @ 100 mls/hr 02/10/19 10:00 02/11/19 10:48 Rocephin/Ns 1 Gm/50 Ml IV 100 mls/hr Q24HR ALESSANDRO Administration Protocol Sodium Chloride 1,000 mls @ 75 mls/hr 02/10/19 10:00 02/11/19 06:06 Nacl 0.45% 1000 Ml IV 42 mls/hr DIRECT ALESSANDRO Administration Insulin Human Lispro 0 unit 02/09/19 07:30 02/11/19 12:29 Humalog SUB-Q Not Given ACHS [facility] Protocol Ondansetron HCl 4 mg 02/08/19 22:15 Zofran IV Q6H PRN Nausea And Vomiting Sodium Chloride 10 ml 02/09/19 10:00 02/11/19 10:48 Sodium Chloride Flush Syringe 10 Ml IV 10 ml BID ALESSANDRO Administration Sodium Chloride 10 ml 02/08/19 22:15 Sodium Chloride Flush Syringe 10 Ml IV PRN PRN LINE FLUSH
--- NOTE | 2019-02-11 13:37 | Progress Note ---
Assessment and Plan The patient's cardiac status is stable. We will defer to nephrology for diuresis if needed. No other recommendations at this time. The patient was evaluated by Dr. Mack, who performed the assessment and developed the plan of care. - Patient Problems (1) Hypoglycemia Current Visit: Yes Status: Acute (2) Hypertension Current Visit: Yes Status: Chronic (3) Acute heart failure with preserved ejection fraction (HFpEF) Current Visit: Yes Status: Acute (4) PUSHPA (acute kidney injury) Current Visit: Yes Status: Acute (5) Respiratory failure with hypoxia Current Visit: Yes Status: Acute (6) Diabetes Current Visit: Yes Status: Chronic Subjective Date of service: 02/11/19 Interval history: Patient is lying in bed in NAD. No complaints. Objective Last Vital Signs Temp 99.2 F 02/11/19 08:07 Pulse 95 H 02/11/19 10:00 Resp 14 02/11/19 10:00 BP 153/77 02/11/19 10:46 Pulse Ox 99 02/11/19 10:00 - Physical Examination General: Appears Well HEENT: Positive: PERRL Neck: Positive: neck supple. Negative: JVD/HJR, Bruit Cardiac: Positive: Reg Rate and Rhythm Lungs: Positive: Normal Exam Neuro: Positive: Grossly Intact Abdomen: Positive: Soft. Negative: Tender Skin: Positive: Clear. Negative: Rash Musculoskeletal: Normal Range of Motion Extremities: Present: +1 Edema (ble), Other (pedal pulses intact) - Labs and Meds CBC 02/11/19 Range/Units 04:42 WBC 10.4 (4.5-11.0) K/mm3 RBC 2.95 L (3.65-5.03) M/mm3 Hgb 9.6 L (10.1-14.3) gm/dl Hct 27.5 L (30.3-42.9) % Plt Count 198 (140-440) K/mm3 Comprehensive Metabolic Panel 02/11/19 Range/Units 04:42 Sodium 138 (137-145) mmol/L Potassium 3.4 L (3.6-5.0) mmol/L Chloride 102.2 (98-107) mmol/L Carbon Dioxide 22 (22-30) mmol/L BUN 32 H (7-17) mg/dL Creatinine 4.8 H (0.7-1.2) mg/dL Glucose 101 H (65-100) mg/dL Calcium 8.2 L (8.4-10.2) mg/dL - Telemetry EKG Rhythm: Sinus Rhythm
[2019-02-11 15:09] LABS: Bacteria,Urine 1+ /HPF (Negative); Bilirubin,Urine NEG (Negative); Blood,Urine SM (Negative); Color,Urine Straw (Yellow); Mucus,Urine FEW /HPF; Protein,Urine <15 mg/dL mg/dL (Negative); Urobilinogen,Urine < 2.0 mg/dL (<2.0)
--- NOTE | 2019-02-11 16:23 | Progress Note ---
Assessment and Plan Assessment and plan: Patient is a 63 -year-old Azeri speaking woman with a history of hypertension, DM, Diabetic foot ulcer status post debridement of left second toe d/t (one week ago at [facility]) who presents to [facility] ED with complaints of generalized weakness, dizziness, chest pain and sob. CT Head negative for acute intracranial abnormalities. Son Philipp at bedside was the Resp Therapist. * V/Q Scan: FINDINGS: Normal wash-in and washout of xenon radiotracer. No mismatch perfusion defect identified. IMPRESSION: Low probability for PTE * CT Head: Findings: BRAIN/INTRACRANIAL STRUCTURES: Unenhanced CT images of the brain demonstrate no evidence of acute intracranial abnormality. Ventricles and sulci are normal in size and shape. There is no evidence of acute ischemic injury, hemorrhage, or mass. An old appearing left basal ganglia lacunar infarct is noted. This was not present at the time the prior exam,. Air-fluid levels are present in the maxillary sinuses bilaterally. The prior exam demonstrated right-sided sinus opacification only. There is prominent mucosal thickening also now present in the right frontal sinus, similar to the prior exam. EXTRACRANIAL STRUCTURES: Unremarkable. Impression: No acute intracranial abnormality. Paranasal sinus disease, including bilateral maxillary sinus air- fluid levels. * 2D ECHO conclusions: Normal cardiac chamber dimensions, LVEF 50-55%, normal RVSF, mild TR, small pericardial effusion that does not appear to be hemodynamically significant, moderate left pleural effusion * pCXR lungs with bilateral interstitial edema and pleural effusions Acute diastolic HF -diastolic heart failure, -BNP elevated at 5451 -IV diuretics on hold due to worsening renal function. -Cardiology consulted Cardiogenic Shock, resolved -Hold anti hypertensive meds -Started on dobutamine drip now off -Continue to monitor BP Acute hypoxic Respiratory Failure, resolved, off o2 -No baseline home oxygen requirements -weaned off supplemental O2 -Respiratory assess and treat per protocol ruled out PE -Elevated D-Dimer -V/Q scan showed Low probability for PTE Acute kidney failure likely due to ATN vasomotor nephropathy from cardiogenic shock, cardiorenal syndrome, poa -additional history garnered from Dr. Medina, basically ARF from ATN/Vancomycin and was worsening when d/c from [facility] and this worsening progression is from initial insult at prior hospitalization at [facility] -Cr on admission 3.1 with GFR 15 -Nephrology consult -Avoid nephro toxic agents -Renal dose all meds Leukocytosis -WBC increased -monitor cbc closely -pt is afebrile, with no UTI as UA specimen contaminated with epithelial cells which was confirmed by urine cultures -BC negative -Rabbler started iv rocephin -Continue to monitor for now; -Consulted ID Necrotic 2nd left toes with sutures in place, done at [facility] -Wound care consult -Consult Mild to Moderate Malnutrition -BMI -Albumin 3.2 -Dietitian consult pending DM2 -POC BG monitoring -HgbA1c 6.1 -SSI Coverage Anemia of chronic disease -Hgb on admission 8.5 -no s/s of active bleeding -Monitor Hgb, transfuse prn DVT PPX -on heparin disposition: continue inpatient care, problem is the documentation of I/Os yesterday made it appear she made no urine as recorded as 0 for urine output which is not accurate. Nonetheless, if Cr worsened tomorrow then HD will be started. d/w Rabbler Dr. Medina History Interval history: Patient was seen and examined. Follow-up on current diagnosis of CHF. No overnight events reported to me. Patient denies any chest pain, shortness breath, nausea/vomiting or severe headaches. Imaging, nursing note, chart, labs and old chart reviewed. Discussed with patient. Hospitalist Physical - Physical exam Narrative exam: Gen: WDWN, NAD, Awake, Alert, Orientated HEENT: NCAT, EOMI, PERRL, OP Clear Neck: supple, no adenopathy, no thyromegaly, no JVD CVS/Heart: RRR, normal S1S2, pulses present bilaterally Chest/Lungs: bibasilar crackles, Symmetrical chest expansion, good air entry bilaterally GI/Abdomen: soft, NTND, good bowel sounds, no guarding or rebound /Bladder: no suprapubic tenderness, no CVA or paraspinal tenderness Extermity/Skin: no c/c/e, no obvious rash MSK: FROM x 4 Neuro: CN 2-12 grossly intact, no new focal deficits Psych: calm - Constitutional Vitals: Temp Pulse Resp BP Pulse Ox 99.2 F 95 H 14 153/77 99 02/11/19 08:07 02/11/19 10:00 02/11/19 10:00 02/11/19 10:46 02/11/19 10:00 General appearance: Present: no acute distress Results - Labs CBC & Chem 7: 02/11/19 04:42 02/11/19 04:42 Labs: Laboratory Last Values WBC 10.4 K/mm3 (4.5-11.0) 02/11/19 04:42 RBC 2.95 M/mm3 (3.65-5.03) L 02/11/19 04:42 Hgb 9.6 gm/dl (10.1-14.3) L 02/11/19 04:42 Hct 27.5 % (30.3-42.9) L 02/11/19 04:42 MCV 93 fl (79-97) 02/11/19 04:42 MCH 33 pg (28-32) H 02/11/19 04:42 MCHC 35 % (30-34) H 02/11/19 04:42 RDW 15.0 % (13.2-15.2) 02/11/19 04:42 Plt Count 198 K/mm3 (140-440) 02/11/19 04:42 Lymph % (Auto) 8.9 % (13.4-35.0) L 02/09/19 04:42 [place] % (Auto) 9.0 % (0.0-7.3) H 02/09/19 04:42 Eos % (Auto) 0.4 % (0.0-4.3) 02/09/19 04:42 Baso % (Auto) 0.3 % (0.0-1.8) 02/09/19 04:42 Lymph # 1.4 K/mm3 (1.2-5.4) 02/09/19 04:42 [place] # 1.5 K/mm3 (0.0-0.8) H 02/09/19 04:42 Eos # 0.1 K/mm3 (0.0-0.4) 02/09/19 04:42 Baso # 0.0 K/mm3 (0.0-0.1) 02/09/19 04:42 Seg Neutrophils % 81.4 % (40.0-70.0) H 02/09/19 04:42 Seg Neutrophils # 13.2 K/mm3 (1.8-7.7) H 02/09/19 04:42 APTT 30.1 Sec. (24.2-36.6) 02/08/19 17:14 890.59 ng/mlDDU (0-234) H 02/08/19 17:14 Sodium 138 mmol/L (137-145) 02/11/19 04:42 Potassium 3.4 mmol/L (3.6-5.0) L 02/11/19 04:42 Chloride 102.2 mmol/L (98-107) 02/11/19 04:42 Carbon Dioxide 22 mmol/L (22-30) 02/11/19 04:42 17 mmol/L 02/11/19 04:42 BUN 32 mg/dL (7-17) H 02/11/19 04:42 4.8 mg/dL (0.7-1.2) H 02/11/19 04:42 Estimated GFR 9 ml/min 02/11/19 04:42 7 % 02/11/19 04:42 Glucose 101 mg/dL (65-100) H 02/11/19 04:42 POC Glucose 107 (70-105) H 02/11/19 12:31 6.1 % (4-6) H 02/08/19 16:25 Lactic Acid 0.80 mmol/L (0.7-2.0) 02/08/19 21:00 Calcium 8.2 mg/dL (8.4-10.2) L 02/11/19 04:42 0.40 mg/dL (0.1-1.2) 02/08/19 16:26 AST 46 units/L (5-40) H 02/08/19 16:26 ALT 43 units/L (7-56) 02/08/19 16:26 123 units/L (35-129) 02/08/19 16:26 0.016 ng/mL (0.00-0.029) 02/09/19 04:42 NT-Pro-B Natriuret Pep 5451 pg/mL (0-900) H 02/08/19 16:26 6.9 g/dL (6.3-8.2) 02/08/19 16:26 3.2 g/dL (3.9-5) L 02/08/19 16:26 0.9 % 02/08/19 16:26 Shelli (Yellow) 02/09/19 03:45 Straw (Yellow) 02/09/19 03:45 Clear (Clear) 02/09/19 03:45 Cloudy (Clear) 02/09/19 03:45 5.0 (5.0-7.0) 02/09/19 03:45 6.0 (5.0-7.0) 02/09/19 03:45 Ur Specific [place] 1.006 (1.003-1.030) 02/09/19 03:45 Ur Specific [place] 1.013 (1.003-1.030) 02/09/19 03:45 30 mg/dl mg/dL (Negative) 02/09/19 03:45 <15 mg/dl mg/dL (Negative) 02/09/19 03:45 Neg mg/dL (Negative) 02/09/19 03:45 Neg mg/dL (Negative) 02/09/19 03:45 Neg mg/dL (Negative) 02/09/19 03:45 Neg mg/dL (Negative) 02/09/19 03:45 Sm (Negative) 02/09/19 03:45 Sm (Negative) 02/09/19 03:45 Neg (Negative) 02/09/19 03:45 Neg (Negative) 02/09/19 03:45 Neg (Negative) 02/09/19 03:45 Neg (Negative) 02/09/19 03:45 < 2.0 mg/dL (<2.0) 02/09/19 03:45 < 2.0 mg/dL (<2.0) 02/09/19 03:45 Ur Leukocyte Esterase Lg (Negative) 02/09/19 03:45 Ur Leukocyte Esterase Neg (Negative) 02/09/19 03:45 1.0 /HPF (0.0-6.0) 02/09/19 03:45 48.0 /HPF (0.0-6.0) H 02/09/19 03:45 2.0 /HPF (0.0-6.0) 02/09/19 03:45 34.0 /HPF (0.0-6.0) 02/09/19 03:45 U Epithel Cells (Auto) 1.0 /HPF (0-13.0) 02/09/19 03:45 U Epithel Cells (Auto) 22.0 /HPF (0-13.0) H 02/09/19 03:45 1+ /HPF (Negative) 02/09/19 03:45 2+ /HPF (Negative) 02/09/19 03:45 Few /HPF 02/09/19 03:45 Few /HPF 02/09/19 03:45 Few /HPF 02/09/19 03:45 Active Medications - Current Medications Current Medications: Generic Name Dose Route Start Last Admin Trade Name Freq PRN Reason Stop Dose Admin Acetaminophen 650 mg 02/08/19 22:15 Tylenol PO Q4H PRN Pain MILD(1-3)/Fever >100.5/WHITEHEAD Aspirin 325 mg 02/08/19 22:00 02/11/19 10:47 Aspirin PO 325 mg QDAY ALESSANDRO Administration Dextrose 50 ml 02/08/19 22:15 02/10/19 01:10 D50w (25gm) Syringe IV 50 ml PRN PRN Administration Hypoglycemia Docusate Sodium 100 mg 02/09/19 10:00 02/11/19 10:48 Colace PO Not Given BID ALESSANDRO Heparin Sodium (Porcine) 5,000 unit 02/09/19 10:00 02/11/19 10:48 Heparin SUB-Q 5,000 unit Q12HR ALESSANDRO Administration Hydralazine HCl 10 mg 02/11/19 08:56 Apresoline IV Q4HR PRN sbp above 180 Ceftriaxone Sodium 1 gm in 50 mls @ 100 mls/hr 02/10/19 10:00 02/11/19 10:48 Rocephin/Ns 1 Gm/50 Ml IV 100 mls/hr Q24HR ALESSANDRO Administration Protocol Sodium Chloride 1,000 mls @ 75 mls/hr 02/10/19 10:00 02/11/19 06:06 Nacl 0.45% 1000 Ml IV 42 mls/hr DIRECT ALESSANDRO Administration Insulin Human Lispro 0 unit 02/09/19 07:30 02/11/19 12:29 Humalog SUB-Q Not Given ACHS ALESSANDRO Protocol Ondansetron HCl 4 mg 02/08/19 22:15 Zofran IV Q6H PRN Nausea And Vomiting Sodium Chloride 10 ml 02/09/19 10:00 02/11/19 10:48 Sodium Chloride Flush Syringe 10 Ml IV 10 ml BID ALESSANDRO Administration Sodium Chloride 10 ml 02/08/19 22:15 Sodium Chloride Flush Syringe 10 Ml IV PRN PRN LINE FLUSH
[2019-02-11] MEDS: APRESOLINE IV PRN (17:58)
[2019-02-12 06:19] LABS: Hemoglobin 8.8 gm/dl (10.1-14.3); Mean Corpuscular HGB Conc 34 % (30-34); Mean Corpuscular Volume 93 fl (79-97); Platelet Count 207 K/mm3 (140-440); Red Cell Distribution Width 15.3 % (13.2-15.2)
[2019-02-12 06:41] LABS: Calcium 8.1 mg/dL (8.4-10.2)
--- NOTE | 2019-02-12 07:49 | Progress Note ---
Assessment and Plan Assessment and plan: Patient is a 63 -year-old Urdu speaking woman with a history of hypertension, DM, Diabetic foot ulcer status post debridement of left second toe d/t (one week ago at [facility]) who presents to [facility] ED with complaints of generalized weakness, dizziness, chest pain and sob. CT Head negative for acute intracranial abnormalities. * V/Q Scan: FINDINGS: Normal wash-in and washout of xenon radiotracer. No mismatch perfusion defect identified. IMPRESSION: Low probability for PTE * CT Head: Findings: BRAIN/INTRACRANIAL STRUCTURES: Unenhanced CT images of the brain demonstrate no evidence of acute intracranial abnormality. Ventricles and sulci are normal in size and shape. There is no evidence of acute ischemic injury, hemorrhage, or mass. An old appearing left basal ganglia lacunar infarct is noted. This was not present at the time the prior exam,. Air-fluid levels are present in the maxillary sinuses bilaterally. The prior exam demonstrated right-sided sinus opacification only. There is prominent mucosal thickening also now present in the right frontal sinus, similar to the prior exam. EXTRACRANIAL STRUCTURES: Unremarkable. Impression: No acute intracranial abnormality. Paranasal sinus disease, including bilateral maxillary sinus air- fluid levels. * 2D ECHO conclusions: Normal cardiac chamber dimensions, LVEF 50-55%, normal RVSF, mild TR, small pericardial effusion that does not appear to be hemodynamically significant, moderate left pleural effusion * pCXR lungs with bilateral interstitial edema and pleural effusions Acute diastolic HF -diastolic heart failure, -BNP elevated at 5451 -IV diuretics on hold due to worsening renal function. -Cardiology consulted Cardiogenic Shock, resolved -Hold anti hypertensive meds -Started on dobutamine drip now off -Continue to monitor BP Acute hypoxic Respiratory Failure, resolved, off o2 -No baseline home oxygen requirements -weaned off supplemental O2 -Respiratory assess and treat per protocol ruled out PE -Elevated D-Dimer -V/Q scan showed Low probability for PTE Acute kidney failure likely due to ATN vasomotor nephropathy from cardiogenic shock, cardiorenal syndrome, poa -additional history garnered from Dr. Medina, basically ARF from ATN/Vancomycin and was worsening when d/c from [facility] and this worsening progression is from initial insult at prior hospitalization at [facility] -Cr on admission 3.1 with GFR 15 -Nephrology consult -Avoid nephro toxic agents -Renal dose all meds Leukocytosis -WBC increased -monitor cbc closely -pt is afebrile, with no UTI as UA specimen contaminated with epithelial cells which was confirmed by urine cultures -BC negative -Field Ring Assembler started iv rocephin -Continue to monitor for now; -Consulted ID Necrotic 2nd left toes with sutures in place, done at [facility] -Wound care consult -Consult Mild to Moderate Malnutrition -BMI -Albumin 3.2 -Dietitian consult pending DM2 -POC BG monitoring -HgbA1c 6.1 -SSI Coverage Anemia of chronic disease -Hgb on admission 8.5 -no s/s of active bleeding -Monitor Hgb, transfuse prn Suspect DM Retinopathy, patient is basically blind for about 1 month now. When I handed the patient the [employer] Principal line phone she couldn't see it and proceeded to tell me she has been having blurred vision for about 1 month now. -Ophthal outpatient referral upon discharge (none here) DVT PPX -on heparin disposition: continue inpatient care, problem is the documentation of I/Os y esterday made it appear she made no urine as recorded as 0 for urine output which is not accurate. Nonetheless, if Cr worsened tomorrow then HD will be started. d/w Field Ring Assembler Dr. Medina===>today cr is worse, make npo, consult Vascular to evaluate for HD line placement 02/12/19 Vas Cath placed, HD for tomorrow if Cr worsen per Dr. Otis Ceron, Field Ring Assembler History Interval history: Patient was seen and examined. Follow-up on current diagnosis of CHF. No overnight events reported to me. Patient denies any chest pain, shortness breath, nausea/vomiting or severe headaches. Imaging, nursing note, chart, labs and old chart reviewed. Discussed with patient via kuwaiti Language Line Hospitalist Physical - Physical exam Narrative exam: Gen: WDWN, NAD, Awake, Alert, Orientated HEENT: NCAT, EOMI, PERRL, OP Clear Neck: supple, no adenopathy, no thyromegaly, no JVD CVS/Heart: RRR, normal S1S2, pulses present bilaterally Chest/Lungs: bibasilar crackles, Symmetrical chest expansion, good air entry bilaterally GI/Abdomen: soft, NTND, good bowel sounds, no guarding or rebound /Bladder: no suprapubic tenderness, no CVA or paraspinal tenderness Extermity/Skin: no c/c/e, no obvious rash MSK: FROM x 4 Neuro: CN 2-12 grossly intact except vision, no new focal deficits Psych: calm - Constitutional Vitals: Temp Pulse Resp BP Pulse Ox 98.2 F 95 H 18 166/84 98 02/12/19 04:38 02/12/19 04:38 02/12/19 04:38 02/12/19 04:38 02/12/19 04:38 General appearance: Present: no acute distress Results - Labs CBC & Chem 7: 02/12/19 05:38 02/12/19 05:38 Labs: Laboratory Last Values WBC 10.0 K/mm3 (4.5-11.0) 02/12/19 05:38 RBC 2.80 M/mm3 (3.65-5.03) L 02/12/19 05:38 Hgb 8.8 gm/dl (10.1-14.3) L 02/12/19 05:38 Hct 26.0 % (30.3-42.9) L 02/12/19 05:38 MCV 93 fl (79-97) 02/12/19 05:38 MCH 32 pg (28-32) 02/12/19 05:38 MCHC 34 % (30-34) 02/12/19 05:38 RDW 15.3 % (13.2-15.2) H 02/12/19 05:38 Plt Count 207 K/mm3 (140-440) 02/12/19 05:38 Lymph % (Auto) 8.9 % (13.4-35.0) L 02/09/19 04:42 Chambers % (Auto) 9.0 % (0.0-7.3) H 02/09/19 04:42 Eos % (Auto) 0.4 % (0.0-4.3) 02/09/19 04:42 Baso % (Auto) 0.3 % (0.0-1.8) 02/09/19 04:42 Lymph # 1.4 K/mm3 (1.2-5.4) 02/09/19 04:42 Chambers # 1.5 K/mm3 (0.0-0.8) H 02/09/19 04:42 Eos # 0.1 K/mm3 (0.0-0.4) 02/09/19 04:42 Baso # 0.0 K/mm3 (0.0-0.1) 02/09/19 04:42 Seg Neutrophils % 81.4 % (40.0-70.0) H 02/09/19 04:42 Seg Neutrophils # 13.2 K/mm3 (1.8-7.7) H 02/09/19 04:42 APTT 30.1 Sec. (24.2-36.6) 02/08/19 17:14 890.59 ng/mlDDU (0-234) H 02/08/19 17:14 Sodium 135 mmol/L (137-145) L 02/12/19 05:38 Potassium 3.8 mmol/L (3.6-5.0) 02/12/19 05:38 Chloride 99.2 mmol/L (98-107) 02/12/19 05:38 Carbon Dioxide 21 mmol/L (22-30) L 02/12/19 05:38 19 mmol/L 02/12/19 05:38 BUN 34 mg/dL (7-17) H 02/12/19 05:38 5.0 mg/dL (0.7-1.2) H 02/12/19 05:38 Estimated GFR 9 ml/min 02/12/19 05:38 7 % 02/12/19 05:38 Glucose 89 mg/dL (65-100) 02/12/19 05:38 POC Glucose 130 (70-105) H 02/11/19 22:40 6.1 % (4-6) H 02/08/19 16:25 Lactic Acid 0.80 mmol/L (0.7-2.0) 02/08/19 21:00 Calcium 8.1 mg/dL (8.4-10.2) L 02/12/19 05:38 0.40 mg/dL (0.1-1.2) 02/08/19 16:26 AST 46 units/L (5-40) H 02/08/19 16:26 ALT 43 units/L (7-56) 02/08/19 16:26 123 units/L (35-129) 02/08/19 16:26 0.016 ng/mL (0.00-0.029) 02/09/19 04:42 NT-Pro-B Natriuret Pep 5451 pg/mL (0-900) H 02/08/19 16:26 6.9 g/dL (6.3-8.2) 02/08/19 16:26 3.2 g/dL (3.9-5) L 02/08/19 16:26 0.9 % 02/08/19 16:26 Shelli (Yellow) 02/09/19 03:45 Straw (Yellow) 02/09/19 03:45 Clear (Clear) 02/09/19 03:45 Cloudy (Clear) 02/09/19 03:45 5.0 (5.0-7.0) 02/09/19 03:45 6.0 (5.0-7.0) 02/09/19 03:45 Ur Specific [place] 1.006 (1.003-1.030) 02/09/19 03:45 Ur Specific [place] 1.013 (1.003-1.030) 02/09/19 03:45 30 mg/dl mg/dL (Negative) 02/09/19 03:45 <15 mg/dl mg/dL (Negative) 02/09/19 03:45 Neg mg/dL (Negative) 02/09/19 03:45 Neg mg/dL (Negative) 02/09/19 03:45 Neg mg/dL (Negative) 02/09/19 03:45 Neg mg/dL (Negative) 02/09/19 03:45 Sm (Negative) 02/09/19 03:45 Sm (Negative) 02/09/19 03:45 Neg (Negative) 02/09/19 03:45 Neg (Negative) 02/09/19 03:45 Neg (Negative) 02/09/19 03:45 Neg (Negative) 02/09/19 03:45 < 2.0 mg/dL (<2.0) 02/09/19 03:45 < 2.0 mg/dL (<2.0) 02/09/19 03:45 Ur Leukocyte Esterase Lg (Negative) 02/09/19 03:45 Ur Leukocyte Esterase Neg (Negative) 02/09/19 03:45 1.0 /HPF (0.0-6.0) 02/09/19 03:45 48.0 /HPF (0.0-6.0) H 02/09/19 03:45 2.0 /HPF (0.0-6.0) 02/09/19 03:45 34.0 /HPF (0.0-6.0) 02/09/19 03:45 U Epithel Cells (Auto) 1.0 /HPF (0-13.0) 02/09/19 03:45 U Epithel Cells (Auto) 22.0 /HPF (0-13.0) H 02/09/19 03:45 1+ /HPF (Negative) 02/09/19 03:45 2+ /HPF (Negative) 02/09/19 03:45 Few /HPF 02/09/19 03:45 Few /HPF 02/09/19 03:45 Few /HPF 02/09/19 03:45 None seen (None Seen) 02/10/19 Unknown Active Medications - Current Medications Current Medications: Generic Name Dose Route Start Last Admin Trade Name Freq PRN Reason Stop Dose Admin Acetaminophen 650 mg 02/08/19 22:15 Tylenol PO Q4H PRN Pain MILD(1-3)/Fever >100.5/WHITEHEAD Aspirin 325 mg 02/08/19 22:00 02/11/19 10:47 Aspirin PO 325 mg QDAY ALESSANDRO Administration Dextrose 50 ml 02/08/19 22:15 02/10/19 01:10 D50w (25gm) Syringe IV 50 ml PRN PRN Administration Hypoglycemia Docusate Sodium 100 mg 02/09/19 10:00 02/11/19 21:04 Colace PO Not Given BID ALESSANDRO Heparin Sodium (Porcine) 5,000 unit 02/09/19 10:00 02/11/19 21:03 Heparin SUB-Q 5,000 unit Q12HR ALESSANDRO Administration Hydralazine HCl 10 mg 02/11/19 08:56 02/11/19 17:58 Apresoline IV 10 mg Q4HR PRN Administration sbp above 180 Sodium Chloride 1,000 mls @ 75 mls/hr 02/10/19 10:00 02/11/19 06:06 Nacl 0.45% 1000 Ml IV 42 mls/hr DIRECT ALESSANDRO Administration Insulin Human Lispro 0 unit 02/09/19 07:30 02/11/19 21:04 Humalog SUB-Q Not Given ACHS [facility] Protocol Ondansetron HCl 4 mg 02/08/19 22:15 Zofran IV Q6H PRN Nausea And Vomiting Sodium Chloride 10 ml 02/09/19 10:00 02/11/19 21:04 Sodium Chloride Flush Syringe 10 Ml IV 10 ml BID ALESSANDRO Administration Sodium Chloride 10 ml 02/08/19 22:15 Sodium Chloride Flush Syringe 10 Ml IV PRN PRN LINE FLUSH
[2019-02-12] MEDS: HumaLOG SUB-Q SCH ×4 (08:05→22:05)
[2019-02-12] MEDS: TYLENOL PO PRN ×2 (08:15→19:33)
--- NOTE | 2019-02-12 08:37 | Progress Note ---
Assessment and Plan Impression: * Acute kidney injury secondary to ATN vs AIN --Renal ultrasound: right kidney is 12.3 cm, left kidney is 12.9 cm in length. There is no hydronephrosis (Jan 2019 - [facility]) --SCr 0.95mg/dL on Jan 29, 2019 --Hx of PUSHPA at [facility] - SCr 2.17mg/dL at discharge (SCr was trending up at al) * Pulmonary edema --TTE: LV normal size. Nmll LV wall thickness. LV wall motion nml. EF > 55%. LVEF nml. Nml LV diastolic function (Feb 04 at [facility]). * Urinary tract infection * Acute osteomyelitis of the left foot second toe distal phalanx (MRI Jan 30 2019 @ [facility]) * Type II DM * Hypertension Plan: * Records from [facility] reviewed - PUSHPA was attributed to ATN related to vancomycin per nephrology group following her at that time. SCr was worsening at time of discharge. PUSHPA likely ongoing, continuation from initial insult at previous hospitalization in setting of acute infection * Renal prognosis is guarded. Patient w/ sx of early uremia - nausea, loss of appetite. Advised of likelihood of patient requiring dialysis. Patient currently NPO; agree with plan to place vas-cath if renal replacement therapy is needed in coming days. No acute indication today with reasonable urine output. * continue to follow Strict I/O . Addressed with discharge coordinator, RN and PCT. * Continue IVF for hydration - 0.45% NS 75ml/hour * Continue to hold diuretics * Await serologies, urine eosinophils * Abx per primary team * Continue to hold ACEi * Avoid potential nephrotoxins * Dose medications for renal function Subjective Date of service: 02/12/19 Principal diagnosis: acute kidney injury Interval history: Creatinine continues to rise. Patient notes ongoing poor appetite, nausea. No issues with dyspnea, chest pain Objective - Exam Narrative Exam: General appearance: well-developed, well-nourished EENT: atraumatic Respiratory: Clear to Auscultation bilaterally, on nasal cannula 3L Cardiology: regular, S1S2, no lower extremity edema Gastrointestinal: normal, no distended, no masses Neurologic: no focal deficit Psychiatric: cooperative - Vital Signs Vital signs: Vital Signs - 12hr 02/12/19 02/12/19 02/12/19 00:18 04:38 08:03 Temperature 98.2 F 98.2 F 97.5 F L Pulse Rate 102 H 95 H 96 H Respiratory 18 18 18 Rate Blood Pressure 157/61 166/84 158/78 O2 Sat by Pulse 99 98 98 Oximetry - Lab 02/12/19 05:38 02/12/19 05:38 Most recent lab results Calcium 8.1 mg/dL (8.4-10.2) L 02/12/19 05:38 Medications & Allergies - Medications Allergies/Adverse Reactions: Allergies No Known Allergies Allergy (Verified 11/11/17 20:53) Home Medications: Home Medications Medication Instructions Recorded Confirmed Last Taken Type amLODIPine [Norvasc] 5 mg PO DAILY 03/09/17 02/08/19 02/08/19 History metFORMIN [Glucophage] 500 mg PO BID 03/09/17 02/08/19 02/08/19 History Active Medications: Generic Name Dose Route Start Last Admin Trade Name Freq PRN Reason Stop Dose Admin Acetaminophen 650 mg 02/08/19 22:15 02/12/19 08:15 Tylenol PO 650 mg Q4H PRN Administration Pain MILD(1-3)/Fever >100.5/WHITEHEAD Aspirin 325 mg 02/08/19 22:00 02/11/19 10:47 Aspirin PO 325 mg QDAY ALESSANDRO Administration Dextrose 50 ml 02/08/19 22:15 02/10/19 01:10 D50w (25gm) Syringe IV 50 ml PRN PRN Administration Hypoglycemia Docusate Sodium 100 mg 02/09/19 10:00 02/11/19 21:04 Colace PO Not Given BID ALESSANDRO Heparin Sodium (Porcine) 5,000 unit 02/09/19 10:00 02/11/19 21:03 Heparin SUB-Q 5,000 unit Q12HR ALESSANDRO Administration Hydralazine HCl 10 mg 02/11/19 08:56 02/11/19 17:58 Apresoline IV 10 mg Q4HR PRN Administration sbp above 180 Sodium Chloride 1,000 mls @ 75 mls/hr 02/10/19 10:00 02/11/19 06:06 Nacl 0.45% 1000 Ml IV 42 mls/hr DIRECT ALESSANDRO Administration Insulin Human Lispro 0 unit 02/09/19 07:30 02/12/19 08:05 Humalog SUB-Q Not Given ACHS [facility] Protocol Ondansetron HCl 4 mg 02/08/19 22:15 Zofran IV Q6H PRN Nausea And Vomiting Sodium Chloride 10 ml 02/09/19 10:00 02/11/19 21:04 Sodium Chloride Flush Syringe 10 Ml IV 10 ml BID ALESSANDRO Administration Sodium Chloride 10 ml 02/08/19 22:15 Sodium Chloride Flush Syringe 10 Ml IV PRN PRN LINE FLUSH
[2019-02-12] MEDS: ASPIRIN PO SCH (09:53)
[2019-02-12] MEDS: HEPARIN SUB-Q SCH ×2 (09:53→22:11)
[2019-02-12] MEDS: SODIUM CHLORIDE FLUSH SYRINGE 10 ML IV SCH ×2 (09:54→22:12)
[2019-02-12] MEDS: COLACE PO SCH ×2 (09:55→21:36)
--- NOTE | 2019-02-12 11:35 | Progress Note ---
Assessment and Plan (1) Hypoglycemia Current Visit: Yes Status: Acute (2) Hypertension Current Visit: Yes Status: Chronic (3) Acute heart failure with preserved ejection fraction (HFpEF) Current Visit: Yes Status: Acute (4) PUSHPA (acute kidney injury) Current Visit: Yes Status: Acute (5) Respiratory failure with hypoxia Current Visit: Yes Status: Acute (6) Diabetes Current Visit: Yes Status: Chronic Subjective Principal diagnosis: acute kidney injury Interval history: Patient's [id number] is in the room. Denies any chest pain or shortness of breath. She has a bandage over left foot. Objective Vital Signs Temp Pulse Resp BP BP Pulse Ox 02/12/19 08:03 97.5 F L 96 H 18 158/78 98 02/12/19 04:38 98.2 F 95 H 18 166/84 98 02/12/19 00:18 98.2 F 102 H 18 157/61 99 02/11/19 20:05 20 99 02/11/19 19:36 94 H 02/11/19 19:14 98.4 F 97 H 18 162/73 98 02/11/19 18:42 161/78 02/11/19 17:58 89 196/97 02/11/19 17:20 99.0 F 90 16 188/87 100 - Physical Examination General: Appears Well HEENT: Positive: PERRL Neck: Positive: neck supple. Negative: JVD/HJR, Bruit Neuro: Positive: Grossly Intact Abdomen: Positive: Soft. Negative: Tender Skin: Positive: Clear. Negative: Rash Musculoskeletal: Normal Range of Motion Extremities: Present: +1 Edema (ble), Other (pedal pulses intact) - Labs and Meds CBC 02/12/19 Range/Units 05:38 WBC 10.0 (4.5-11.0) K/mm3 RBC 2.80 L (3.65-5.03) M/mm3 Hgb 8.8 L (10.1-14.3) gm/dl Hct 26.0 L (30.3-42.9) % Plt Count 207 (140-440) K/mm3 Comprehensive Metabolic Panel 02/12/19 Range/Units 05:38 Sodium 135 L (137-145) mmol/L Potassium 3.8 (3.6-5.0) mmol/L Chloride 99.2 (98-107) mmol/L Carbon Dioxide 21 L (22-30) mmol/L BUN 34 H (7-17) mg/dL Creatinine 5.0 H (0.7-1.2) mg/dL Glucose 89 (65-100) mg/dL Calcium 8.1 L (8.4-10.2) mg/dL
[2019-02-12] MEDS ORDERED: HEPARIN/NS 5000 UNIT/500ML(CATH LAB) 500 ML IR ONE (12:27)
[2019-02-12] MEDS ORDERED: XYLOCAINE 1%/ EPI 1:100,000 INFILTRATI ONE (12:28)
[2019-02-12] MEDS ORDERED: NACL 0.9% 250ML 250 ML ONE (12:28)
[2019-02-12] MEDS ORDERED: VERSED ONE (12:54)
[2019-02-12] MEDS ORDERED: SUBLIMAZE ONE (12:54)
[2019-02-12] MEDS: HEPARIN 10,000 UNITS/10 ML ONE ×2 (13:05→13:06)
--- NOTE | 2019-02-12 13:39 | Consultation ---
History of Present Illness - Reason for Consult Consult date: 02/12/19 Dialysis - History of Present Illness Mrs. Gómez Kennedy is a 63yo with DM and osteomyelitis s/p recent hospitalization at [facility] who presented to the ED with acute onset of weakness. Per son, patient was unable to stand/ambulate due to weakness. She denies chest pain, SOB, VORA. She denies N/V. Appetite has been good per son. She has no prior hx of kidney disease. She denies dysuria, hematuria, NSAID use. * Records from [facility] reviewed - PUSHPA was attributed to ATN related to vancomycin per nephrology group following her at that time. SCr was worsening at time of discharge. PUSHPA likely ongoing, continuation from initial insult at previous hospitalization in setting of acute infection * Renal prognosis is guarded. Patient w/ sx of early uremia - nausea, loss of appetite. Advised of likelihood of patient requiring dialysis. Patient currently NPO; agree with plan to place vas-cath if renal replacement therapy is needed in coming days. No acute indication today with reasonable urine output. Vascular consulted for vascath. Past History Past Medical History: diabetes, hypertension Past Surgical History: Other (Mass removed from under right arm. C- Section, left toe surgery) Social history: , lives with family. denies: smoking, alcohol abuse Family history: no significant family history Medications and Allergies Allergies Allergy/AdvReac Type Severity Reaction Status Date / Time No Known Allergies Allergy Verified 11/11/17 20:53 Home Medications Medication Instructions Recorded Confirmed Last Taken Type amLODIPine [Norvasc] 5 mg PO DAILY 03/09/17 02/08/19 02/08/19 History metFORMIN [Glucophage] 500 mg PO BID 03/09/17 02/08/19 02/08/19 History Active Meds: Active Medications Acetaminophen (Tylenol) 650 mg PO Q4H PRN PRN Reason: Pain MILD(1-3)/Fever >100.5/WHITEHEAD Last Admin: 02/12/19 08:15 Dose: 650 mg Documented by: Aspirin (Aspirin) 325 mg PO QDAY ALESSANDRO Last Admin: 02/12/19 09:53 Dose: 325 mg Documented by: Dextrose (D50w (25gm) Syringe) 50 ml IV PRN PRN PRN Reason: Hypoglycemia Last Admin: 02/10/19 01:10 Dose: 50 ml Documented by: Docusate Sodium (Colace) 100 mg PO BID [facility] Last Admin: 02/12/19 09:55 Dose: Not Given Documented by: Heparin Sodium (Porcine) (Heparin) 5,000 unit SUB-Q Q12HR [facility] Last Admin: 02/12/19 09:53 Dose: 5,000 unit Documented by: Hydralazine HCl (Apresoline) 10 mg IV Q4HR PRN PRN Reason: sbp above 180 Last Admin: 02/11/19 17:58 Dose: 10 mg Documented by: Sodium Chloride (Nacl 0.45% 1000 Ml) 1,000 mls @ 75 mls/hr IV DIRECT [facility] Last Admin: 02/11/19 06:06 Dose: 42 mls/hr Documented by: Insulin Human Lispro (Humalog) 0 unit SUB-Q ACHS [facility]; Protocol Last Admin: 02/12/19 11:55 Dose: Not Given Documented by: Ondansetron HCl (Zofran) 4 mg IV Q6H PRN PRN Reason: Nausea And Vomiting Sodium Chloride (Sodium Chloride Flush Syringe 10 Ml) 10 ml IV BID [facility] Last Admin: 02/12/19 09:54 Dose: 10 ml Documented by: Sodium Chloride (Sodium Chloride Flush Syringe 10 Ml) 10 ml IV PRN PRN PRN Reason: LINE FLUSH Review of Systems All systems: negative (see HPI) Exam - Constitutional Vitals: Temp Pulse Resp BP Pulse Ox 97.0 F L 95 H 16 187/92 100 02/12/19 11:35 02/12/19 11:35 02/12/19 11:35 02/12/19 11:35 02/12/19 11:35 General appearance: Present: no acute distress - EENT Eyes: Present: EOM intact ENT: hearing intact - Respiratory Respiratory effort: normal - Psychiatric Psychiatric: appropriate mood/affect, cooperative Results - Labs CBC & Chem 7: 02/12/19 05:38 02/12/19 05:38 Labs: Abnormal lab results 02/11/19 02/11/19 02/12/19 Range/Units 16:09 22:40 05:38 RBC (3.65-5.03) M/mm3 Hgb (10.1-14.3) gm/dl Hct (30.3-42.9) % RDW (13.2-15.2) % Sodium 135 L (137-145) mmol/L Carbon Dioxide 21 L (22-30) mmol/L BUN 34 H (7-17) mg/dL Creatinine 5.0 H (0.7-1.2) mg/dL POC Glucose 107 H 130 H (70-105) Calcium 8.1 L (8.4-10.2) mg/dL 02/12/19 02/12/19 Range/Units 05:38 11:42 RBC 2.80 L (3.65-5.03) M/mm3 Hgb 8.8 L (10.1-14.3) gm/dl Hct 26.0 L (30.3-42.9) % RDW 15.3 H (13.2-15.2) % Sodium (137-145) mmol/L Carbon Dioxide (22-30) mmol/L BUN (7-17) mg/dL Creatinine (0.7-1.2) mg/dL POC Glucose 67 L (70-105) Calcium (8.4-10.2) mg/dL Assessment and Plan 63-year-old female with acute kidney injury with need for hemodialysis. Vascular consulted. Discussed with Dr. Ceron and plan is for Vas-Cath placement since expectation for dialysis is less than 7 days. Risks, benefits, and alternatives discussed with the patient.
--- NOTE | 2019-02-12 13:44 | Operative Report ---
Operative Report Operative Report: EXAM: 1. Ultrasound-guided puncture of the right internal jugular vein 2. Fluoroscopic-guided placement of a right internal jugular nontunneled noncuffed hemodialysis catheter. DATE: 02/12/19 INDICATION: Acute renal injury requiring hemodialysis. MEDICATIONS: Please see nursing report for full details. DEVICES: 15 cm dual lumen hemodialysis catheter STARTER CUP POWDER MIXER: MIKE COLEMAN MD CONTRAST: None PROCEDURE: The risks, benefits, and alternatives were discussed and informed consent was obtained. The patient was transported to the angiography suite in satisfactory/stable condition and was transported onto the angiography table. The patient's right internal jugular vein was assessed with ultrasound and determined to be patent prior to procedure. The patient was prepped and draped in a sterile fashion. The puncture site was anesthetized. The right internal jugular vein was patent on ultrasound. Under sonographic guidance, the right internal jugular vein was punctured with a 21-gauge micropuncture needle and a 0.018 inch wire was advanced through the needle. Needle was exchanged for transitional dilator. The inner dilator and wire was removed and a 0.035 inch wire was advanced through the transitional dilator into the inferior vena cava. Over the 0.035 inch wire, serial dilatation was performed. The catheter was advanced over the wire and positioned centrally under fluoroscopic guidance. 2-0 Ethilon suture was used to secure the catheter. The catheter was charged with heparin 1000 units per mL. Sterile dressing and Biopatch were provided.. The patient was transferred from the angiography suite back to the floor in stable condition. FINDINGS: 1. Excellent flow was obtained through the dialysis catheter with 20 mL syringes. 2. The catheter tip is in the right atrium. IMPRESSION: 1. Successful sonographically and fluoroscopically guided placement of a right internal jugular nontunneled noncuffed hemodialysis catheter.
[2019-02-12] MEDS: NACL 0.45% 1000 ML 1,000 ML IV SCH (13:53)
[2019-02-12] MEDS: APRESOLINE IV PRN (22:18)
[2019-02-13 05:46] LABS: Hemoglobin 8.7 gm/dl (10.1-14.3); Mean Corpuscular HGB Conc 34 % (30-34); Mean Corpuscular Volume 93 fl (79-97); Platelet Count 209 K/mm3 (140-440); Red Blood Count 2.81 M/mm3 (3.65-5.03); Red Cell Distribution Width 14.9 % (13.2-15.2)
[2019-02-13 05:54] LABS: Calcium 8.5 mg/dL (8.4-10.2)
[2019-02-13] MEDS: HumaLOG SUB-Q SCH ×4 (09:05→21:40)
[2019-02-13] MEDS: HEPARIN SUB-Q SCH ×2 (09:08→21:18)
[2019-02-13] MEDS: ASPIRIN PO SCH (09:08)
[2019-02-13] MEDS: COLACE PO SCH ×4 (09:08→21:31)
[2019-02-13] MEDS: SODIUM CHLORIDE FLUSH SYRINGE 10 ML IV SCH ×2 (09:17→21:18)
--- NOTE | 2019-02-13 09:17 | Progress Note ---
Assessment and Plan Impression: * Acute kidney injury secondary to ATN vs AIN (less likely AIN given lack of peripheral eosinophilia) --Renal ultrasound: right kidney is 12.3 cm, left kidney is 12.9 cm in length. There is no hydronephrosis (Jan 2019 - [facility]) --SCr 0.95mg/dL on Jan 29, 2019 --Hx of PUSHPA at [facility] - SCr 2.17mg/dL at discharge (SCr was trending up at [place]) * Pulmonary edema --TTE: LV normal size. Nmll LV wall thickness. LV wall motion nml. EF > 55%. LVEF nml. Nml LV diastolic function (Feb 04 at [facility]). * Acute osteomyelitis of the left foot second toe distal phalanx (MRI Jan 30 2019 @ [facility]) * Type II DM * Hypertension Plan: * Records from [facility] reviewed - PUSHPA was attributed to ATN related to vancomycin per nephrology group following her at that time. SCr was worsening at time of discharge. PUSHPA likely ongoing, continuation from initial insult at previous hospitalization with presumed tubular injury * Renal prognosis is guarded. Hopeful for tubular recovery in coming days and ultimate improvement of PUSHPA. Patient w/ possible sx of early uremia - nausea, loss of appetite (although eating full meals per nursing). Advised of likelihood of patient requiring dialysis (via intrepreter) in coming days; patient with vas-cath when needed. No indication for acute renal replacement therapy today, but if she continues to have nausea and limited urine output (<500ml) in conjunction with increased oxygen requirements, will plan for short HD session in next 24-48 hours * Have ordered repeat urinalysis with microscopy to assess for granular casts * continue to follow Strict I/O. Addressed with charge aide, RN and PCT. * Continue IVF for hydration - 0.45% NS 75ml/hour * Continue to hold diuretics * Abx per primary team * Continue to hold ACEi * Avoid potential nephrotoxins * Dose medications for renal function Subjective Date of service: 02/13/19 Principal diagnosis: acute kidney injury Interval history: no acute events overnight. patient without any new complaints- notes normal breathing, no chest pain, no lower extremity edema. Objective - Exam Narrative Exam: General appearance: well-developed, well-nourished EENT: atraumatic Respiratory: Clear to Auscultation bilaterally, on nasal cannula 3L Cardiology: regular, S1S2, no lower extremity edema Gastrointestinal: normal, no distended, no masses Neurologic: no focal deficit Psychiatric: cooperative - Vital Signs Vital signs: Vital Signs - 12hr 02/12/19 02/12/19 02/12/19 22:00 23:36 23:37 Temperature 98.6 F Pulse Rate 76 92 H Respiratory 20 Rate Blood Pressure 127/73 O2 Sat by Pulse 99 Oximetry 02/13/19 02/13/19 04:39 04:40 Temperature 98.5 F Pulse Rate 86 Respiratory 18 Rate Blood Pressure 143/73 O2 Sat by Pulse 98 Oximetry - Lab 02/13/19 04:33 02/13/19 04:33 Most recent lab results Calcium 8.5 mg/dL (8.4-10.2) 02/13/19 04:33 Medications & Allergies - Medications Allergies/Adverse Reactions: Allergies No Known Allergies Allergy (Verified 11/11/17 20:53) Home Medications: Home Medications Medication Instructions Recorded Confirmed Last Taken Type amLODIPine [Norvasc] 5 mg PO DAILY 03/09/17 02/08/19 02/08/19 History metFORMIN [Glucophage] 500 mg PO BID 03/09/17 02/08/19 02/08/19 History Active Medications: Generic Name Dose Route Start Last Admin Trade Name Freq PRN Reason Stop Dose Admin Acetaminophen 650 mg 02/08/19 22:15 02/12/19 19:33 Tylenol PO 650 mg Q4H PRN Administration Pain MILD(1-3)/Fever >100.5/WHITEHEAD Aspirin 325 mg 02/08/19 22:00 02/13/19 09:08 Aspirin PO 325 mg QDAY ALESSANDRO Administration Dextrose 50 ml 02/08/19 22:15 02/10/19 01:10 D50w (25gm) Syringe IV 50 ml PRN PRN Administration Hypoglycemia Docusate Sodium 100 mg 02/09/19 10:00 02/12/19 21:36 Colace PO Not Given BID ALESSANDRO Heparin Sodium (Porcine) 5,000 unit 02/09/19 10:00 02/13/19 09:08 Heparin SUB-Q 5,000 unit Q12HR ALESSANDRO Administration Hydralazine HCl 10 mg 02/11/19 08:56 02/12/19 22:18 Apresoline IV 10 mg Q4HR PRN Administration sbp above 180 Sodium Chloride 1,000 mls @ 75 mls/hr 02/10/19 10:00 02/12/19 13:53 Nacl 0.45% 1000 Ml IV 42 mls/hr DIRECT ALESSANDRO Administration Insulin Human Lispro 0 unit 02/09/19 07:30 02/13/19 09:05 Humalog SUB-Q Not Given ACHS ALESSANDRO Protocol Ondansetron HCl 4 mg 02/08/19 22:15 Zofran IV Q6H PRN Nausea And Vomiting Sodium Chloride 10 ml 02/09/19 10:00 02/12/19 22:12 Sodium Chloride Flush Syringe 10 Ml IV 10 ml BID ALESSANDRO Administration Sodium Chloride 10 ml 02/08/19 22:15 Sodium Chloride Flush Syringe 10 Ml IV PRN PRN LINE FLUSH
--- NOTE | 2019-02-13 10:39 | Consultation ---
History of Present Illness Consult date: 02/13/19 Chief complaint: Gangrene of distal left 2nd toe - History of present illness History of present illness: 63 yo diabetic female with gangrene of the left 2nd toe. Past History Past Medical History: diabetes, hypertension Past Surgical History: Other (Mass removed from under right arm. C- Section, left toe surgery) Social history: , lives with family. denies: smoking, alcohol abuse Family history: no significant family history Medications and Allergies Allergies Allergy/AdvReac Type Severity Reaction Status Date / Time No Known Allergies Allergy Verified 11/11/17 20:53 Home Medications Medication Instructions Recorded Confirmed Last Taken Type amLODIPine [Norvasc] 5 mg PO DAILY 03/09/17 02/08/19 02/08/19 History metFORMIN [Glucophage] 500 mg PO BID 03/09/17 02/08/19 02/08/19 History Active Meds: Active Medications Acetaminophen (Tylenol) 650 mg PO Q4H PRN PRN Reason: Pain MILD(1-3)/Fever >100.5/WHITEHEAD Last Admin: 02/12/19 19:33 Dose: 650 mg Documented by: Aspirin (Aspirin) 325 mg PO QDAY [facility] Last Admin: 02/13/19 09:08 Dose: 325 mg Documented by: Dextrose (D50w (25gm) Syringe) 50 ml IV PRN PRN PRN Reason: Hypoglycemia Last Admin: 02/10/19 01:10 Dose: 50 ml Documented by: Docusate Sodium (Colace) 100 mg PO BID [facility] Last Admin: 02/13/19 09:15 Dose: Not Given Documented by: Heparin Sodium (Porcine) (Heparin) 5,000 unit SUB-Q Q12HR [facility] Last Admin: 02/13/19 09:08 Dose: 5,000 unit Documented by: Hydralazine HCl (Apresoline) 10 mg IV Q4HR PRN PRN Reason: sbp above 180 Last Admin: 02/12/19 22:18 Dose: 10 mg Documented by: Sodium Chloride (Nacl 0.45% 1000 Ml) 1,000 mls @ 75 mls/hr IV DIRECT [facility] Last Admin: 02/12/19 13:53 Dose: 42 mls/hr Documented by: Insulin Human Lispro (Humalog) 0 unit SUB-Q [facility]; Protocol Last Admin: 08/20/19 09:05 Dose: Not Given Documented by: Ondansetron HCl (Zofran) 4 mg IV Q6H PRN PRN Reason: Nausea And Vomiting Sodium Chloride (Sodium Chloride Flush Syringe 10 Ml) 10 ml IV BID ALESSANDRO Last Admin: 02/13/19 09:17 Dose: 10 ml Documented by: Sodium Chloride (Sodium Chloride Flush Syringe 10 Ml) 10 ml IV PRN PRN PRN Reason: LINE FLUSH Review of Systems All systems: negative (none) Exam Vital Signs Temp Pulse Resp BP Pulse Ox 98.4 F 80 20 74/46 74 L 02/08/19 15:51 02/08/19 15:51 02/08/19 15:51 02/08/19 15:51 02/08/19 15:51 - General physical appearance Positive: well developed, well nourished, no distress - Eyes Positive: PERRL, normal occular movement - ENT Positive: normal pinna, normal nares, normal mucosa, no hearing loss, no congestion - Neck Positive: no masses, no bruits, trachea midline, no venous distension - Respiratory Positive: normal expansion, normal respiratory effort, clear to auscultation - Cardiovascular Rhythm: regular Heart Sounds: Present: S1 & S2. Absent: rub, click - Extremities Extremities: no ischemia, pulses symmetrical, No edema - Breasts Breasts: deferred - Abdomen Abdomen: Present: soft, bowel sounds normal. Absent: tender, distended Hernia: none - Genitourinary Female Genitourinary: deferred - Integumentary other (The skin of the left 2nd toe from the nail bed distally is necrotic. Sutures are present in the distal left 2nd toe. There are no signs of infection.) - Neurologic Neurologic: alert and oriented to time, place and person, motor strength and sensation are grossly intact - Musculoskeletal normal gait, normal posture - Psychiatric Psychiatric: appropriate mood/affect, intact judgment & insight Results - Labs 02/13/19 04:33 02/13/19 04:33 Abnormal lab results 02/12/19 02/12/19 02/12/19 Range/Units 11:42 16:40 21:55 RBC (3.65-5.03) M/mm3 Hgb (10.1-14.3) gm/dl Hct (30.3-42.9) % BUN (7-17) mg/dL Creatinine (0.7-1.2) mg/dL POC Glucose 67 L 112 H 139 H (70-105) 02/13/19 02/13/19 Range/Units 04:33 04:33 RBC 2.81 L (3.65-5.03) M/mm3 Hgb 8.7 L (10.1-14.3) gm/dl Hct 26.0 L (30.3-42.9) % BUN 36 H (7-17) mg/dL Creatinine 5.5 H (0.7-1.2) mg/dL POC Glucose (70-105) Diabetes panel 02/13/19 Range/Units 04:33 Sodium 138 (137-145) mmol/L Potassium 4.0 (3.6-5.0) mmol/L Chloride 101.4 (98-107) mmol/L Carbon Dioxide 22 (22-30) mmol/L BUN 36 H (7-17) mg/dL Creatinine 5.5 H (0.7-1.2) mg/dL Glucose 95 (65-100) mg/dL Calcium 8.5 (8.4-10.2) mg/dL Calcium panel 02/13/19 Range/Units 04:33 Calcium 8.5 (8.4-10.2) mg/dL Pituitary panel 02/13/19 Range/Units 04:33 Sodium 138 (137-145) mmol/L Potassium 4.0 (3.6-5.0) mmol/L Chloride 101.4 (98-107) mmol/L Carbon Dioxide 22 (22-30) mmol/L BUN 36 H (7-17) mg/dL Creatinine 5.5 H (0.7-1.2) mg/dL Glucose 95 (65-100) mg/dL Calcium 8.5 (8.4-10.2) mg/dL Adrenal panel 02/13/19 Range/Units 04:33 Sodium 138 (137-145) mmol/L Potassium 4.0 (3.6-5.0) mmol/L Chloride 101.4 (98-107) mmol/L Carbon Dioxide 22 (22-30) mmol/L BUN 36 H (7-17) mg/dL Creatinine 5.5 H (0.7-1.2) mg/dL Glucose 95 (65-100) mg/dL Calcium 8.5 (8.4-10.2) mg/dL - Imaging Additional studies: A1c on 02/08/19 was 6.1. Assessment and Plan - Patient Problems (1) Type 2 diabetes mellitus with foot ulcer Current Visit: Yes Status: Acute Plan to address problem: 1) Check LLE arterial dopplers. 2) Strict control of DM 3) Check LLE MRI without contrast
--- NOTE | 2019-02-13 12:22 | Progress Note ---
Assessment and Plan Pt appears comfortable and clinically stable from cardiology standpoint. Optimize BPs - resume home amlodipine. Renal indices worsening - nephrology following. The patient has been seen in conjunction with Dr. Wilson who agrees with the assessment and plan of care. - Patient Problems (1) Acute heart failure with preserved ejection fraction (HFpEF) Current Visit: Yes Status: Acute (2) Acute renal failure Current Visit: Yes Status: Acute (3) Diabetic infection of left foot Current Visit: Yes Status: Acute (4) Osteomyelitis of left foot Current Visit: Yes Status: Acute (5) Diabetes Current Visit: Yes Status: Chronic (6) Hypertension Current Visit: Yes Status: Chronic (7) Anemia Current Visit: Yes Status: Acute Subjective Date of service: 02/13/19 Principal diagnosis: acute kidney injury Interval history: pt resting in bed, states she is feeling better, daughter at bedside. in SR on tele. Objective Last Vital Signs Temp 98.4 F 02/13/19 08:55 Pulse 81 02/13/19 11:46 Resp 20 02/13/19 10:00 BP 174/88 02/13/19 08:55 Pulse Ox 98 02/13/19 10:00 - Physical Examination General: Appears Well HEENT: Positive: PERRL Neck: Positive: neck supple. Negative: JVD/HJR, Bruit Cardiac: Positive: Reg Rate and Rhythm, S1/S2 Lungs: Positive: Decreased Breath Sounds Neuro: Positive: Grossly Intact Abdomen: Positive: Soft. Negative: Tender Skin: Positive: Clear. Negative: Rash Musculoskeletal: Normal Range of Motion Extremities: Present: +1 Edema (ble), Other (pedal pulses intact) - Labs and Meds CBC 02/13/19 Range/Units 04:33 WBC 9.7 (4.5-11.0) K/mm3 RBC 2.81 L (3.65-5.03) M/mm3 Hgb 8.7 L (10.1-14.3) gm/dl Hct 26.0 L (30.3-42.9) % Plt Count 209 (140-440) K/mm3 Comprehensive Metabolic Panel 02/13/19 Range/Units 04:33 Sodium 138 (137-145) mmol/L Potassium 4.0 (3.6-5.0) mmol/L Chloride 101.4 (98-107) mmol/L Carbon Dioxide 22 (22-30) mmol/L BUN 36 H (7-17) mg/dL Creatinine 5.5 H (0.7-1.2) mg/dL Glucose 95 (65-100) mg/dL Calcium 8.5 (8.4-10.2) mg/dL - Imaging and Cardiology Echo: report reviewed (02/08/2019: EF 50-55%, mild TR, small pericardial effusion, mod left pleural effusion) - Telemetry EKG Rhythm: Sinus Rhythm
--- NOTE | 2019-02-13 12:50 | Vascular Lab Report ---
DUPLEX DOPPLER LOWER EXTREMITY ARTERIAL, LEFT INDICATION: Left foot ulcer. TECHNIQUE: Arterial duplex examination of both lower extremities performed using B-mode, color flow and spectral Doppler assessment. FINDINGS: LEFT: Common Femoral Artery: PSV 83 cm/sec. Triphasic waveform. Proximal SFA: PSV 110 cm/sec. Triphasic waveform. Mid SFA: PSV 105 cm/sec. Triphasic waveform. Distal SFA: PSV 77 cm/sec. Triphasic waveform. Popliteal artery: PSV 85 cm/sec. Triphasic waveform. Posterior tibial artery: PSV 122 cm/sec. Triphasic waveform. Dorsalis Pedis Artery: PSV 68 cm/sec. Triphasic waveform. Mild smooth homogeneous plaques are noted throughout the left lower extremity arterial structures. IMPRESSION: No significant lower extremity peripheral artery disease. Doppler Waveform: * Triphasic is normal. * Biphasic is abnormal if clear transition from triphasic signal along vascular tree. * Monophasic is abnormal. Signer Name: Cliff Ricardo Jr, MD Signed: 02/13/2019 12:45 PM Workstation Name: [id number]
--- NOTE | 2019-02-13 14:05 | Progress Note ---
Assessment and Plan Assessment and plan: tamika is a 63 -year-old Bengali speaking woman with a history of hypertension, DM, Diabetic foot ulcer status post debridement of left second toe d/t (one week ago at [facility]) who presents to [facility] ED with complaints of generalized weakness, dizziness, chest pain and sob. CT Head negative for acute intracranial abnormalities. * V/Q Scan: FINDINGS: Normal wash-in and washout of xenon radiotracer. No mismatch perfusion defect identified. IMPRESSION: Low probability for PTE * CT Head: Findings: BRAIN/INTRACRANIAL STRUCTURES: Unenhanced CT images of the brain demonstrate no evidence of acute intracranial abnormality. Ventricles and sulci are normal in size and shape. There is no evidence of acute ischemic injury, hemorrhage, or mass. An old appearing left basal ganglia lacunar infarct is noted. This was not present at the time the prior exam,. Air-fluid levels are present in the maxillary sinuses bilaterally. The prior exam demonstrated right-sided sinus opacification only. There is prominent mucosal thickening also now present in the right frontal sinus, similar to the prior exam. EXTRACRANIAL STRUCTURES: Unremarkable. Impression: No acute intracranial abnormality. Paranasal sinus disease, including bilateral maxillary sinus air- fluid levels. * 2D ECHO conclusions: Normal cardiac chamber dimensions, LVEF 50-55%, normal RVSF, mild TR, small pericardial effusion that does not appear to be hemodynamically significant, moderate left pleural effusion * pCXR lungs with bilateral interstitial edema and pleural effusions Acute diastolic HF -diastolic heart failure, -BNP elevated at 5451 -IV diuretics on hold due to worsening renal function. -Cardiology consulted Cardiogenic Shock, resolved -Hold anti hypertensive meds -Started on dobutamine drip now off -Continue to monitor BP Acute hypoxic Respiratory Failure, resolved, off o2 -No baseline home oxygen requirements -weaned off supplemental O2 -Respiratory assess and treat per protocol ruled out PE -Elevated D-Dimer -V/Q scan showed Low probability for PTE Acute kidney failure likely due to ATN vasomotor nephropathy from cardiogenic shock, cardiorenal syndrome, poa -additional history garnered from Dr. Medina, basically ARF from ATN/Vancomycin and was worsening when d/c from [facility] and this worsening progression is from initial insult at prior hospitalization at [facility] -Cr on admission 3.1 with GFR 15 -Nephrology consult -Avoid nephro toxic agents -Renal dose all meds Leukocytosis -Resolved -monitor cbc closely -pt is afebrile, with no UTI as UA specimen contaminated with epithelial cells which was confirmed by urine cultures -BC negative -Junior Buyer started iv rocephin -Continue to monitor for now; -Consulted ID Necrotic 2nd left toes with sutures in place, done at [facility] -Wound care consult -Consult Mild to Moderate Malnutrition -BMI -Albumin 3.2 -Dietitian consult pending DM2 -POC BG monitoring -HgbA1c 6.1 -SSI Coverage Anemia of chronic disease -Hgb on admission 8.5 -no s/s of active bleeding -Monitor Hgb, transfuse prn Suspect DM Retinopathy, patient is basically blind for about 1 month now. When I handed the patient the Loan Approver line phone she couldn't see it and proceeded to tell me she has been having blurred vision for about 1 month now. -Ophthal outpatient referral upon discharge (none here) DVT PPX -on heparin disposition: continue inpatient care, problem is the documentation of I/Os yesterday made it appear she made no urine as recorded as 0 for urine output which is not accurate. Nonetheless, if Cr worsened tomorrow then HD will be started. d/w Junior Buyer Dr. Medina===>today cr is worse, make npo, consult Vascular to evaluate for HD line placement 02/12/19 Vas Cath placed, HD for tomorrow if Cr worsen per Dr. Otis Ceron, Junior Buyer History Interval history: Patient seen and examined, no new complaints. resting comfortable, sister at bedside Hospitalist Physical - Physical exam Narrative exam: Gen: WDWN, NAD, Awake, Alert, Oriented HEENT: NCAT, EOMI, PERRL, OP Clear Neck: supple, no adenopathy, no thyromegaly, no JVD CVS/Heart: RRR, normal S1S2, pulses present bilaterally Chest/Lungs: bibasilar crackles, Symmetrical chest expansion, good air entry bilaterally GI/Abdomen: soft, NTND, good bowel sounds, no guarding or rebound /Bladder: no suprapubic tenderness, no CVA or paraspinal tenderness Extermity/Skin: left second toe with necrosis, no c/c/e, no obvious rash MSK: FROM x 4 Neuro: CN 2-12 grossly intact except vision, no new focal deficits Psych: calm - Constitutional Vitals: Temp Pulse Resp BP Pulse Ox 98.4 F 89 14 171/83 100 02/13/19 08:55 02/13/19 13:13 02/13/19 13:13 02/13/19 13:13 02/13/19 13:13 General appearance: Present: no acute distress Results - Labs CBC & Chem 7: 02/13/19 04:33 02/13/19 04:33 Labs: Laboratory Last Values WBC 9.7 K/mm3 (4.5-11.0) 02/13/19 04:33 RBC 2.81 M/mm3 (3.65-5.03) L 02/13/19 04:33 Hgb 8.7 gm/dl (10.1-14.3) L 02/13/19 04:33 Hct 26.0 % (30.3-42.9) L 02/13/19 04:33 MCV 93 fl (79-97) 02/13/19 04:33 MCH 31 pg (28-32) 02/13/19 04:33 MCHC 34 % (30-34) 02/13/19 04:33 RDW 14.9 % (13.2-15.2) 02/13/19 04:33 Plt Count 209 K/mm3 (140-440) 02/13/19 04:33 Lymph % (Auto) 8.9 % (13.4-35.0) L 02/09/19 04:42 [place] % (Auto) 9.0 % (0.0-7.3) H 02/09/19 04:42 Eos % (Auto) 0.4 % (0.0-4.3) 02/09/19 04:42 Baso % (Auto) 0.3 % (0.0-1.8) 02/09/19 04:42 Lymph # 1.4 K/mm3 (1.2-5.4) 02/09/19 04:42 [place] # 1.5 K/mm3 (0.0-0.8) H 02/09/19 04:42 Eos # 0.1 K/mm3 (0.0-0.4) 02/09/19 04:42 Baso # 0.0 K/mm3 (0.0-0.1) 02/09/19 04:42 Seg Neutrophils % 81.4 % (40.0-70.0) H 02/09/19 04:42 Seg Neutrophils # 13.2 K/mm3 (1.8-7.7) H 02/09/19 04:42 APTT 30.1 Sec. (24.2-36.6) 02/08/19 17:14 890.59 ng/mlDDU (0-234) H 02/08/19 17:14 Sodium 138 mmol/L (137-145) 02/13/19 04:33 Potassium 4.0 mmol/L (3.6-5.0) 02/13/19 04:33 Chloride 101.4 mmol/L (98-107) 02/13/19 04:33 Carbon Dioxide 22 mmol/L (22-30) 02/13/19 04:33 19 mmol/L 02/13/19 04:33 BUN 36 mg/dL (7-17) H 02/13/19 04:33 5.5 mg/dL (0.7-1.2) H 02/13/19 04:33 Estimated GFR 8 ml/min 02/13/19 04:33 7 % 02/13/19 04:33 Glucose 95 mg/dL (65-100) 02/13/19 04:33 POC Glucose 87 (70-105) 02/13/19 09:04 6.1 % (4-6) H 02/08/19 16:25 Lactic Acid 0.80 mmol/L (0.7-2.0) 02/08/19 21:00 Calcium 8.5 mg/dL (8.4-10.2) 02/13/19 04:33 0.40 mg/dL (0.1-1.2) 02/08/19 16:26 AST 46 units/L (5-40) H 02/08/19 16:26 ALT 43 units/L (7-56) 02/08/19 16:26 123 units/L (35-129) 02/08/19 16:26 0.016 ng/mL (0.00-0.029) 02/09/19 04:42 NT-Pro-B Natriuret Pep 5451 pg/mL (0-900) H 02/08/19 16:26 6.9 g/dL (6.3-8.2) 02/08/19 16:26 3.2 g/dL (3.9-5) L 02/08/19 16:26 0.9 % 02/08/19 16:26 Shelli (Yellow) 02/09/19 03:45 Straw (Yellow) 02/09/19 03:45 Clear (Clear) 02/09/19 03:45 Cloudy (Clear) 02/09/19 03:45 5.0 (5.0-7.0) 02/09/19 03:45 6.0 (5.0-7.0) 02/09/19 03:45 Ur Specific [place] 1.006 (1.003-1.030) 02/09/19 03:45 Ur Specific [place] 1.013 (1.003-1.030) 02/09/19 03:45 30 mg/dl mg/dL (Negative) 02/09/19 03:45 <15 mg/dl mg/dL (Negative) 02/09/19 03:45 Neg mg/dL (Negative) 02/09/19 03:45 Neg mg/dL (Negative) 02/09/19 03:45 Neg mg/dL (Negative) 02/09/19 03:45 Neg mg/dL (Negative) 02/09/19 03:45 Sm (Negative) 02/09/19 03:45 Sm (Negative) 02/09/19 03:45 Neg (Negative) 02/09/19 03:45 Neg (Negative) 02/09/19 03:45 Neg (Negative) 02/09/19 03:45 Neg (Negative) 02/09/19 03:45 < 2.0 mg/dL (<2.0) 02/09/19 03:45 < 2.0 mg/dL (<2.0) 02/09/19 03:45 Ur Leukocyte Esterase Lg (Negative) 02/09/19 03:45 Ur Leukocyte Esterase Neg (Negative) 02/09/19 03:45 1.0 /HPF (0.0-6.0) 02/09/19 03:45 48.0 /HPF (0.0-6.0) H 02/09/19 03:45 2.0 /HPF (0.0-6.0) 02/09/19 03:45 34.0 /HPF (0.0-6.0) 02/09/19 03:45 U Epithel Cells (Auto) 1.0 /HPF (0-13.0) 02/09/19 03:45 U Epithel Cells (Auto) 22.0 /HPF (0-13.0) H 02/09/19 03:45 1+ /HPF (Negative) 02/09/19 03:45 2+ /HPF (Negative) 02/09/19 03:45 Few /HPF 02/09/19 03:45 Few /HPF 02/09/19 03:45 Few /HPF 02/09/19 03:45 None seen (None Seen) 02/10/19 Unknown 125 mg/dL (83-193) 02/10/19 07:59 38 mg/dL (15-57) 02/10/19 07:59 Active Medications - Current Medications Current Medications: Generic Name Dose Route Start Last Admin Trade Name Freq PRN Reason Stop Dose Admin Acetaminophen 650 mg 02/08/19 22:15 02/12/19 19:33 Tylenol PO 650 mg Q4H PRN Administration Pain MILD(1-3)/Fever >100.5/WHITEHEAD Amlodipine Besylate 5 mg 02/13/19 13:00 Norvasc PO QDAY ALESSANDRO Aspirin 81 mg 02/14/19 10:00 Baby Aspirin PO QDAY [facility] Dextrose 50 ml 02/08/19 22:15 02/10/19 01:10 D50w (25gm) Syringe IV 50 ml PRN PRN Administration Hypoglycemia Docusate Sodium 100 mg 02/09/19 10:00 02/13/19 09:15 Colace PO Not Given BID ALESSANDRO Heparin Sodium (Porcine) 5,000 unit 02/09/19 10:00 02/13/19 09:08 Heparin SUB-Q 5,000 unit Q12HR ALESSANDRO Administration Hydralazine HCl 10 mg 02/11/19 08:56 02/12/19 22:18 Apresoline IV 10 mg Q4HR PRN Administration sbp above 180 Sodium Chloride 1,000 mls @ 75 mls/hr 02/10/19 10:00 02/12/19 13:53 Nacl 0.45% 1000 Ml IV 42 mls/hr DIRECT ALESSANDRO Administration Insulin Human Lispro 0 unit 02/09/19 07:30 02/13/19 09:05 Humalog SUB-Q Not Given ACHS [facility] Protocol Ondansetron HCl 4 mg 02/08/19 22:15 Zofran IV Q6H PRN Nausea And Vomiting Sodium Chloride 10 ml 02/09/19 10:00 02/13/19 09:17 Sodium Chloride Flush Syringe 10 Ml IV 10 ml BID ALESSANDRO Administration Sodium Chloride 10 ml 02/08/19 22:15 Sodium Chloride Flush Syringe 10 Ml IV PRN PRN LINE FLUSH
--- NOTE | 2019-02-13 14:26 | Magnetic Resonance Report ---
MRI LEFT FOOT WITHOUT CONTRAST INDICATION / CLINICAL INFORMATION: Diabetic foot ulcer. TECHNIQUE: Multiplanar, multisequence MR images were obtained. COMPARISON: Left ankle radiograph stated 11/11/17 FINDINGS: BONES: Low T1 and increased T2 signal within the middle phalanx of the 2nd toe. There appears to been previous amputation of the distal phalanx of the 2nd toe. There is mild reactive edema in the proxim al phalanx of the 2nd toe. No acute fracture. Incomplete healing of a transverse fracture of the base of the 5th metatarsal. No osseous lesion. JOINTS: Mild degenerative arthrosis of the 1st MTP joint. No significant joint effusion or synovitis. SUBCUTANEOUS SOFT TISSUES: There is irregularity of the distal end of the 2nd toe with surrounding sheridan bcutaneous soft tissue edema. MUSCLES: Mild fatty atrophy and increased T2 signal of the intrinsic muscles of the foot which could represent mild uropathy. FLEXOR TENDONS: No significant abnormality. EXTENSOR TENDONS: No significant abnormality. LIGAMENTS: No significant abnormality. ADDITIONAL FINDINGS: None. IMPRESSION: 1. Soft tissue irregularity of the stump of the 2nd toe with probable underlying osteomyelitis of the remaining middle phalanx. 2. Cellulitis of the 2nd toe but no soft tissue abscess. Signer Name: Jerald Story MD Signed: 02/13/2019 2:21 PM Workstation Name: [id number]
[2019-02-13 14:27] LABS: Bacteria,Urine 1+ /HPF (Negative); Mucus,Urine FEW /HPF
[2019-02-13] MEDS: NORVASC PO SCH (14:47)
[2019-02-13] MEDS: NACL 0.45% 1000 ML 1,000 ML IV SCH (17:23)
[2019-02-14 07:23] LABS: Calcium 8.5 mg/dL (8.4-10.2)
[2019-02-14] MEDS: HumaLOG SUB-Q SCH ×4 (08:41→22:09)
--- NOTE | 2019-02-14 09:01 | Progress Note ---
Assessment and Plan Impression: * Acute kidney injury secondary to ATN vs AIN (less likely AIN given lack of peripheral eosinophilia) --Renal ultrasound: right kidney is 12.3 cm, left kidney is 12.9 cm in length. There is no hydronephrosis (Jan 2019 - [facility]) --SCr 0.95mg/dL on Jan 29, 2019 --Hx of PUSHPA at [facility] - SCr 2.17mg/dL at discharge (SCr was trending up at id) * Pulmonary edema --TTE: LV normal size. Nmll LV wall thickness. LV wall motion nml. EF > 55%. LVEF nml. Nml LV diastolic function (Feb 04 at [facility]). * Acute osteomyelitis of the left foot second toe distal phalanx (MRI Jan 30 2019 @ [facility]) * Type II DM * Hypertension Plan: * Records from [facility] reviewed - PUSHPA was attributed to ATN related to vancomycin per nephrology group following her at that time. SCr was worsening at time of discharge. PUSHPA likely ongoing, continuation from initial insult at previous hospitalization with presumed tubular injury * Renal prognosis remains guarded. Creatinine appears to have plateaued, and am hopeful for tubular recovery in coming days and ultimate improvement of PUSHPA. Respiratory status stable. Patient w/ possible sx of early uremia - nausea, loss of appetite (although eating full meals per nursing). Advised of likelihood of patient requiring dialysis (via intrepreter) in coming days; patient with vas-cath when needed. No indication for acute renal replacement therapy today, but if she continues to have nausea and limited urine output (<500ml) in conjunction with increased oxygen requirements, will plan for short HD session in next 24-48 hours * continue to follow Strict I/O (not all urine output seems to have been documented from overnight). Addressed with chargemaster analyst, RN and PCT. * Continue IVF for hydration - 0.45% NS 75ml/hour * Continue to hold diuretics * Abx per primary team * Continue to hold ACEi * Avoid potential nephrotoxins * Dose medications for renal function Subjective Date of service: 02/14/19 Principal diagnosis: acute kidney injury Interval history: no acute events overnight. patient without any new complaints- notes normal breathing, no chest pain, no lower extremity edema. discussed with case with family at bedside; family noted that she urinated multiple times overnight Objective - Exam Narrative Exam: General appearance: well-developed, well-nourished EENT: atraumatic Respiratory: Clear to Auscultation bilaterally, on nasal cannula 2L Cardiology: regular, S1S2, no lower extremity edema Gastrointestinal: normal, no distended, no masses Neurologic: no focal deficit Psychiatric: cooperative - Vital Signs Vital signs: Vital Signs - 12hr 02/13/19 02/14/19 02/14/19 22:00 00:02 04:13 Temperature 98.5 F 98.2 F Pulse Rate 84 89 87 Respiratory 18 18 Rate Blood Pressure 173/77 150/78 O2 Sat by Pulse 97 97 Oximetry 02/14/19 08:13 Temperature 98.4 F Pulse Rate 91 H Respiratory 18 Rate Blood Pressure 171/87 O2 Sat by Pulse 99 Oximetry - Lab 02/13/19 04:33 02/14/19 06:36 Most recent lab results Calcium 8.5 mg/dL (8.4-10.2) 02/14/19 06:36 Medications & Allergies - Medications Allergies/Adverse Reactions: Allergies No Known Allergies Allergy (Verified 11/11/17 20:53) Home Medications: Home Medications Medication Instructions Recorded Confirmed Last Taken Type amLODIPine [Norvasc] 5 mg PO DAILY 03/09/17 02/08/19 02/08/19 History metFORMIN [Glucophage] 500 mg PO BID 03/09/17 02/08/19 02/08/19 History Active Medications: Generic Name Dose Route Start Last Admin Trade Name Freq PRN Reason Stop Dose Admin Acetaminophen 650 mg 02/08/19 22:15 02/12/19 19:33 Tylenol PO 650 mg Q4H PRN Administration Pain MILD(1-3)/Fever >100.5/WHITEHEAD Amlodipine Besylate 5 mg 02/13/19 13:00 02/13/19 14:47 Norvasc PO 5 mg QDAY ALESSANDRO Administration Aspirin 81 mg 02/14/19 10:00 Baby Aspirin PO QDAY ALESSANDRO Dextrose 50 ml 02/08/19 22:15 02/10/19 01:10 D50w (25gm) Syringe IV 50 ml PRN PRN Administration Hypoglycemia Docusate Sodium 100 mg 02/09/19 10:00 02/13/19 21:31 Colace PO Not Given BID ALESSANDRO Heparin Sodium (Porcine) 5,000 unit 02/09/19 10:00 02/13/19 21:18 Heparin SUB-Q 5,000 unit Q12HR ALESSANDRO Administration Hydralazine HCl 10 mg 02/11/19 08:56 02/12/19 22:18 Apresoline IV 10 mg Q4HR PRN Administration sbp above 180 Sodium Chloride 1,000 mls @ 75 mls/hr 02/10/19 10:00 02/13/19 17:23 Nacl 0.45% 1000 Ml IV 42 mls/hr DIRECT ALESSANDRO Administration Insulin Human Lispro 0 unit 02/09/19 07:30 02/14/19 08:41 Humalog SUB-Q Not Given ACHS [facility] Protocol Ondansetron HCl 4 mg 02/08/19 22:15 Zofran IV Q6H PRN Nausea And Vomiting Sodium Chloride 10 ml 02/09/19 10:00 02/13/19 21:18 Sodium Chloride Flush Syringe 10 Ml IV 10 ml BID ALESSANDRO Administration Sodium Chloride 10 ml 02/08/19 22:15 Sodium Chloride Flush Syringe 10 Ml IV PRN PRN LINE FLUSH
[2019-02-14] MEDS: NACL 0.45% 1000 ML 1,000 ML IV SCH ×2 (09:35→22:09)
[2019-02-14] MEDS: BABY ASPIRIN PO SCH (09:36)
[2019-02-14] MEDS: NORVASC PO SCH (09:37)
[2019-02-14] MEDS: HEPARIN SUB-Q SCH ×2 (09:37→22:08)
[2019-02-14] MEDS: COLACE PO SCH ×2 (09:38→22:08)
[2019-02-14] MEDS: SODIUM CHLORIDE FLUSH SYRINGE 10 ML IV SCH ×2 (09:44→22:09)
--- NOTE | 2019-02-14 10:54 | Progress Note ---
Assessment and Plan Pt appears comfortable and clinically stable from cardiology standpoint. Optimize BP - increase amlodipine. Renal indices worsening - nephrology following. The patient has been seen in conjunction with Dr. Wilson who agrees with the assessment and plan of care. - Patient Problems (1) Acute heart failure with preserved ejection fraction (HFpEF) Current Visit: Yes Status: Acute (2) Acute renal failure Current Visit: Yes Status: Acute (3) Diabetic infection of left foot Current Visit: Yes Status: Acute (4) Osteomyelitis of left foot Current Visit: Yes Status: Acute (5) Diabetes Current Visit: Yes Status: Chronic (6) Hypertension Current Visit: Yes Status: Chronic (7) Anemia Current Visit: Yes Status: Acute Subjective Date of service: 02/14/19 Principal diagnosis: acute kidney injury Interval history: pt resting in bed, states she is feeling better, son at bedside. in SR on tele. Objective Last Vital Signs Temp 98.4 F 02/14/19 08:13 Pulse 91 H 02/14/19 09:37 Resp 18 02/14/19 08:13 BP 171/87 02/14/19 09:37 Pulse Ox 99 02/14/19 08:13 - Physical Examination General: Appears Well HEENT: Positive: PERRL Neck: Positive: neck supple. Negative: JVD/HJR, Bruit Cardiac: Positive: Reg Rate and Rhythm, S1/S2 Lungs: Positive: Decreased Breath Sounds Neuro: Positive: Grossly Intact Abdomen: Positive: Soft. Negative: Tender Skin: Positive: Clear. Negative: Rash Musculoskeletal: Normal Range of Motion Extremities: Present: +1 Edema (ble), Other (pedal pulses intact) - Labs and Meds Comprehensive Metabolic Panel 02/14/19 Range/Units 06:36 Sodium 136 L (137-145) mmol/L Potassium 3.8 (3.6-5.0) mmol/L Chloride 100.5 (98-107) mmol/L Carbon Dioxide 20 L (22-30) mmol/L BUN 39 H (7-17) mg/dL Creatinine 5.6 H (0.7-1.2) mg/dL Glucose 110 H (65-100) mg/dL Calcium 8.5 (8.4-10.2) mg/dL - Imaging and Cardiology Echo: report reviewed (02/08/2019: EF 50-55%, mild TR, small pericardial effusion, mod left pleural effusion)
--- NOTE | 2019-02-14 11:28 | Progress Note ---
Assessment and Plan Assessment and plan: tamika is a 63 -year-old Thai speaking woman with a history of hypertension, DM, Diabetic foot ulcer status post debridement of left second toe d/t (one week ago at [facility]) who presents to [facility] ED with complaints of generalized weakness, dizziness, chest pain and sob. CT Head negative for acute intracranial abnormalities. * V/Q Scan: FINDINGS: Normal wash-in and washout of xenon radiotracer. No mismatch perfusion defect identified. IMPRESSION: Low probability for PTE * CT Head: Findings: BRAIN/INTRACRANIAL STRUCTURES: Unenhanced CT images of the brain demonstrate no evidence of acute intracranial abnormality. Ventricles and sulci are normal in size and shape. There is no evidence of acute ischemic injury, hemorrhage, or mass. An old appearing left basal ganglia lacunar infarct is noted. This was not present at the time the prior exam,. Air-fluid levels are present in the maxillary sinuses bilaterally. The prior exam demonstrated right-sided sinus opacification only. There is prominent mucosal thickening also now present in the right frontal sinus, similar to the prior exam. EXTRACRANIAL STRUCTURES: Unremarkable. Impression: No acute intracranial abnormality. Paranasal sinus disease, including bilateral maxillary sinus air- fluid levels. * 2D ECHO conclusions: Normal cardiac chamber dimensions, LVEF 50-55%, normal RVSF, mild TR, small pericardial effusion that does not appear to be hemodynamically significant, moderate left pleural effusion * pCXR lungs with bilateral interstitial edema and pleural effusions Acute diastolic HF -diastolic heart failure, -BNP elevated at 5451 -IV diuretics on hold due to worsening renal function. -Cardiology consulted Cardiogenic Shock, resolved -Hold anti hypertensive meds -Started on dobutamine drip now off -Continue to monitor BP Acute hypoxic Respiratory Failure, resolved, off o2 -No baseline home oxygen requirements -weaned off supplemental O2 -Respiratory assess and treat per protocol ruled out PE -Elevated D-Dimer -V/Q scan showed Low probability for PTE Acute kidney failure likely due to ATN vasomotor nephropathy from cardiogenic shock, cardiorenal syndrome, poa -additional history garnered from Dr. Medina, basically ARF from ATN/Vancomycin and was worsening when d/c from [facility] and this worsening progression is from initial insult at prior hospitalization at [facility] -Cr on admission 3.1 with GFR 15 -Nephrology consult -Avoid nephro toxic agents -Renal dose all meds Leukocytosis -Resolved -monitor cbc closely -pt is afebrile, with no UTI as UA specimen contaminated with epithelial cells which was confirmed by urine cultures -BC negative -Machine Boss started iv rocephin--Consulted ID -Continue to monitor for now; Necrotic 2nd left toes with sutures in place, done at [facility] -Wound care consult -Consult Mild to Moderate Malnutrition -BMI -Albumin 3.2 -Dietitian consult pending DM2 -POC BG monitoring -HgbA1c 6.1 -SSI Coverage Anemia of chronic disease -Hgb on admission 8.5 -no s/s of active bleeding -Monitor Hgb, transfuse prn Suspect DM Retinopathy, patient is basically blind for about 1 month now. When I handed the patient the [employer] line phone she couldn't see it and proceeded to tell me she has been having blurred vision for about 1 month now. -Ophthal outpatient referral upon discharge (none here) DVT PPX -on heparin disposition: continue inpatient care, problem is the documentation of I/Os yesterday made it appear she made no urine as recorded as 0 for urine output which is not accurate. Nonetheless, if Cr worsened tomorrow then HD will be started. d/w Machine Boss Dr. Medina===>today cr is worse, make npo, consult Vascular to evaluate for HD line placement 02/12/19 Vas Cath placed, HD for tomorrow if Cr worsen per Dr. Otis Ceron, Machine Boss History Interval history: Patient seen and examined, no new complaints. Resting comfortable, sister at bedside Hospitalist Physical - Physical exam Narrative exam: Gen: WDWN, NAD, Awake, Alert, Oriented HEENT: NCAT, EOMI, PERRL, OP Clear Neck: supple, no adenopathy, no thyromegaly, no JVD CVS/Heart: RRR, normal S1S2, pulses present bilaterally Chest/Lungs: bibasilar crackles, Symmetrical chest expansion, good air entry estela aterally GI/Abdomen: soft, NTND, good bowel sounds, no guarding or rebound /Bladder: no suprapubic tenderness, no CVA or paraspinal tenderness Extermity/Skin: left second toe with necrosis with suture, no c/c/e, no other obvious rash MSK: FROM x 4 Neuro: CN 2-12 grossly intact except vision, no new focal deficits Psych: calm - Constitutional Vitals: Temp Pulse Resp BP Pulse Ox 98.4 F 91 H 18 171/87 99 02/14/19 08:13 02/14/19 09:37 02/14/19 08:13 02/14/19 09:37 02/14/19 08:13 General appearance: Present: no acute distress Results - Labs CBC & Chem 7: 02/13/19 04:33 02/14/19 06:36 Labs: Laboratory Last Values WBC 9.7 K/mm3 (4.5-11.0) 02/13/19 04:33 RBC 2.81 M/mm3 (3.65-5.03) L 02/13/19 04:33 Hgb 8.7 gm/dl (10.1-14.3) L 02/13/19 04:33 Hct 26.0 % (30.3-42.9) L 02/13/19 04:33 MCV 93 fl (79-97) 02/13/19 04:33 MCH 31 pg (28-32) 02/13/19 04:33 MCHC 34 % (30-34) 02/13/19 04:33 RDW 14.9 % (13.2-15.2) 02/13/19 04:33 Plt Count 209 K/mm3 (140-440) 02/13/19 04:33 Lymph % (Auto) 8.9 % (13.4-35.0) L 02/09/19 04:42 Gila % (Auto) 9.0 % (0.0-7.3) H 02/09/19 04:42 Eos % (Auto) 0.4 % (0.0-4.3) 02/09/19 04:42 Baso % (Auto) 0.3 % (0.0-1.8) 02/09/19 04:42 Lymph # 1.4 K/mm3 (1.2-5.4) 02/09/19 04:42 Gila # 1.5 K/mm3 (0.0-0.8) H 02/09/19 04:42 Eos # 0.1 K/mm3 (0.0-0.4) 02/09/19 04:42 Baso # 0.0 K/mm3 (0.0-0.1) 02/09/19 04:42 Seg Neutrophils % 81.4 % (40.0-70.0) H 02/09/19 04:42 Seg Neutrophils # 13.2 K/mm3 (1.8-7.7) H 02/09/19 04:42 APTT 30.1 Sec. (24.2-36.6) 02/08/19 17:14 890.59 ng/mlDDU (0-234) H 02/08/19 17:14 Sodium 136 mmol/L (137-145) L 02/14/19 06:36 Potassium 3.8 mmol/L (3.6-5.0) 02/14/19 06:36 Chloride 100.5 mmol/L (98-107) 02/14/19 06:36 Carbon Dioxide 20 mmol/L (22-30) L 02/14/19 06:36 19 mmol/L 02/14/19 06:36 BUN 39 mg/dL (7-17) H 02/14/19 06:36 5.6 mg/dL (0.7-1.2) H 02/14/19 06:36 Estimated GFR 8 ml/min 02/14/19 06:36 7 % 02/14/19 06:36 Glucose 110 mg/dL (65-100) H 02/14/19 06:36 POC Glucose 112 (70-105) H 02/14/19 08:21 6.1 % (4-6) H 02/08/19 16:25 Lactic Acid 0.80 mmol/L (0.7-2.0) 02/08/19 21:00 Calcium 8.5 mg/dL (8.4-10.2) 02/14/19 06:36 0.40 mg/dL (0.1-1.2) 02/08/19 16:26 AST 46 units/L (5-40) H 02/08/19 16:26 ALT 43 units/L (7-56) 02/08/19 16:26 123 units/L (35-129) 02/08/19 16:26 0.016 ng/mL (0.00-0.029) 02/09/19 04:42 NT-Pro-B Natriuret Pep 5451 pg/mL (0-900) H 02/08/19 16:26 6.9 g/dL (6.3-8.2) 02/08/19 16:26 3.2 g/dL (3.9-5) L 02/08/19 16:26 0.9 % 02/08/19 16:26 Shelli (Yellow) 02/09/19 03:45 Straw (Yellow) 02/09/19 03:45 Clear (Clear) 02/09/19 03:45 Cloudy (Clear) 02/09/19 03:45 5.0 (5.0-7.0) 02/09/19 03:45 6.0 (5.0-7.0) 02/09/19 03:45 Ur Specific [place] 1.006 (1.003-1.030) 02/09/19 03:45 Ur Specific [place] 1.013 (1.003-1.030) 02/09/19 03:45 30 mg/dl mg/dL (Negative) 02/09/19 03:45 <15 mg/dl mg/dL (Negative) 02/09/19 03:45 Neg mg/dL (Negative) 02/09/19 03:45 Neg mg/dL (Negative) 02/09/19 03:45 Neg mg/dL (Negative) 02/09/19 03:45 Neg mg/dL (Negative) 02/09/19 03:45 Sm (Negative) 02/09/19 03:45 Sm (Negative) 02/09/19 03:45 Neg (Negative) 02/09/19 03:45 Neg (Negative) 02/09/19 03:45 Neg (Negative) 02/09/19 03:45 Neg (Negative) 02/09/19 03:45 < 2.0 mg/dL (<2.0) 02/09/19 03:45 < 2.0 mg/dL (<2.0) 02/09/19 03:45 Ur Leukocyte Esterase Lg (Negative) 02/09/19 03:45 Ur Leukocyte Esterase Neg (Negative) 02/09/19 03:45 10.0 /HPF (0.0-6.0) H 02/13/19 13:45 38.0 /HPF (0.0-6.0) 02/13/19 13:45 U Epithel Cells (Auto) 8.0 /HPF (0-13.0) 02/13/19 13:45 1+ /HPF (Negative) 02/13/19 13:45 Few /HPF 02/09/19 03:45 Ur Transition Epith Cell 2 /HPF 02/13/19 13:45 Few /HPF 02/13/19 13:45 None seen (None Seen) 02/10/19 Unknown 125 mg/dL (83-193) 02/10/19 07:59 38 mg/dL (15-57) 02/10/19 07:59 Active Medications - Current Medications Current Medications: Generic Name Dose Route Start Last Admin Trade Name Freq PRN Reason Stop Dose Admin Acetaminophen 650 mg 02/08/19 22:15 02/12/19 19:33 Tylenol PO 650 mg Q4H PRN Administration Pain MILD(1-3)/Fever >100.5/WHITEHEAD Amlodipine Besylate 10 mg 02/15/19 10:00 Norvasc PO QDAY ALESSANDRO Amlodipine Besylate 5 mg 02/14/19 11:30 Norvasc PO 02/14/19 11:31 NOW ONE Aspirin 81 mg 02/14/19 10:00 02/14/19 09:36 Baby Aspirin PO 81 mg QDAY ALESSANDRO Administration Dextrose 50 ml 02/08/19 22:15 02/10/19 01:10 D50w (25gm) Syringe IV 50 ml PRN PRN Administration Hypoglycemia Docusate Sodium 100 mg 02/09/19 10:00 02/14/19 09:38 Colace PO 100 mg BID ALESSANDRO Administration Heparin Sodium (Porcine) 5,000 unit 02/09/19 10:00 02/14/19 09:37 Heparin SUB-Q 5,000 unit Q12HR ALESSANDRO Administration Hydralazine HCl 10 mg 02/11/19 08:56 02/12/19 22:18 Apresoline IV 10 mg Q4HR PRN Administration sbp above 180 Sodium Chloride 1,000 mls @ 75 mls/hr 02/10/19 10:00 02/14/19 09:35 Nacl 0.45% 1000 Ml IV 42 mls/hr DIRECT ALESSANDRO Administration Insulin Human Lispro 0 unit 02/09/19 07:30 02/14/19 08:41 Humalog SUB-Q Not Given ACHS [facility] Protocol Ondansetron HCl 4 mg 02/08/19 22:15 Zofran IV Q6H PRN Nausea And Vomiting Sodium Chloride 10 ml 02/09/19 10:00 02/14/19 09:44 Sodium Chloride Flush Syringe 10 Ml IV 10 ml BID ALESSANDRO Administration Sodium Chloride 10 ml 02/08/19 22:15 Sodium Chloride Flush Syringe 10 Ml IV PRN PRN LINE FLUSH
[2019-02-14] MEDS ORDERED: NORVASC PO ONE (11:30)
--- NOTE | 2019-02-14 13:28 | Consultation ---
History of Present Illness - Reason for Consult Consult date: 02/14/19 Left 2nd toe osteomyelitis Requesting physician: MAGDY CARSON - History of Present Illness The patient is a 73-year-old female with diabetes mellitus, hypertension, peripheral vascular disease who is known to us from her recent hospitalization at [facility] with acute osteomyelitis of the left foot second toe distal phalanx. Her vascular ultrasound showed diffuse atherosclerosis b ilaterally. She was evaluated by vascular surgery and podiatry and she underwent left second toe distal tip amputation on 01/31/2019. Deep cultures from or grew MSSA, pathology was positive for acute and chronic inflammation but negative for definite of acute osteomyelitis. She received IV antibiotics while in the hospital and then was discharged on oral Ceftin for 7 days. Her hospital stay was complicated by worsening acute kidney injury thought to be multifactorial including from supratherapeutic vancomycin. Her creatinine on the day of discharge was 2.1, baseline creatinine ranged between 0.5-0.8 about 2 weeks ago. She has now been hospitalized here at [facility] on 02/08/2019 with complaints of generalized weakness, dizziness, shortness of breath and chest pain. Upon admission, she was found to be hypoxic. VQ scan was low probability for PE. BNP was found to be elevated and she was given IV diuretics. Patient has otherwise remained afebrile throughout the hospitalization. Had leukocytosis on admission which has resolved. She also got an HD catheter placed for potential HD initiation. She currently denies any complaints. Significant other is at bedside. Patient denies any dysuria or pain. Review of Systems: General: no fevers,chills or rigors HEENT: no new visual disturbance Respiratory: No cough, sputum, hemoptysis or shortness of breath Cardiovascular: No chest pain, syncope Gastrointestinal: No nausea, vomiting or diarrhea Genitourinary: No dysuria or hematuria Musculoskeletal: No new or worsening neck pain or back pain Neurologic: No headaches, seizures Hematologic: No easy bruising or bleeding Endocrine: No night sweats or acute weight loss Skin: negative for rash, jaundice Psychiatric: No suicidal or homicidal ideation Past History Past Medical History: diabetes, hypertension Past Surgical History: Other (Mass removed from under right arm. C- Section, left toe surgery) Social history: , lives with family. denies: smoking, alcohol abuse Family history: no significant family history Medications and Allergies Allergies Allergy/AdvReac Type Severity Reaction Status Date / Time No Known Allergies Allergy Verified 11/11/17 20:53 Home Medications Medication Instructions Recorded Confirmed Last Taken Type amLODIPine [Norvasc] 5 mg PO DAILY 03/09/17 02/08/19 02/08/19 History metFORMIN [Glucophage] 500 mg PO BID 03/09/17 02/08/19 02/08/19 History Active Meds: Active Medications Acetaminophen (Tylenol) 650 mg PO Q4H PRN PRN Reason: Pain MILD(1-3)/Fever >100.5/WHITEHEAD Last Admin: 02/12/19 19:33 Dose: 650 mg Documented by: Amlodipine Besylate (Norvasc) 10 mg PO QDAY [facility] Aspirin (Baby Aspirin) 81 mg PO QDAY [facility] Last Admin: 02/14/19 09:36 Dose: 81 mg Documented by: Dextrose (D50w (25gm) Syringe) 50 ml IV PRN PRN PRN Reason: Hypoglycemia Last Admin: 02/10/19 01:10 Dose: 50 ml Documented by: Docusate Sodium (Colace) 100 mg PO BID [facility] Last Admin: 02/14/19 09:38 Dose: 100 mg Documented by: Heparin Sodium (Porcine) (Heparin) 5,000 unit SUB-Q Q12HR [facility] Last Admin: 02/14/19 09:37 Dose: 5,000 unit Documented by: Hydralazine HCl (Apresoline) 10 mg IV Q4HR PRN PRN Reason: sbp above 180 Last Admin: 02/12/19 22:18 Dose: 10 mg Documented by: Sodium Chloride (Nacl 0.45% 1000 Ml) 1,000 mls @ 75 mls/hr IV DIRECT [facility] Last Admin: 02/14/19 09:35 Dose: 42 mls/hr Documented by: Insulin Human Lispro (Humalog) 0 unit SUB-Q ACHS [facility]; Protocol Last Admin: 02/14/19 13:09 Dose: 2 unit Documented by: Ondansetron HCl (Zofran) 4 mg IV Q6H PRN PRN Reason: Nausea And Vomiting Sodium Chloride (Sodium Chloride Flush Syringe 10 Ml) 10 ml IV BID [facility] Last Admin: 02/14/19 09:44 Dose: 10 ml Documented by: Sodium Chloride (Sodium Chloride Flush Syringe 10 Ml) 10 ml IV PRN PRN PRN Reason: LINE FLUSH Physical Examination - Physical Exam Narrative exam: Physical Exam: Constitutional: Alert, cooperative. No acute distress Head, Ears, Nose: Normocephalic, atraumatic. External ears, nose normal Eyes: Conjunctivae/corneas clear. No icterus. No ptosis. Neck: Supple, no meningeal signs. Oral: no thrush, no ulcers Cardiovascular: S1, S2 normal. Respiratory: Good air entry, clear to auscultation bilaterally GI: Soft, non-tender; bowel sounds normal. No peritoneal signs Musculoskeletal: No pedal edema, no cyanosis. Left 2nd toe with partial amputation, sutures +, dry blackish eschar +, no redness, tenderness or draina ge. HD cath + Skin: No rash or abscess Hem/Lymphatic: No palpable cervical or supraclavicular nodes. No lymphangitis Psych: Mood ok. Affect normal Neurological: Awake, alert, oriented. No gross abnormality - Constitutional Vitals: Vital Signs Temp Pulse Resp BP Pulse Ox 98.4 F 89 18 172/82 99 02/14/19 08:13 02/14/19 13:10 02/14/19 08:13 02/14/19 13:10 02/14/19 08:13 Temperature -Last 24 Hours Temperature 98.4 F Temperature 98.2 F Temperature 98.5 F Temperature 98.4 F Temperature 98.0 F Results - Labs CBC & Chem 7: 02/13/19 04:33 02/14/19 06:36 Labs: Abnormal lab results 02/13/19 02/13/19 02/13/19 Range/Units 13:17 13:45 17:23 Sodium (137-145) mmol/L Carbon Dioxide (22-30) mmol/L BUN (7-17) mg/dL Creatinine (0.7-1.2) mg/dL Glucose (65-100) mg/dL POC Glucose 151 H 167 H (70-105) Urine WBC (Auto) 10.0 H (0.0-6.0) /HPF 02/13/19 02/14/19 02/14/19 Range/Units 21:33 06:36 08:21 Sodium 136 L (137-145) mmol/L Carbon Dioxide 20 L (22-30) mmol/L BUN 39 H (7-17) mg/dL Creatinine 5.6 H (0.7-1.2) mg/dL Glucose 110 H (65-100) mg/dL POC Glucose 157 H 112 H (70-105) Urine WBC (Auto) (0.0-6.0) /HPF 02/14/19 Range/Units 12:56 Sodium (137-145) mmol/L Carbon Dioxide (22-30) mmol/L BUN (7-17) mg/dL Creatinine (0.7-1.2) mg/dL Glucose (65-100) mg/dL POC Glucose 169 H (70-105) Urine WBC (Auto) (0.0-6.0) /HPF - Imaging and Cardiology Chest x-ray: report reviewed, image reviewed (b/l effusions and interstitial edema) Assessment and Plan Cultures: 02/08/2019 blood cultures: No growth 02/09/2019 MRSA nasal culture: Negative 02/09/2019 urine culture: Mixed eze 02/13/2019 urine culture: No growth MRI left foot here shows soft tissue irregularity of the stump of the second toe with probable underlying osteomyelitis of the remaining middle phalanx, no abscess, possible cellulitis. Outside records and cultures reviewed. A/P: 73-year-old female with diabetes mellitus, hypertension, peripheral vascular disease who is known to us from her recent hospitalization at [facility] with acute osteomyelitis of the left foot second toe distal phalanx, now admitted with SOB and CHF: 1) Left second toe suspected acute osteomyelitis of distal phalanx: she underwent left second toe distal tip amputation on 01/31/2019 at [facility]. Deep cultures from OR grew MSSA, pathology was positive for acute and chronic inflammation but negative for definite of acute osteomyelitis. She received IV antibiotics while in the hospital and then was discharged on oral Ceftin for 7 days. MRI here read as probable osteomyelitis (based on mild reactive edema), however, in my opinion, it is reflective of bone remodeling following amputation v/s post surgical change. Continue wound care, needs to follow up with her manager heart upon discharge. Doesn't need additional abx. 2) Peripheral vascular disease 3) Acute congestive heart failure: Cardiology following. Patient received diuretics. 4) Acute renal failure: Now has HD catheter in place. Her creatinine on the day of discharge at [facility] was 2.1, baseline creatinine ranged between 0.5- 0.8 about 2 weeks ago. Nephrology following. Initial PUSHPA was presumed to be from supratherapeutic vancomycin. 5) Asymptomatic bacteruria: no fever, no urinary burning, UA and urine culture contaminated. No abx needed. Recs: Continue wound care, needs to follow up with her manager heart upon discharge. Doesn't need additional abx D/W Dr. Carson. Blake Stahl MD, [facility] M: [phone] O: [phone] F: [phone]
--- NOTE | 2019-02-14 14:06 | Progress Note ---
Assessment and Plan - Patient Problems (1) Type 2 diabetes mellitus with foot ulcer Current Visit: Yes Status: Acute Plan to address problem: 1) Pt can be discharged from my perspective. 2) She should f/u with her Leak Gang Supervisor or can also f/u with the [facility]. Subjective Date of service: 02/14/19 Patient Reports: Positive: no new complaints Objective Vital Signs - 12hr 02/14/19 02/14/19 02/14/19 04:13 08:13 09:37 Temperature 98.2 F 98.4 F Pulse Rate 87 91 H 91 H Respiratory 18 18 Rate Blood Pressure 150/78 171/87 171/87 O2 Sat by Pulse 97 99 Oximetry 02/14/19 13:10 Temperature Pulse Rate 89 Respiratory Rate Blood Pressure 172/82 O2 Sat by Pulse Oximetry - Integumentary other (No change in appearance of left 2nd toe.) - Labs 02/13/19 04:33 02/14/19 06:36 Diabetes panel 02/14/19 Range/Units 06:36 Sodium 136 L (137-145) mmol/L Potassium 3.8 (3.6-5.0) mmol/L Chloride 100.5 (98-107) mmol/L Carbon Dioxide 20 L (22-30) mmol/L BUN 39 H (7-17) mg/dL Creatinine 5.6 H (0.7-1.2) mg/dL Glucose 110 H (65-100) mg/dL Calcium 8.5 (8.4-10.2) mg/dL Calcium panel 02/14/19 Range/Units 06:36 Calcium 8.5 (8.4-10.2) mg/dL Pituitary panel 02/14/19 Range/Units 06:36 Sodium 136 L (137-145) mmol/L Potassium 3.8 (3.6-5.0) mmol/L Chloride 100.5 (98-107) mmol/L Carbon Dioxide 20 L (22-30) mmol/L BUN 39 H (7-17) mg/dL Creatinine 5.6 H (0.7-1.2) mg/dL Glucose 110 H (65-100) mg/dL Calcium 8.5 (8.4-10.2) mg/dL Adrenal panel 02/14/19 Range/Units 06:36 Sodium 136 L (137-145) mmol/L Potassium 3.8 (3.6-5.0) mmol/L Chloride 100.5 (98-107) mmol/L Carbon Dioxide 20 L (22-30) mmol/L BUN 39 H (7-17) mg/dL Creatinine 5.6 H (0.7-1.2) mg/dL Glucose 110 H (65-100) mg/dL Calcium 8.5 (8.4-10.2) mg/dL - Imaging Additional Studies: Arterial dopplers without evidence of PAD MRI, left foot - See report. I have read Dr. Stahl's (ID) note.
[2019-02-15 05:52] LABS: Calcium 8.6 mg/dL (8.4-10.2)
[2019-02-15] MEDS: HumaLOG SUB-Q SCH ×4 (07:30→22:37)
[2019-02-15] MEDS: COLACE PO SCH ×2 (09:53→22:44)
[2019-02-15] MEDS: BABY ASPIRIN PO SCH (09:53)
[2019-02-15] MEDS: NORVASC PO SCH (09:53)
[2019-02-15] MEDS: HEPARIN SUB-Q SCH ×2 (09:54→22:44)
[2019-02-15] MEDS: SODIUM CHLORIDE FLUSH SYRINGE 10 ML IV SCH ×2 (09:57→22:51)
--- NOTE | 2019-02-15 10:28 | Progress Note ---
Assessment and Plan Cultures: 02/08/2019 blood cultures: No growth 02/09/2019 MRSA nasal culture: Negative 02/09/2019 urine culture: Mixed eze 02/13/2019 urine culture: No growth MRI left foot here shows soft tissue irregularity of the stump of the second toe with probable underlying osteomyelitis of the remaining middle phalanx, no abscess, possible cellulitis. Outside records and cultures reviewed. A/P: 73-year-old female with diabetes mellitus, hypertension, peripheral vascular disease who is known to us from her recent hospitalization at [facility] with acute osteomyelitis of the left foot second toe distal phalanx, now admitted with SOB and CHF: 1) Left second toe suspected acute osteomyelitis of distal phalanx: she underwent left second toe distal tip amputation on 01/31/2019 at [facility]. Deep cultures from OR grew MSSA, pathology was positive for acute and chronic inflammation but negative for definite of acute osteomyelitis. She received IV antibiotics while in the hospital and then was discharged on oral Ceftin for 7 days. MRI here read as probable osteomyelitis (based on mild reactive edema), however, in my opinion, it is reflective of bone remodeling following amputation v/s post surgical change. Continue wound care, needs to follow up with her podia trist upon discharge. Doesn't need additional abx. 2) Peripheral vascular disease 3) Acute congestive heart failure: Cardiology following. Patient received diuretics. 4) Acute renal failure: Now has HD catheter in place. Her creatinine on the day of discharge at [facility] was 2.1, baseline creatinine ranged between 0.5- 0.8 about 2 weeks ago. Nephrology following. Initial PUSHPA was presumed to be from supratherapeutic vancomycin. 5) Asymptomatic bacteruria: no fever, no urinary burning, UA and urine culture contaminated. No abx needed. Recs: Continue wound care, needs to follow up with her asphalt spreader upon discharge. Doesn't need additional abx ID is singing off, Please call for questions. [facility] M: [phone] O:[phone] Subjective Date of service: 02/15/19 Principal diagnosis: acute kidney injury Interval history: Patient seen and examined. Daughter at bedside. Reports no acute distress. No fevers. Objective - Exam Narrative Exam: Constitutional: Alert, cooperative. No acute distress Head, Ears, Nose: Normocephalic, atraumatic. External ears, nose normal Eyes: Conjunctivae/corneas clear. No icterus. No ptosis. Neck: Supple, no meningeal signs. Oral: no thrush, no ulcers Cardiovascular: S1, S2 normal. Respiratory: Good air entry, clear to auscultation bilaterally GI: Soft, non-tender; bowel sounds normal. No peritoneal signs Musculoskeletal: No pedal edema, no cyanosis. Left 2nd toe with partial amputation, sutures +, dry blackish eschar +, no redness, tenderness or drainage. HD cath + Skin: No rash or abscess Hem/Lymphatic: No palpable cervical or supraclavicular nodes. No lymphangitis Psych: Mood ok. Affect normal Neurological: Awake, alert, oriented. No gross abnormality - Constitutional Vitals: Vital Signs Temp Pulse Resp BP Pulse Ox 98.3 F 90 16 150/78 97 02/15/19 08:22 02/15/19 09:53 02/15/19 08:22 02/15/19 09:53 02/15/19 08:22 Temperature -Last 24 Hours Temperature 98.3 F Temperature 98.1 F Temperature 98.2 F Temperature 98.1 F Temperature 98.2 F - Labs CBC & Chem 7: 02/13/19 04:33 02/15/19 05:01 Labs: Abnormal lab results 02/14/19 02/14/19 02/14/19 Range/Units 12:56 16:33 21:18 Sodium (137-145) mmol/L BUN (7-17) mg/dL Creatinine (0.7-1.2) mg/dL Glucose (65-100) mg/dL POC Glucose 169 H 66 L 132 H (70-105) 02/15/19 02/15/19 Range/Units 05:01 08:27 Sodium 136 L (137-145) mmol/L BUN 37 H (7-17) mg/dL Creatinine 5.6 H (0.7-1.2) mg/dL Glucose 116 H (65-100) mg/dL POC Glucose 115 H (70-105)
--- NOTE | 2019-02-15 13:53 | Progress Note ---
Assessment and Plan Impression: * Acute kidney injury secondary to ATN vs AIN (less likely AIN given lack of peripheral eosinophilia) --Renal ultrasound: right kidney is 12.3 cm, left kidney is 12.9 cm in length. There is no hydronephrosis (Jan 2019 - [facility]) --SCr 0.95mg/dL on Jan 29, 2019 --Hx of PUSHPA at [facility] - SCr 2.17mg/dL at discharge (SCr was trending up at ms) * Pulmonary edema --TTE: LV normal size. Nmll LV wall thickness. LV wall motion nml. EF > 55%. LVEF nml. Nml LV diastolic function (Feb 04 at [facility]). * Acute osteomyelitis of the left foot second toe distal phalanx (MRI Jan 30 2019 @ [facility]) * Type II DM * Hypertension Plan: * Records from [facility] reviewed - PUSHPA was attributed to ATN related to vancomycin per nephrology group following her at that time. SCr was worsening at time of discharge. PUSHPA likely ongoing, continuation from initial insult at previous hospitalization with presumed tubular injury * Renal prognosis remains guarded. Creatinine appears to have plateaued, and am hopeful for tubular recovery in coming days and ultimate improvement of PUSHPA. Can plan for discharge and outpatient follow up if creatinine improves. Respiratory status stable. * Advised of possibility of requiring dialysis (via intrepreter) in coming days; patient with vas-cath when needed. No indication for acute renal replacement therapy today and hopeful for recovery as noted above * continue to follow Strict I/O (not all urine output seems to have been d ocumented from overnight). Addressed with devulcanizer charger, RN and PCT. * Continue IVF for hydration - 0.45% NS 75ml/hour * Continue to hold diuretics * Continue to hold ACEi * Avoid potential nephrotoxins * Dose medications for renal function Subjective Date of service: 02/15/19 Principal diagnosis: acute kidney injury Interval history: no acute events overnight. patient without any new complaints- notes normal br eathing, no chest pain, no lower extremity edema. patient notes that her breathing is better than yesterday, and continues to urinate Objective - Exam Narrative Exam: General appearance: well-developed, well-nourished EENT: atraumatic Respiratory: Clear to Auscultation bilaterally, off nasal cannula Cardiology: regular, S1S2, no lower extremity edema Gastrointestinal: normal, no distended, no masses Neurologic: no focal deficit Psychiatric: cooperative - Vital Signs Vital signs: Vital Signs - 12hr 02/15/19 02/15/19 02/15/19 04:16 08:22 09:53 Temperature 98.1 F 98.3 F Pulse Rate 95 H 95 H 90 Respiratory 20 16 Rate Respiratory Rate [Right Upper Abdomen] Blood Pressure 130/76 150/68 150/78 O2 Sat by Pulse 98 97 Oximetry 02/15/19 10:00 Temperature Pulse Rate Respiratory Rate Respiratory 20 Rate [Right Upper Abdomen] Blood Pressure O2 Sat by Pulse Oximetry - Lab 02/13/19 04:33 02/15/19 05:01 Most recent lab results Calcium 8.6 mg/dL (8.4-10.2) 02/15/19 05:01 Medications & Allergies - Medications Allergies/Adverse Reactions: Allergies No Known Allergies Allergy (Verified 11/11/17 20:53) Home Medications: Home Medications Medication Instructions Recorded Confirmed Last Taken Type amLODIPine [Norvasc] 5 mg PO DAILY 03/09/17 02/08/19 02/08/19 History metFORMIN [Glucophage] 500 mg PO BID 03/09/17 02/08/19 02/08/19 History Active Medications: Generic Name Dose Route Start Last Admin Trade Name Freq PRN Reason Stop Dose Admin Acetaminophen 650 mg 02/08/19 22:15 02/12/19 19:33 Tylenol PO 650 mg Q4H PRN Administration Pain MILD(1-3)/Fever >100.5/WHITEHEAD Amlodipine Besylate 10 mg 02/15/19 10:00 02/15/19 09:53 Norvasc PO 10 mg QDAY ALESSANDRO Administration Aspirin 81 mg 02/14/19 10:00 02/15/19 09:53 Baby Aspirin PO 81 mg QDAY ALESSANDRO Administration Dextrose 50 ml 02/08/19 22:15 02/10/19 01:10 D50w (25gm) Syringe IV 50 ml PRN PRN Administration Hypoglycemia Docusate Sodium 100 mg 02/09/19 10:00 02/15/19 09:53 Colace PO 100 mg BID ALESSANDRO Administration Heparin Sodium (Porcine) 5,000 unit 02/09/19 10:00 02/15/19 09:54 Heparin SUB-Q 5,000 unit Q12HR ALESSANDRO Administration Hydralazine HCl 10 mg 02/11/19 08:56 08/19/19 22:18 Apresoline IV 10 mg Q4HR PRN Administration sbp above 180 Sodium Chloride 1,000 mls @ 75 mls/hr 02/10/19 10:00 02/14/19 22:09 Nacl 0.45% 1000 Ml IV 42 mls/hr DIRECT ALESSANDRO Administration Insulin Human Lispro 0 unit 02/09/19 07:30 02/15/19 07:30 Humalog SUB-Q Not Given ACHS ALESSANDRO Protocol Ondansetron HCl 4 mg 02/08/19 22:15 Zofran IV Q6H PRN Nausea And Vomiting Sodium Chloride 10 ml 02/09/19 10:00 02/15/19 09:57 Sodium Chloride Flush Syringe 10 Ml IV 10 ml BID ALESSANDRO Administration Sodium Chloride 10 ml 02/08/19 22:15 Sodium Chloride Flush Syringe 10 Ml IV PRN PRN LINE FLUSH
--- NOTE | 2019-02-15 16:40 | Progress Note ---
Assessment and Plan Assessment and plan: tamika is a 63 -year-old Serbian speaking woman with a history of hypertension, DM, Diabetic foot ulcer status post debridement of left second toe d/t (one week ago at [facility]) who presents to [facility] ED with complaints of generalized weakness, dizziness, chest pain and sob. CT Head negative for acute intracranial abnormalities. * V/Q Scan: FINDINGS: Normal wash-in and washout of xenon radiotracer. No mismatch perfusion defect identified. IMPRESSION: Low probability for PTE * CT Head: Findings: BRAIN/INTRACRANIAL STRUCTURES: Unenhanced CT images of the brain demonstrate no evidence of acute intracranial abnormality. Ventricles and sulci are normal in size and shape. There is no evidence of acute ischemic injury, hemorrhage, or mass. An old appearing left basal ganglia lacunar infarct is noted. This was not present at the time the prior exam,. Air-fluid levels are present in the maxillary sinuses bilaterally. The prior exam demonstrated right-sided sinus opacification only. There is prominent mucosal thickening also now present in the right frontal sinus, similar to the prior exam. EXTRACRANIAL STRUCTURES: Unremarkable. Impression: No acute intracranial abnormality. Paranasal sinus disease, including bilateral maxillary sinus air- fluid levels. * 2D ECHO conclusions: Normal cardiac chamber dimensions, LVEF 50-55%, normal RVSF, mild TR, small pericardial effusion that does not appear to be hemodynamically significant, moderate left pleural effusion * pCXR lungs with bilateral interstitial edema and pleural effusions Acute diastolic HF -diastolic heart failure, -BNP elevated at 5451 -IV diuretics on hold due to worsening renal function. -Cardiology consulted and input noted Cardiogenic Shock, resolved -Hold anti hypertensive meds -Started on dobutamine drip now off -Continue to monitor BP Acute hypoxic Respiratory Failure, resolved, off o2 -No baseline home oxygen requirements -weaned off supplemental O2 -Respiratory assess and treat per protocol ruled out PE -Elevated D-Dimer -V/Q scan showed Low probability for PTE Acute kidney failure likely due to ATN vasomotor nephropathy from cardiogenic shock, cardiorenal syndrome, poa -additional history garnered from Dr. Medina, basically ARF from ATN/Vancomycin and was worsening when d/c from [facility] and this worsening progression is from initial insult at prior hospitalization at [facility] -Cr on admission 3.1 with GFR 15 now upto 5.6 and stable, anticipate discontinuation of dialysis access in am if continued stable and discharge -family agreeable to continued outpatient follow up with nephrology -Nephrology consult -Avoid nephro toxic agents -Renal dose all meds Leukocytosis -Resolved -monitor cbc closely -pt is afebrile, with no UTI as UA specimen contaminated with epithelial cells which was confirmed by urine cultures -BC negative -Thermometer Production Worker started iv rocephin--Consulted ID -Continue to monitor for now; Necrotic 2nd left toes with sutures in place, done at [facility] -Wound care consult -Consult Surgery. No surgery at this time. OUTPT EVAL Mild to Moderate Malnutrition -BMI -Albumin 3.2 -Dietitian consult pending DM2 -POC BG monitoring -HgbA1c 6.1 -SSI Coverage Anemia of chronic disease -Hgb on admission 8.5 -no s/s of active bleeding -Monitor Hgb, transfuse prn Suspect DM Retinopathy, patient is basically blind for about 1 month now. When I handed the patient the [employer] line phone she couldn't see it and proceeded to tell me she has been having blurred vision for about 1 month now. -Ophthal outpatient referral upon discharge (none here) DVT PPX -on heparin disposition: continue inpatient care, problem is the documentation of I/Os yesterday made it appear she made no urine as recorded as 0 for urine output which is not accurate. Nonetheless, if Cr worsened tomorrow then HD will be started. d/w Thermometer Production Worker Dr. Medina===>today cr is worse, make npo, consult Vascular to evaluate for HD line placement 02/12/19 Vas Cath placed, HD for tomorrow if Cr worsen per Dr. Otis Ceron, Thermometer Production Worker History Interval history: Patient seen and examined, no new complaints. Resting comfortable, sister at bedside Hospitalist Physical - Physical exam Narrative exam: Gen: WDWN, NAD, Awake, Alert, Oriented HEENT: NCAT, EOMI, PERRL, OP Clear Neck: supple, no adenopathy, no thyromegaly, no JVD CVS/Heart: RRR, normal S1S2, pulses present bilaterally Chest/Lungs: bibasilar crackles, Symmetrical chest expansion, good air entry bilaterally GI/Abdomen: soft, NTND, good bowel sounds, no guarding or rebound /Bladder: no suprapubic tenderness, no CVA or paraspinal tenderness Extermity/Skin: left second toe with necrosis with suture, no c/c/e, no other obvious rash MSK: FROM x 4 Neuro: CN 2-12 grossly intact except vision, no new focal deficits Psych: calm - Constitutional Vitals: Temp Pulse Resp BP Pulse Ox 98.4 F 68 18 128/78 92 02/15/19 11:55 02/15/19 11:55 02/15/19 11:55 02/15/19 11:55 02/15/19 11:55 General appearance: Present: no acute distress Results - Labs CBC & Chem 7: 02/13/19 04:33 02/15/19 05:01 Labs: Laboratory Last Values WBC 9.7 K/mm3 (4.5-11.0) 02/13/19 04:33 RBC 2.81 M/mm3 (3.65-5.03) L 02/13/19 04:33 Hgb 8.7 gm/dl (10.1-14.3) L 02/13/19 04:33 Hct 26.0 % (30.3-42.9) L 02/13/19 04:33 MCV 93 fl (79-97) 02/13/19 04:33 MCH 31 pg (28-32) 02/13/19 04:33 MCHC 34 % (30-34) 02/13/19 04:33 RDW 14.9 % (13.2-15.2) 02/13/19 04:33 Plt Count 209 K/mm3 (140-440) 02/13/19 04:33 Lymph % (Auto) 8.9 % (13.4-35.0) L 02/09/19 04:42 Lamb % (Auto) 9.0 % (0.0-7.3) H 02/09/19 04:42 Eos % (Auto) 0.4 % (0.0-4.3) 02/09/19 04:42 Baso % (Auto) 0.3 % (0.0-1.8) 02/09/19 04:42 Lymph # 1.4 K/mm3 (1.2-5.4) 02/09/19 04:42 Lamb # 1.5 K/mm3 (0.0-0.8) H 02/09/19 04:42 Eos # 0.1 K/mm3 (0.0-0.4) 02/09/19 04:42 Baso # 0.0 K/mm3 (0.0-0.1) 02/09/19 04:42 Seg Neutrophils % 81.4 % (40.0-70.0) H 02/09/19 04:42 Seg Neutrophils # 13.2 K/mm3 (1.8-7.7) H 02/09/19 04:42 APTT 30.1 Sec. (24.2-36.6) 02/08/19 17:14 890.59 ng/mlDDU (0-234) H 02/08/19 17:14 Sodium 136 mmol/L (137-145) L 02/15/19 05:01 Potassium 3.9 mmol/L (3.6-5.0) 02/15/19 05:01 Chloride 99.1 mmol/L (98-107) 02/15/19 05:01 Carbon Dioxide 23 mmol/L (22-30) 02/15/19 05:01 18 mmol/L 02/15/19 05:01 BUN 37 mg/dL (7-17) H 02/15/19 05:01 5.6 mg/dL (0.7-1.2) H 02/15/19 05:01 Estimated GFR 8 ml/min 02/15/19 05:01 7 % 02/15/19 05:01 Glucose 116 mg/dL (65-100) H 02/15/19 05:01 POC Glucose 148 (70-105) H 02/15/19 11:48 6.1 % (4-6) H 02/08/19 16:25 Lactic Acid 0.80 mmol/L (0.7-2.0) 02/08/19 21:00 Calcium 8.6 mg/dL (8.4-10.2) 02/15/19 05:01 0.40 mg/dL (0.1-1.2) 02/08/19 16:26 AST 46 units/L (5-40) H 02/08/19 16:26 ALT 43 units/L (7-56) 02/08/19 16:26 123 units/L (35-129) 02/08/19 16:26 0.016 ng/mL (0.00-0.029) 02/09/19 04:42 NT-Pro-B Natriuret Pep 5451 pg/mL (0-900) H 02/08/19 16:26 6.9 g/dL (6.3-8.2) 02/08/19 16:26 3.2 g/dL (3.9-5) L 02/08/19 16:26 0.9 % 02/08/19 16:26 Shelli (Yellow) 02/09/19 03:45 Straw (Yellow) 02/09/19 03:45 Clear (Clear) 02/09/19 03:45 Cloudy (Clear) 02/09/19 03:45 5.0 (5.0-7.0) 02/09/19 03:45 6.0 (5.0-7.0) 02/09/19 03:45 Ur Specific [place] 1.006 (1.003-1.030) 02/09/19 03:45 Ur Specific [place] 1.013 (1.003-1.030) 02/09/19 03:45 30 mg/dl mg/dL (Negative) 02/09/19 03:45 <15 mg/dl mg/dL (Negative) 02/09/19 03:45 Neg mg/dL (Negative) 02/09/19 03:45 Neg mg/dL (Negative) 02/09/19 03:45 Neg mg/dL (Negative) 02/09/19 03:45 Neg mg/dL (Negative) 02/09/19 03:45 Sm (Negative) 02/09/19 03:45 Sm (Negative) 02/09/19 03:45 Neg (Negative) 02/09/19 03:45 Neg (Negative) 02/09/19 03:45 Neg (Negative) 02/09/19 03:45 Neg (Negative) 02/09/19 03:45 < 2.0 mg/dL (<2.0) 02/09/19 03:45 < 2.0 mg/dL (<2.0) 02/09/19 03:45 Ur Leukocyte Esterase Lg (Negative) 02/09/19 03:45 Ur Leukocyte Esterase Neg (Negative) 02/09/19 03:45 10.0 /HPF (0.0-6.0) H 02/13/19 13:45 38.0 /HPF (0.0-6.0) 02/13/19 13:45 U Epithel Cells (Auto) 8.0 /HPF (0-13.0) 02/13/19 13:45 1+ /HPF (Negative) 02/13/19 13:45 Few /HPF 02/09/19 03:45 Ur Transition Epith Cell 2 /HPF 02/13/19 13:45 Few /HPF 02/13/19 13:45 None seen (None Seen) 02/10/19 Unknown 125 mg/dL (83-193) 02/10/19 07:59 38 mg/dL (15-57) 02/10/19 07:59 Active Medications - Current Medications Current Medications: Generic Name Dose Route Start Last Admin Trade Name Freq PRN Reason Stop Dose Admin Acetaminophen 650 mg 02/08/19 22:15 02/12/19 19:33 Tylenol PO 650 mg Q4H PRN Administration Pain MILD(1-3)/Fever >100.5/WHITEHEAD Amlodipine Besylate 10 mg 02/15/19 10:00 02/15/19 09:53 Norvasc PO 10 mg QDAY ALESSANDRO Administration Aspirin 81 mg 02/14/19 10:00 02/15/19 09:53 Baby Aspirin PO 81 mg QDAY ALESSANDRO Administration Dextrose 50 ml 02/08/19 22:15 02/10/19 01:10 D50w (25gm) Syringe IV 50 ml PRN PRN Administration Hypoglycemia Docusate Sodium 100 mg 02/09/19 10:00 02/15/19 09:53 Colace PO 100 mg BID ALESSANDRO Administration Heparin Sodium (Porcine) 5,000 unit 02/09/19 10:00 02/15/19 09:54 Heparin SUB-Q 5,000 unit Q12HR ALESSANDRO Administration Hydralazine HCl 10 mg 02/11/19 08:56 02/12/19 22:18 Apresoline IV 10 mg Q4HR PRN Administration sbp above 180 Sodium Chloride 1,000 mls @ 75 mls/hr 02/10/19 10:00 02/14/19 22:09 Nacl 0.45% 1000 Ml IV 42 mls/hr DIRECT ALESSANDRO Administration Insulin Human Lispro 0 unit 02/09/19 07:30 02/15/19 11:30 Humalog SUB-Q Not Given ACHS ALESSANDRO Protocol Ondansetron HCl 4 mg 02/08/19 22:15 Zofran IV Q6H PRN Nausea And Vomiting Sodium Chloride 10 ml 02/09/19 10:00 02/15/19 09:57 Sodium Chloride Flush Syringe 10 Ml IV 10 ml BID ALESSANDRO Administration Sodium Chloride 10 ml 02/08/19 22:15 Sodium Chloride Flush Syringe 10 Ml IV PRN PRN LINE FLUSH Nutrition/Malnutrition Assess - Dietary Evaluation Nutrition/Malnutrition Findings: Nutrition Notes Start: 02/15/19 14:57 Freq: Status: Active Protocol: Document 02/15/19 14:57 RM (Rec: 02/15/19 15:07 RM [id number]) Nutrition Notes Need for Assessment generated from: LOS Initial or Follow up Assessment Current Diagnosis Acute Kidney Injury,Diabetes, Heart Failure Other Pertinent Diagnosis L foot toe diabetic ulcer Current Diet Renal Labs/Tests Reviewed Pertinent Medications Reviewed Height 5 ft 6 in Weight 80.3 kg Sod Body Weight (kg) 59.09 BMI 28.5 Subjective/Other Information Screened for LOS. Pt and pt daughter in law in room at time of visit. Pt only speaks uzbek. Pt daughter in law acted as heel cover splitter. Pt stated that she is eating either half of her meals or none depending on what she receives. Stated that she does want much meat and does not want hamburger or pork at all. Percent of energy/protein needs met: 30%/20% Burn Absent Trauma Absent #1 Nutrition Diagnosis Inadequate oral intake Etiology food preferences As Evidenced by Signs and Symptoms pt statement that she eats either half or none of her meals Is patient on ventilator? No Is Patient Ambulatory and/or Out of Bed Yes REE-([facility]-ambulatory/OOB) [ 1793.675 [id number]] Calculation Used for Recommendations [facility] Additional Notes Protein Needs: 96-120g (1.2-1. 5g/kg) Fluid Needs: 1 ml/kcal Nutrition Intervention Change Diet Order: Continue current Add Supplement/Snack (indicate name/kcal Nepro Mixed Bhakta 1 daily /protein ) Provides kCal: 425 Provides Protein (gm) 19 Goal #1 Meet at least 75% of calorie and protein needs via PO and ONS intakes Anticipated Discharge Needs: Renal diet Follow-Up By: 02/19/19 Additional Comments Follow for PO and ONS intakes
[2019-02-15 23:36] LABS: Myeloperoxidase Antibody <1.0 AI (<1.0)
[2019-02-16 05:46] LABS: Calcium 8.7 mg/dL (8.4-10.2)
[2019-02-16] MEDS: NACL 0.45% 1000 ML 1,000 ML IV SCH (05:46)
[2019-02-16] MEDS: HumaLOG SUB-Q SCH ×4 (07:30→21:33)
[2019-02-16] MEDS: HEPARIN SUB-Q SCH ×2 (10:10→21:21)
[2019-02-16] MEDS: BABY ASPIRIN PO SCH (10:11)
[2019-02-16] MEDS: COLACE PO SCH ×2 (10:11→21:21)
[2019-02-16] MEDS: NORVASC PO SCH (10:11)
[2019-02-16] MEDS: SODIUM CHLORIDE FLUSH SYRINGE 10 ML IV SCH ×2 (10:12→21:21)
--- NOTE | 2019-02-16 11:37 | Progress Note ---
Assessment and Plan Impression: * Acute kidney injury secondary to ATN vs AIN (less likely AIN given lack of peripheral eosinophilia) --Renal ultrasound: right kidney is 12.3 cm, left kidney is 12.9 cm in length. There is no hydronephrosis (Jan 2019 - [facility]) --SCr 0.95mg/dL on Jan 29, 2019 --Hx of PUSHPA at [facility] - SCr 2.17mg/dL at discharge (SCr was trending up at mi) * Pulmonary edema --TTE: LV normal size. Nml LV wall thickness. LV wall motion nml. EF > 55%. LVEF nml. Nml LV diastolic function (Feb 04 at [facility]). * Acute osteomyelitis of the left foot second toe distal phalanx (MRI Jan 30 2019 @ [facility]) * Type II DM * Hypertension Plan: * Records from [facility] reviewed - PSUHPA was attributed to ATN related to vancomycin per nephrology group following her at that time. SCr was worsening at time of discharge. PUSHPA likely ongoing, continuation from initial insult at previous hospitalization with presumed tubular injury * Renal prognosis remains guarded. Creatinine appears to have plateaued with slow improvement in BUN, and am hopeful for tubular recovery in coming days and ultimate improvement of PUSHPA. Can plan for discharge and outpatient follow up if creatinine improves. Respiratory status stable. * Advised of possibility of requiring dialysis (via intrepreter) in coming days; patient with vas-cath when needed. No indication for acute renal replacement therapy today and hopeful for recovery as noted above * continue to follow Strict I/O (not all urine output seems to have been documented from overnight). Addressed with charger operator, RN and PCT. * Continue IVF for hydration - 0.45% NS 75ml/hour * Continue to hold diuretics * Continue to hold ACEi * Avoid potential nephrotoxins * Dose medications for renal function Subjective Date of service: 02/16/19 Principal diagnosis: acute kidney injury Interval history: no acute events overnight. patient without any new complaints- notes normal breathing, no chest pain, no lower extremity edema. family at bedside and denies any further questions Objective - Exam Narrative Exam: General appearance: well-developed, well-nourished EENT: atraumatic Respiratory: Clear to Auscultation bilaterally, off nasal cannula Cardiology: regular, S1S2, no lower extremity edema Gastrointestinal: normal, no distended, no masses Neurologic: no focal deficit Psychiatric: cooperative - Vital Signs Vital signs: Vital Signs - 12hr 02/15/19 02/16/19 23:57 04:56 Temperature 98.6 F 97.6 F Pulse Rate 98 H 89 Respiratory 16 16 Rate Blood Pressure 137/74 129/69 O2 Sat by Pulse 91 93 Oximetry - Lab 02/13/19 04:33 02/16/19 05:07 Most recent lab results Calcium 8.7 mg/dL (8.4-10.2) 02/16/19 05:07 Medications & Allergies - Medications Allergies/Adverse Reactions: Allergies No Known Allergies Allergy (Verified 11/11/17 20:53) Home Medications: Home Medications Medication Instructions Recorded Confirmed Last Taken Type amLODIPine [Norvasc] 5 mg PO DAILY 03/09/17 02/08/19 02/08/19 History metFORMIN [Glucophage] 500 mg PO BID 03/09/17 02/08/19 02/08/19 History Active Medications: Generic Name Dose Route Start Last Admin Trade Name Freq PRN Reason Stop Dose Admin Acetaminophen 650 mg 02/08/19 22:15 02/12/19 19:33 Tylenol PO 650 mg Q4H PRN Administration Pain MILD(1-3)/Fever >100.5/WHITEHEAD Amlodipine Besylate 10 mg 02/15/19 10:00 02/16/19 10:11 Norvasc PO 10 mg QDAY ALESSANDRO Administration Aspirin 81 mg 02/14/19 10:00 02/16/19 10:11 Baby Aspirin PO 81 mg QDAY ALESSANDRO Administration Dextrose 50 ml 02/08/19 22:15 02/10/19 01:10 D50w (25gm) Syringe IV 50 ml PRN PRN Administration Hypoglycemia Docusate Sodium 100 mg 02/09/19 10:00 02/16/19 10:11 Colace PO 100 mg BID ALESSANDRO Administration Heparin Sodium (Porcine) 5,000 unit 02/09/19 10:00 02/16/19 10:10 Heparin SUB-Q 5,000 unit Q12HR ALESSANDRO Administration Hydralazine HCl 10 mg 02/11/19 08:56 02/12/19 22:18 Apresoline IV 10 mg Q4HR PRN Administration sbp above 180 Sodium Chloride 1,000 mls @ 75 mls/hr 02/10/19 10:00 02/16/19 06:55 Nacl 0.45% 1000 Ml IV 42 mls/hr DIRECT ALESSANDRO Infusion Insulin Human Lispro 0 unit 02/09/19 07:30 02/16/19 07:30 Humalog SUB-Q 2 unit ACHS ALESSANDRO Administration Protocol Ondansetron HCl 4 mg 02/08/19 22:15 Zofran IV Q6H PRN Nausea And Vomiting Sodium Chloride 10 ml 02/09/19 10:00 02/16/19 10:12 Sodium Chloride Flush Syringe 10 Ml IV 10 ml BID ALESSANDRO Administration Sodium Chloride 10 ml 02/08/19 22:15 02/15/19 22:45 Sodium Chloride Flush Syringe 10 Ml IV 10 ml PRN PRN Administration LINE FLUSH
--- NOTE | 2019-02-16 15:11 | Progress Note ---
Assessment and Plan Assessment and plan: tamika is a 63 -year-old Luxembourgish speaking woman with a history of hypertension, DM, Diabetic foot ulcer status post debridement of left second toe d/t (one week ago at [facility]) who presents to [facility] ED with complaints of generalized weakness, dizziness, chest pain and sob. CT Head negative for acute intracranial abnormalities. * V/Q Scan: FINDINGS: Normal wash-in and washout of xenon radiotracer. No mismatch perfusion defect identified. IMPRESSION: Low probability for PTE * CT Head: Findings: BRAIN/INTRACRANIAL STRUCTURES: Unenhanced CT images of the brain demonstrate no evidence of acute intracranial abnormality. Ventricles and sulci are normal in size and shape. There is no evidence of acute ischemic injury, hemorrhage, or mass. An old appearing left basal ganglia lacunar infarct is noted. This was not present at the time the prior exam,. Air-fluid levels are present in the maxillary sinuses bilaterally. The prior exam demonstrated right-sided sinus opacification only. There is prominent mucosal thickening also now present in the right frontal sinus, similar to the prior exam. EXTRACRANIAL STRUCTURES: Unremarkable. Impression: No acute intracranial abnormality. Paranasal sinus disease, including bilateral maxillary sinus air- fluid levels. * 2D ECHO conclusions: Normal cardiac chamber dimensions, LVEF 50-55%, normal RVSF, mild TR, small pericardial effusion that does not appear to be hemodynamically significant, moderate left pleural effusion * pCXR lungs with bilateral interstitial edema and pleural effusions Acute diastolic HF -diastolic heart failure, -BNP elevated at 5451 -IV diuretics on hold due to worsening renal function. -Cardiology consulted and input noted Cardiogenic Shock, resolved -Hold anti hypertensive meds -Started on dobutamine drip now off -Continue to monitor BP Acute hypoxic Respiratory Failure, resolved, off o2 -No baseline home oxygen requirements -weaned off supplemental O2 -Respiratory assess and treat per protocol ruled out PE -Elevated D-Dimer -V/Q scan showed Low probability for PTE Acute kidney failure likely due to ATN vasomotor nephropathy from cardiogenic shock, cardiorenal syndrome, poa -additional history garnered from Dr. Medina, basically ARF from ATN/Vancomycin and was worsening when d/c from [facility] and this worsening progression is from initial insult at prior hospitalization at [facility] -Cr on admission 3.1 with GFR 15 now upto 5.8, with mild increase, will monitor for stability anticipate discontinuation of dialysis access in am if continued stable and discharge -family agreeable to continued outpatient follow up with nephrology -Nephrology consult -Avoid nephro toxic agents -Renal dose all meds Leukocytosis -Resolved -monitor cbc closely -pt is afebrile, with no UTI as UA specimen contaminated with epithelial cells which was confirmed by urine cultures -BC negative -Taper/Finisher started iv rocephin--Consulted ID -Continue to monitor for now; Necrotic 2nd left toes with sutures in place, done at [facility] -Wound care consult -Consult Surgery. No surgery at this time. OUTPT EVAL Mild to Moderate Malnutrition -BMI -Albumin 3.2 -Dietitian consult pending DM2 -POC BG monitoring -HgbA1c 6.1 -SSI Coverage Anemia of chronic disease -Hgb on admission 8.5 -no s/s of active bleeding -Monitor Hgb, transfuse prn Suspect DM Retinopathy, patient is basically blind for about 1 month now. When I handed the patient the Radial [employer]ill [employer] Set Up Operator line phone she couldn't see it and proceeded to tell me she has been having blurred vision for about 1 month now. -Ophthal outpatient referral upon discharge (none here) DVT PPX -on heparin disposition: continue inpatient care, problem is the documentation of I/Os yesterday made it appear she made no urine as recorded as 0 for urine output which is not accurate. Nonetheless, if Cr worsened tomorrow then HD will be started. d/w Taper/Finisher Dr. Medina===>today cr is worse, make npo, co nsult Vascular to evaluate for HD line placement 02/12/19 Vas Cath placed, HD for tomorrow if Cr worsen per Dr. Otis Ceron, Taper/Finisher History Interval history: Patient seen and examined, no new complaints. family at bedside, no overnight event reported Hospitalist Physical - Physical exam Narrative exam: Gen: WDWN, NAD, Awake, Alert, Oriented HEENT: NCAT, EOMI, PERRL, OP Clear Neck: supple, no adenopathy, no thyromegaly, no JVD CVS/Heart: RRR, normal S1S2, pulses present bilaterally Chest/Lungs: bibasilar crackles, Symmetrical chest expansion, good air entry bilaterally GI/Abdomen: soft, NTND, good bowel sounds, no guarding or rebound /Bladder: no suprapubic tenderness, no CVA or paraspinal tenderness Extermity/Skin: left second toe with necrosis with suture, no c/c/e, no other obvious rash MSK: FROM x 4 Neuro: CN 2-12 grossly intact except vision, no new focal deficits Psych: calm - Constitutional Vitals: Temp Pulse Resp BP Pulse Ox 97.8 F 90 18 128/42 92 02/16/19 12:17 02/16/19 12:17 02/16/19 12:17 02/16/19 12:17 02/16/19 12:17 General appearance: Present: no acute distress Results - Labs CBC & Chem 7: 02/13/19 04:33 02/16/19 05:07 Labs: Laboratory Last Values WBC 9.7 K/mm3 (4.5-11.0) 02/13/19 04:33 RBC 2.81 M/mm3 (3.65-5.03) L 02/13/19 04:33 Hgb 8.7 gm/dl (10.1-14.3) L 02/13/19 04:33 Hct 26.0 % (30.3-42.9) L 02/13/19 04:33 MCV 93 fl (79-97) 02/13/19 04:33 MCH 31 pg (28-32) 02/13/19 04:33 MCHC 34 % (30-34) 02/13/19 04:33 RDW 14.9 % (13.2-15.2) 02/13/19 04:33 Plt Count 209 K/mm3 (140-440) 02/13/19 04:33 Lymph % (Auto) 8.9 % (13.4-35.0) L 02/09/19 04:42 Rush % (Auto) 9.0 % (0.0-7.3) H 02/09/19 04:42 Eos % (Auto) 0.4 % (0.0-4.3) 02/09/19 04:42 Baso % (Auto) 0.3 % (0.0-1.8) 02/09/19 04:42 Lymph # 1.4 K/mm3 (1.2-5.4) 02/09/19 04:42 Rush # 1.5 K/mm3 (0.0-0.8) H 02/09/19 04:42 Eos # 0.1 K/mm3 (0.0-0.4) 02/09/19 04:42 Baso # 0.0 K/mm3 (0.0-0.1) 02/09/19 04:42 Seg Neutrophils % 81.4 % (40.0-70.0) H 02/09/19 04:42 Seg Neutrophils # 13.2 K/mm3 (1.8-7.7) H 02/09/19 04:42 APTT 30.1 Sec. (24.2-36.6) 02/08/19 17:14 890.59 ng/mlDDU (0-234) H 02/08/19 17:14 Sodium 133 mmol/L (137-145) L 02/16/19 05:07 Potassium 4.0 mmol/L (3.6-5.0) 02/16/19 05:07 Chloride 96.4 mmol/L (98-107) L 02/16/19 05:07 Carbon Dioxide 21 mmol/L (22-30) L 02/16/19 05:07 20 mmol/L 02/16/19 05:07 BUN 35 mg/dL (7-17) H 02/16/19 05:07 5.8 mg/dL (0.7-1.2) H 02/16/19 05:07 Estimated GFR 7 ml/min 02/16/19 05:07 6 % 02/16/19 05:07 Glucose 146 mg/dL (65-100) H 02/16/19 05:07 POC Glucose 158 (70-105) H 02/16/19 11:40 6.1 % (4-6) H 02/08/19 16:25 Lactic Acid 0.80 mmol/L (0.7-2.0) 02/08/19 21:00 Calcium 8.7 mg/dL (8.4-10.2) 02/16/19 05:07 0.40 mg/dL (0.1-1.2) 02/08/19 16:26 AST 46 units/L (5-40) H 02/08/19 16:26 ALT 43 units/L (7-56) 02/08/19 16:26 123 units/L (35-129) 02/08/19 16:26 0.016 ng/mL (0.00-0.029) 02/09/19 04:42 NT-Pro-B Natriuret Pep 5451 pg/mL (0-900) H 02/08/19 16:26 6.9 g/dL (6.3-8.2) 02/08/19 16:26 3.2 g/dL (3.9-5) L 02/08/19 16:26 0.9 % 02/08/19 16:26 Shelli (Yellow) 02/09/19 03:45 Straw (Yellow) 02/09/19 03:45 Clear (Clear) 02/09/19 03:45 Cloudy (Clear) 02/09/19 03:45 5.0 (5.0-7.0) 02/09/19 03:45 6.0 (5.0-7.0) 02/09/19 03:45 Ur Specific [place] 1.006 (1.003-1.030) 02/09/19 03:45 Ur Specific [place] 1.013 (1.003-1.030) 02/09/19 03:45 30 mg/dl mg/dL (Negative) 02/09/19 03:45 <15 mg/dl mg/dL (Negative) 02/09/19 03:45 Neg mg/dL (Negative) 02/09/19 03:45 Neg mg/dL (Negative) 02/09/19 03:45 Neg mg/dL (Negative) 02/09/19 03:45 Neg mg/dL (Negative) 02/09/19 03:45 Sm (Negative) 02/09/19 03:45 Sm (Negative) 02/09/19 03:45 Neg (Negative) 02/09/19 03:45 Neg (Negative) 02/09/19 03:45 Neg (Negative) 02/09/19 03:45 Neg (Negative) 02/09/19 03:45 < 2.0 mg/dL (<2.0) 02/09/19 03:45 < 2.0 mg/dL (<2.0) 02/09/19 03:45 Ur Leukocyte Esterase Lg (Negative) 02/09/19 03:45 Ur Leukocyte Esterase Neg (Negative) 02/09/19 03:45 10.0 /HPF (0.0-6.0) H 02/13/19 13:45 38.0 /HPF (0.0-6.0) 02/13/19 13:45 U Epithel Cells (Auto) 8.0 /HPF (0-13.0) 02/13/19 13:45 1+ /HPF (Negative) 02/13/19 13:45 Few /HPF 02/09/19 03:45 Ur Transition Epith Cell 2 /HPF 02/13/19 13:45 Few /HPF 02/13/19 13:45 None seen (None Seen) 02/10/19 Unknown Immunofix Electrophor see below 02/10/19 07:59 Proteinase 3 (PR3) Ab <1.0 AI (<1.0) 02/10/19 07:59 Myeloperoxidase Ab <1.0 AI (<1.0) 02/10/19 07:59 125 mg/dL (83-193) 02/10/19 07:59 38 mg/dL (15-57) 02/10/19 07:59 Active Medications - Current Medications Current Medications: Generic Name Dose Route Start Last Admin Trade Name Freq PRN Reason Stop Dose Admin Acetaminophen 650 mg 02/08/19 22:15 02/12/19 19:33 Tylenol PO 650 mg Q4H PRN Administration Pain MILD(1-3)/Fever >100.5/WHITEHEAD Amlodipine Besylate 10 mg 02/15/19 10:00 02/16/19 10:11 Norvasc PO 10 mg QDAY ALESSANDRO Administration Aspirin 81 mg 02/14/19 10:00 02/16/19 10:11 Baby Aspirin PO 81 mg QDAY ALESSANDRO Administration Dextrose 50 ml 02/08/19 22:15 02/10/19 01:10 D50w (25gm) Syringe IV 50 ml PRN PRN Administration Hypoglycemia Docusate Sodium 100 mg 02/09/19 10:00 02/16/19 10:11 Colace PO 100 mg BID ALESSANDRO Administration Heparin Sodium (Porcine) 5,000 unit 02/09/19 10:00 02/16/19 10:10 Heparin SUB-Q 5,000 unit Q12HR ALESSANDRO Administration Hydralazine HCl 10 mg 02/11/19 08:56 02/12/19 22:18 Apresoline IV 10 mg Q4HR PRN Administration sbp above 180 Sodium Chloride 1,000 mls @ 75 mls/hr 02/10/19 10:00 02/16/19 06:55 Nacl 0.45% 1000 Ml IV 42 mls/hr DIRECT ALESSANDRO Infusion Insulin Human Lispro 0 unit 02/09/19 07:30 02/16/19 11:30 Humalog SUB-Q 2 unit ACHS ALESSANDRO Administration Protocol Ondansetron HCl 4 mg 02/08/19 22:15 Zofran IV Q6H PRN Nausea And Vomiting Sodium Chloride 10 ml 02/09/19 10:00 02/16/19 10:12 Sodium Chloride Flush Syringe 10 Ml IV 10 ml BID ALESSANDRO Administration Sodium Chloride 10 ml 02/08/19 22:15 02/15/19 22:45 Sodium Chloride Flush Syringe 10 Ml IV 10 ml PRN PRN Administration LINE FLUSH Nutrition/Malnutrition Assess - Dietary Evaluation Nutrition/Malnutrition Findings: Nutrition Notes Start: 02/15/19 14:57 Freq: Status: Active Protocol: Document 02/15/19 14:57 RM (Rec: 02/15/19 15:07 RM [id number]) Nutrition Notes Need for Assessment generated from: LOS Initial or Follow up Assessment Current Diagnosis Acute Kidney Injury,Diabetes, Heart Failure Other Pertinent Diagnosis L foot toe diabetic ulcer Current Diet Renal Labs/Tests Reviewed Pertinent Medications Reviewed Height 5 ft 6 in Weight 80.3 kg [place] Body Weight (kg) 59.09 BMI 28.5 Subjective/Other Information Screened for LOS. Pt and pt daughter in law in room at time of visit. Pt only speaks andorran. Pt daughter in law acted as science interpreter. Pt stated that she is eating either half of her meals or none depending on what she receives. Stated that she does want much meat and does not want hamburger or pork at all. Percent of energy/protein needs met: 30%/20% Burn Absent Trauma Absent #1 Nutrition Diagnosis Inadequate oral intake Etiology food preferences As Evidenced by Signs and Symptoms pt statement that she eats either half or none of her meals Is patient on ventilator? No Is Patient Ambulatory and/or Out of Bed Yes REE-(Coleman-St. Jeor-ambulatory/OOB) [ 1793.675 [id number]] Calculation Used for Recommendations Coleman-St Jeor Additional Notes Protein Needs: 96-120g (1.2-1. 5g/kg) Fluid Needs: 1 ml/kcal Nutrition Intervention Change Diet Order: Continue current Add Supplement/Snack (indicate name/kcal Nepro Mixed Bhakta 1 daily /protein ) Provides kCal: 425 Provides Protein (gm) 19 Goal #1 Meet at least 75% of calorie and protein needs via PO and ONS intakes Anticipated Discharge Needs: Renal diet Follow-Up By: 02/19/19 Additional Comments Follow for PO and ONS intakes
[2019-02-17] MEDS: NACL 0.45% 1000 ML 1,000 ML IV SCH (05:05)
[2019-02-17 07:39] LABS: Calcium 8.6 mg/dL (8.4-10.2)
[2019-02-17] MEDS: HumaLOG SUB-Q SCH ×2 (08:00→12:30)
[2019-02-17] MEDS: NORVASC PO SCH (10:38)
[2019-02-17] MEDS: COLACE PO SCH (10:44)
[2019-02-17] MEDS: BABY ASPIRIN PO SCH (10:44)
[2019-02-17] MEDS: HEPARIN SUB-Q SCH (10:44)
[2019-02-17] MEDS: SODIUM CHLORIDE FLUSH SYRINGE 10 ML IV SCH (10:45)
--- NOTE | 2019-02-17 12:28 | Discharge Summary ---
Providers - Providers Date of Admission: 02/08/19 22:15 Attending physician: MAGDY LEE MD 02/08/19 22:15 Consult to Physician [CONS] Routine Comment: Consulting Provider: NATHANIEL BENITEZ Physician Instructions: Reason For Exam: PUSHPA ??CDK3 Consult to Physician [CONS] Routine Comment: Consulting Provider: HELEN HENSON Physician Instructions: Reason For Exam: acute chf 02/09/19 00:46 Consult to Wound/ET Nurse [CONS] Routine Reason For Exam: wound eval 02/10/19 15:50 Consult to Physician [CONS] Routine Comment: Consulting Provider: PAULA HODGE Physician Instructions: I notified Reason For Exam: Evaluate for sepsis, necrotic 2nd toe, high WBC 02/10/19 15:53 Consult to Physician [CONS] Routine Comment: Consulting Provider: SHANA SMITH Physician Instructions: Reason For Exam: Gangrene 2nd left toe 02/12/19 07:46 Consult to Physician [CONS] Routine Comment: Consulting Provider: MIKE COLEMAN Physician Instructions: Reason For Exam: Evaluate for HD access placement 02/14/19 12:03 Consult to Physician [CONS] Routine Comment: Consulting Provider: JAME HALLMAN Physician Instructions: Reason For Exam: possible osteomylitis Primary care physician: DEBORA YI Hospitalization Condition: Stable Hospital course: patient is a 63 -year-old Irish speaking woman with a history of hypertension, DM, Diabetic foot ulcer status post debridement of left second toe d/t (one week ago at [facility]) who presents to [facility] ED with complaints of generalized weakness, dizziness, chest pain and sob. CT Head negative for acute intracranial abnormalities. * V/Q Scan: FINDINGS: Normal wash-in and washout of xenon radiotracer. No mismatch perfusion defect identified. IMPRESSION: Low probability for PTE * CT Head: Findings: BRAIN/INTRACRANIAL STRUCTURES: Unenhanced CT images of the brain demonstrate no evidence of acute intracranial abnormality. Ventricles and sulci are normal in size and shape. There is no evidence of acute ischemic injury, hemorrhage, or mass. An old appearing left basal ganglia lacunar infarct is noted. This was not present at the time the prior exam,. Air-fluid levels are present in the maxillary sinuses bilaterally. The prior exam demonstrated right-sided sinus opacification only. There is prominent mucosal thickening also now present in the right frontal sinus, similar to the prior exam. EXTRACRANIAL STRUCTURES: Unremarkable. Impression: No acute intracranial abnormality. Paranasal sinus disease, including bilateral maxillary sinus air-fluid levels. * 2D ECHO conclusions: Normal cardiac chamber dimensions, LVEF 50-55%, normal RVSF, mild TR, small pericardial effusion that does not appear to be hemodynamically significant, moderate left pleural effusion * pCXR lungs with bilateral interstitial edema and pleural effusions * creatinine down to 5.5. Per discussion with Marine Engineering Professor yesterday will place discharge order. Pateint to follow with pre k special education teacher outptient this has been discussed with them. She will need repeat lab in 2 days. Acute diastolic HF -diastolic heart failure, -BNP elevated at 5451 -IV diuretics on hold due to worsening renal function. -Cardiology consulted and input noted Cardiogenic Shock, resolved -Hold anti hypertensive meds -Started on dobutamine drip now off -Continue to monitor BP Acute hypoxic Respiratory Failure, resolved, off o2 -No baseline home oxygen requirements -weaned off supplemental O2 -Respiratory assess and treat per protocol ruled out PE -Elevated D-Dimer -V/Q scan showed Low probability for PTE Acute kidney failure likely due to ATN vasomotor nephropathy from cardiogenic shock, cardiorenal syndrome, poa -additional history garnered from Dr. Medina, basically ARF from ATN/Vancomycin and was worsening when d/c from [facility] and this worsening progression is from initial insult at prior hospitalization at [facility] -Cr on admission 3.1 with GFR 15 now upto 5.6 and stable, anticipate discontinuation of dialysis access in am if continued stable and discharge -family agreeable to continued outpatient follow up with nephrology -Nephrology consult -Avoid nephro toxic agents -Renal dose all meds Leukocytosis -Resolved -monitor cbc closely -pt is afebrile, with no UTI as UA specimen contaminated with epithelial cells which was confirmed by urine cultures -BC negative -Marine Engineering Professor started iv rocephin--Consulted ID -Continue to monitor for now; Necrotic 2nd left toes with sutures in place, done at [facility] -Wound care consult -Consult Surgery. No surgery at this time. OUTPT EVAL Mild to Moderate Malnutrition -BMI -Albumin 3.2 -Dietitian consult pending DM2 -POC BG monitoring -HgbA1c 6.1 -SSI Coverage Anemia of chronic disease -Hgb on admission 8.5 -no s/s of active bleeding -Monitor Hgb, transfuse prn Suspect DM Retinopathy, patient is basically blind for about 1 month now. When I handed the patient the Senior Care Specialist line phone she couldn't see it and proceeded to tell me she has been having blurred vision for about 1 month now. -Ophthal outpatient referral upon discharge (none here) DVT PPX -on heparin disposition: continue inpatient care, problem is the documentation of I/Os yesterday made it appear she made no urine as recorded as 0 for urine output which is not accurate. Nonetheless, if Cr worsened tomorrow then HD will be started. d/w Marine Engineering Professor Dr. Medina===>today cr is worse, make npo, consult Vascular to evaluate for HD line placement 02/12/19 Vas Cath placed, HD for tomorrow if Cr worsen per Dr. Otis Zazueta, Marine Engineering Professor Disposition: DC-01 TO HOME OR SELFCARE Time spent for discharge: 35 mins Exam - Constitutional Vitals: Temp Pulse Resp BP Pulse Ox 98.7 F 98 H 20 125/57 94 02/17/19 12:20 02/17/19 12:20 02/17/19 12:20 02/17/19 12:20 02/17/19 12:20 Plan Activity: advance as tolerated, fall precautions Diet: renal Special Instructions: record daily BP diary, record blood sugar diary Follow up with: DEBORA YI MD [Primary Care Provider] - 3-5 Days VIVI ZAZUETA MD [Staff Physician] - 7 Days SHANA SMITH MD [Staff Physician] - 7 Days GAGE SHAW MD [Staff Physician] - 7 Days Prescriptions: Aspirin [Aspirin BABY CHEW TAB] 81 mg PO QDAY #30 tab.chew Docusate Sodium [Colace CAP] 100 mg PO BID #20 capsule glyBURIDE [Diabeta] 5 mg PO DAILY #30 tablet amLODIPine [Norvasc] 10 mg PO QDAY #30 tablet Other Discharge Orders: Basic Metabolic Panel Time Frame: 2 Days, Location: None Selected
--- NOTE | 2019-02-17 12:52 | Progress Note ---
Subjective Date of service: 02/17/19 Principal diagnosis: acute kidney injury Interval history: Impression: * Acute kidney injury secondary to ATN vs AIN (less likely AIN given lack of peripheral eosinophilia) --Renal ultrasound: right kidney is 12.3 cm, left kidney is 12.9 cm in length. There is no hydronephrosis (Jan 2019 - [facility]) --SCr 0.95mg/dL on Jan 29, 2019 --Hx of PUSHPA at [facility] - SCr 2.17mg/dL at discharge (SCr was trending up at dc) * Pulmonary edema --TTE: LV normal size. Nml LV wall thickness. LV wall motion nml. EF > 55%. LVEF nml. Nml LV diastolic function (Feb 04 at [facility]). * Acute osteomyelitis of the left foot second toe distal phalanx (MRI Jan 30 2019 @ [facility]) * Type II DM * Hypertension Plan: * Records from [facility] reviewed - PUSHPA was attributed to ATN related to vancomycin per nephrology group following her at that time. * SCr is stable at this time, has been in 5s * NO acute indication for CANVAS WORKER, rec follow up in office next week, can dc home today * Renal prognosis remains guarded. Creatinine appears to have plateaued with sl ow improvement in BUN, and am hopeful for tubular recovery in coming days and ultimate improvement of PUSHPA. * Advised of possibility of requiring dialysis (via intrepreter) in coming days; patient with vas-cath when needed. No indication for acute renal replacement therapy today and hopeful for recovery as noted above * continue to follow Strict I/O ( * Continue to hold diuretics * Continue to hold ACEi * Avoid potential nephrotoxins * Dose medications for renal function no acute events overnight. patient without any new complaints- notes normal breathing, no chest pain, no lower extremity edema. family at bedside and denies any further questions General appearance: well-developed, well-nourished EENT: atraumatic Respiratory: Clear to Auscultation bilaterally, off nasal cannula Cardiology: regular, S1S2, no lower extremity edema Gastrointestinal: normal, no distended, no masses Neurologic: no focal deficit Psychiatric: cooperative Objective - Vital Signs Vital signs: Vital Signs - 12hr 02/17/19 02/17/19 02/17/19 05:36 10:38 10:43 Temperature 97.7 F Pulse Rate 98 H 99 H Respiratory 16 Rate Blood Pressure 134/50 141/72 141/72 O2 Sat by Pulse 89 Oximetry 02/17/19 12:20 Temperature 98.7 F Pulse Rate 98 H Respiratory 20 Rate Blood Pressure 125/57 O2 Sat by Pulse 94 Oximetry - Lab 02/13/19 04:33 02/17/19 06:57 Most recent lab results Calcium 8.6 mg/dL (8.4-10.2) 02/17/19 06:57 Medications & Allergies - Medications Allergies/Adverse Reactions: Allergies No Known Allergies Allergy (Verified 11/11/17 20:53) Home Medications: Home Medications Medication Instructions Recorded Confirmed Last Taken Type amLODIPine [Norvasc] 5 mg PO DAILY 03/09/17 02/08/19 02/08/19 History Aspirin [Aspirin BABY CHEW TAB] 81 mg PO QDAY #30 tab.chew 02/17/19 Unknown Rx Docusate Sodium [Colace CAP] 100 mg PO BID #20 capsule 02/17/19 Unknown Rx amLODIPine [Norvasc] 10 mg PO QDAY #30 tablet 02/17/19 Unknown Rx glipiZIDE XL [Glucotrol Xl] 2.5 mg PO QAM #30 tab.er.24 02/17/19 Unknown Rx Active Medications: Generic Name Dose Route Start Last Admin Trade Name Freq PRN Reason Stop Dose Admin Acetaminophen 650 mg 02/08/19 22:15 02/12/19 19:33 Tylenol PO 650 mg Q4H PRN Administration Pain MILD(1-3)/Fever >100.5/WHITEHEAD Amlodipine Besylate 10 mg 02/15/19 10:00 02/17/19 10:38 Norvasc PO 10 mg QDAY ALESSANDRO Administration Aspirin 81 mg 02/14/19 10:00 02/17/19 10:44 Baby Aspirin PO 81 mg QDAY ALESSANDRO Administration Dextrose 50 ml 02/08/19 22:15 02/10/19 01:10 D50w (25gm) Syringe IV 50 ml PRN PRN Administration Hypoglycemia Docusate Sodium 100 mg 02/09/19 10:00 02/17/19 10:44 Colace PO 100 mg BID ALESSANDRO Administration Heparin Sodium (Porcine) 5,000 unit 02/09/19 10:00 02/17/19 10:44 Heparin SUB-Q 5,000 unit Q12HR ALESSANDRO Administration Hydralazine HCl 10 mg 02/11/19 08:56 02/12/19 22:18 Apresoline IV 10 mg Q4HR PRN Administration sbp above 180 Sodium Chloride 1,000 mls @ 75 mls/hr 02/10/19 10:00 02/17/19 05:05 Nacl 0.45% 1000 Ml IV 42 mls/hr DIRECT ALESSANDRO Administration Insulin Human Lispro 0 unit 02/09/19 07:30 02/17/19 08:00 Humalog SUB-Q Not Given ACHS ALESSANDRO Protocol Ondansetron HCl 4 mg 02/08/19 22:15 Zofran IV Q6H PRN Nausea And Vomiting Sodium Chloride 10 ml 02/09/19 10:00 02/17/19 10:45 Sodium Chloride Flush Syringe 10 Ml IV 10 ml BID ALESSANDRO Administration Sodium Chloride 10 ml 02/08/19 22:15 02/15/19 22:45 Sodium Chloride Flush Syringe 10 Ml IV 10 ml PRN PRN Administration LINE FLUSH
[2019-02-17 16:22] VITALS: BP 116/59
== END 2019-02-17 17:45 | disposition home or self-care (01) | DRG 286 ==
LOC: ED 15:09 → 4A 22:15 → 3A 02-15 17:10
PROVIDERS: ADMIT Internal Medicine; ATTEND Internal Medicine
PROC: 02H633Z Insertion of Infusion Device into Right Atrium, Percutaneous Approach (ICD-10-PCS; principal; 2019-02-12)
PROC: B2141ZZ Fluoroscopy of Right Heart using Low Osmolar Contrast (ICD-10-PCS; 2019-02-12)
PROC: B244ZZZ Ultrasonography of Right Heart (ICD-10-PCS; 2019-02-12)
DX: I13.0 Hypertensive heart and chronic kidney disease with heart failure and stage 1 through stage 4 chronic kidney disease, or unspecified chronic kidney disease (principal); I50.43 Acute on chronic combined systolic (congestive) and diastolic (congestive) heart failure; J96.01 Acute respiratory failure with hypoxia; R57.0 Cardiogenic shock; N17.0 Acute kidney failure with tubular necrosis; E44.0 Moderate protein-calorie malnutrition; M86.172 Other acute osteomyelitis, left ankle and foot; E11.52 Type 2 diabetes mellitus with diabetic peripheral angiopathy with gangrene; I96 Gangrene, not elsewhere classified; E11.69 Type 2 diabetes mellitus with other specified complication; D64.9 Anemia, unspecified; E11.649 Type 2 diabetes mellitus with hypoglycemia without coma; E11.319 Type 2 diabetes mellitus with unspecified diabetic retinopathy without macular edema; E11.621 Type 2 diabetes mellitus with foot ulcer; N18.9 Chronic kidney disease, unspecified; E11.22 Type 2 diabetes mellitus with diabetic chronic kidney disease; E11.65 Type 2 diabetes mellitus with hyperglycemia; L97.529 Non-pressure chronic ulcer of other part of left foot with unspecified severity; Z79.84 Long term (current) use of oral hypoglycemic drugs; Z68.28 Body mass index [BMI] 28.0-28.9, adult
CPT/HCPCS: 36415; 36556; 70450; 71045; 73721; 76937; 77001; 78582; 80048; 80053; 81001; 81015; 82140; 82947; 82962; 83036; 83880; 84484; 85025; 85027; 85379; 85730; 86021; 86160; 86334; 87040; 87086; 87116; 89050; 93005; 93010; 93306; 93970; 96365; 96375; G0378; A9540; A9558; C1752; J0360; J0696; J1250; J1644; J1815; J1940; J2250; J2543; J3010; J7030; J7050

== ENCOUNTER 2019-03-06 13:32 | Inpatient (IN) | payer OTHER ==
--- NOTE | 2019-03-06 13:47 | Event Note ---
ED Screening Note Date of service: 03/06/19 Time: 13:43 ED Screening Note: This is a 63 y.o. F. that presents to the ER with BLE edema and SOB. Patient was at nephrology office and sent to the ER because hyperkalemia and BLE edema. This initial assessment/diagnostic orders/clinical plan/treatment(s) is/are subject to change based on patients health status, clinical progression and re- assessment by fellow clinical providers in the ED. Further treatment and workup at subsequent clinical providers discretion. Patient/guardian urged not to elope from the ED as their condition may be serious if not clinically assessed and managed. Initial orders include: Labs and CXR
--- NOTE | 2019-03-06 14:17 | XRay Report ---
CHEST 1 VIEW INDICATION: edema and SOB. COMPARISON: 02/08/2019 FINDINGS: There is poor inspiration. Mild cardiomegaly is suspected. Small bilateral pleural effusions compress the lung bases. The upper lung zones are clear. No obvious pneumonia or pneumothorax. IMPRESSION: Mild cardiomegaly and small bilateral pleural effusions. Signer Name: Cliff Ricardo Jr, MD Signed: 03/06/2019 2:13 PM Workstation Name: [id number]
[2019-03-06 14:48] LABS: Bilirubin,Urine NEG (Negative); Blood,Urine NEG (Negative); Color,Urine Yellow (Yellow); Urobilinogen,Urine < 2.0 mg/dL (<2.0)
[2019-03-06 14:55] LABS: Basophils % (Auto) 0.4 % (0.0-1.8); Eosinophils # (Auto) 0.1 K/mm3 (0.0-0.4); Eosinophils % (Auto) 0.8 % (0.0-4.3); Hematocrit 28.7 % (30.3-42.9); Hemoglobin 9.4 gm/dl (10.1-14.3); Lymphocytes % (Auto) 9.8 % (13.4-35.0); Mean Corpuscular HGB Conc 33 % (30-34); Mean Corpuscular Volume 95 fl (79-97); Monocytes # (Auto) 0.9 K/mm3 (0.0-0.8); Monocytes % (Auto) 8.1 % (0.0-7.3); Platelet Count 218 K/mm3 (140-440); Red Blood Count 3.04 M/mm3 (3.65-5.03)
--- NOTE | 2019-03-06 14:57 | Emergency Department Report ---
ED Shortness of Breath HPI - General Chief Complaint: Medical Clearance Stated Complaint: DOCTOR REFERRAL Time Seen by Provider: 03/06/19 13:42 Source: patient, family Mode of arrival: Wheelchair Limitations: Language Barrier - History of Present Illness Initial Comments: Patient is 63 years old female with history of hypertension and diabetes and chronic kidney disease. Patient sent to the ER by car hop picker Dr. Baird for abnormal labs including a creatinine and high potassium. Patient stated that she has been having more shortness of breath for the last few days and generalized body swelling. Patient denied any chest pain. Patient also denied any nausea or vomiting. MD Complaint: shortness of breath - Related Data Home Medications Medication Instructions Recorded Confirmed Last Taken amLODIPine [Norvasc] 5 mg PO DAILY 03/09/17 02/08/19 02/08/19 Previous Rx's Medication Instructions Recorded Last Taken Type Aspirin [Aspirin BABY CHEW TAB] 81 mg PO QDAY #30 tab.chew 02/17/19 Unknown Rx Docusate Sodium [Colace CAP] 100 mg PO BID #20 capsule 02/17/19 Unknown Rx amLODIPine [Norvasc] 10 mg PO QDAY #30 tablet 02/17/19 Unknown Rx glyBURIDE [Diabeta] 5 mg PO DAILY #30 tablet 02/17/19 Unknown Rx Allergies Allergy/AdvReac Type Severity Reaction Status Date / Time No Known Allergies Allergy Verified 11/11/17 20:53 ED Review of Systems ROS: Stated complaint: DOCTOR REFERRAL Other details as noted in HPI Comment: All other systems reviewed and negative Constitutional: denies: chills, fever Respiratory: orthopnea, shortness of breath, SOB with exertion, SOB at rest. denies: wheezing Cardiovascular: denies: chest pain, palpitations, dyspnea on exertion Gastrointestinal: denies: abdominal pain, nausea, vomiting, diarrhea, constipation, hematemesis, melena, hematochezia Musculoskeletal: denies: back pain ED Past Medical Hx - Past Medical History Previous Medical History?: Yes Hx Hypertension: Yes Hx Heart Attack/AMI: No Hx Congestive Heart Failure: No Hx Diabetes: Yes Hx Asthma: No Hx COPD: No Hx HIV: No - Surgical History Past Surgical History?: Yes Hx Pacemaker: No Hx Internal Defibrillator: No Hx Breast Surgery: Yes (Mass removed from right under arm.) Additional Surgical History: Mass removed from under right arm. C- Section - Social History Smoking Status: Never Smoker Substance Use Type: None - Medications Home Medications: Home Medications Medication Instructions Recorded Confirmed Last Taken Type amLODIPine [Norvasc] 5 mg PO DAILY 03/09/17 02/08/19 02/08/19 History Aspirin [Aspirin BABY CHEW TAB] 81 mg PO QDAY #30 tab.chew 02/17/19 Unknown Rx Docusate Sodium [Colace CAP] 100 mg PO BID #20 capsule 02/17/19 Unknown Rx amLODIPine [Norvasc] 10 mg PO QDAY #30 tablet 02/17/19 Unknown Rx glyBURIDE [Diabeta] 5 mg PO DAILY #30 tablet 02/17/19 Unknown Rx ED Physical Exam - General Limitations: Language Barrier General appearance: alert, in no apparent distress - Head Head exam: Present: atraumatic, normocephalic, normal inspection - Eye Eye exam: Present: normal appearance, PERRL - ENT ENT exam: Present: normal exam, mucous membranes moist - Neck Neck exam: Present: normal inspection, full ROM. Absent: tenderness, meningismus, lymphadenopathy, thyromegaly - Respiratory Respiratory exam: Present: normal lung sounds bilaterally - Cardiovascular Cardiovascular Exam: Present: regular rate, normal rhythm, normal heart sounds - GI/Abdominal GI/Abdominal exam: Present: soft, normal bowel sounds. Absent: distended, tenderness, guarding, rebound, rigid, organomegaly, mass, bruit, pulsatile mass, hernia - Extremities Exam Extremities exam: Present: normal inspection, full ROM, normal capillary refill, pedal edema. Absent: calf tenderness - Back Exam Back exam: Present: normal inspection, full ROM. Absent: CVA tenderness (R), CVA tenderness (L), muscle spasm, vertebral tenderness - Neurological Exam Neurological exam: Present: alert, oriented X3, CN II-XII intact, normal gait, reflexes normal - Skin Skin exam: Present: warm, intact, normal color ED Course Vital Signs 03/06/19 03/06/19 03/06/19 13:42 14:45 15:00 Temperature 98.6 F Pulse Rate 100 H 100 H 99 H Respiratory 20 22 18 Rate Blood Pressure 146/72 152/76 143/72 O2 Sat by Pulse 92 96 98 Oximetry ED Medical Decision Making - Lab Data Result diagrams: 03/06/19 14:38 03/06/19 14:38 - EKG Data -: EKG Interpreted by Me EKG shows normal: sinus rhythm Rate: normal - EKG Data Interpretation: no acute changes - Radiology Data Radiology results: report reviewed - Medical Decision Making Patient is 63 years old female with history of hypertension and diabetes and chronic kidney disease. Patient sent to the ER by car hop picker Dr. Baird for abnormal labs including a creatinine and high potassium. Patient stated that she has been having more shortness of breath for the last few days and generalized body swelling. Patient denied any chest pain. Patient also denied any nausea or vomiting. Labs reviewed and showed a potassium of 5.4, creatinine of the hand and BUN of 60. Chest x-ray show bilateral pleural effusion with pulmonary edema. I discussed the patient is , patient hop picker, she advised to give 80 mg of IV Lasix and to admit the patient to the hospital for further management. I discussed the patient is , he agreed to admit the patient to medical service. Critical Care Time: Yes Critical care time in (mins) excluding proc time.: 30 Critical care attestation.: If time is entered above; I have spent that time in minutes in the direct care of this critically ill patient, excluding procedure time. ED Disposition Clinical Impression: Acute renal failure, CHF exacerbation, Hyperkalemia Disposition: 09 OP ADMIT IP TO THIS HOSP Is pt being admited?: Yes Condition: Stable Referrals: DEBORA YI MD [Primary Care Provider] - 3-5 Days
[2019-03-06 15:13] LABS: Albumin 3.7 g/dL (3.9-5); Calcium 9.1 mg/dL (8.4-10.2)
[2019-03-06] MEDS ORDERED: LASIX IV ONE ×2 (16:10→17:11)
[2019-03-06] MEDS ORDERED: KIONEX PO ONE (16:20)
[2019-03-06] MEDS ORDERED: KIONEX ONE (17:11)
[2019-03-06] MEDS ORDERED: CALCIUM CHLORIDE 1,000 MG in NACL 0.9% 100 ML IV ONE (17:20)
--- NOTE | 2019-03-06 22:43 | History and Physical Report ---
History of Present Illness Date of examination: 03/06/19 Date of admission: 03/06/19 16:21 Chief complaint: Increasing creatinine and potassium levels--sent by her director of recruitment History of present illness: 63-year-old female with history of hypertension diabetes and chronic kidney disease sent by her director of recruitment for increasing creatinine and high potassium. Patient is otherwise asymptomatic. No nausea vomiting. No fever or chills. Patient has benign slightly increased shortness of breath and generalized body swelling. No chest pain. No exacerbating or relieving factors. Past Medical History Previous Medical History?: Yes Hypertension: Yes Diabetes: Yes Surgical History Past Surgical History?: Yes Breast Surgery: Yes (Mass removed from right under arm.) Additional Surgical History: Mass removed from under right arm C- Section Family history Htn Social History Smoking Status: Never Smoker Substance Use Type: None Medications Home Medications: Home Medications Medication Instructions Recorded Confirmed Last Taken Type amLODIPine [Norvasc] 5 mg PO DAILY 03/09/17 02/08/19 02/08/19 History Aspirin [Aspirin BABY CHEW TAB] 81 mg PO QDAY #30 tab.chew 02/17/19 Unknown Rx Docusate Sodium [Colace CAP] 100 mg PO BID #20 capsule 02/17/19 Unknown Rx amLODIPine [Norvasc] 10 mg PO QDAY #30 tablet 02/17/19 Unknown Rx glyBURIDE [Diabeta] 5 mg PO DAILY #30 tablet 02/17/19 Unknown Rx Review of Systems ROS: Stated complaint: DOCTOR REFERRAL Other details as noted in HPI Comment: All other systems reviewed and negative Constitutional: denies: chills, fever Respiratory: orthopnea, shortness of breath, SOB with exertion, SOB at rest. denies: wheezing Cardiovascular: denies: chest pain, palpitations, dyspnea on exertion Gastrointestinal: denies: abdominal pain, nausea, vomiting, diarrhea, constipation, hematemesis, melena, hematochezia Musculoskeletal: denies: back pain Medications and Allergies Allergies Allergy/AdvReac Type Severity Reaction Status Date / Time No Known Allergies Allergy Verified 11/11/17 20:53 Home Medications Medication Instructions Recorded Confirmed Last Taken Type amLODIPine [Norvasc] 5 mg PO DAILY 03/09/17 03/06/19 03/05/19 History Aspirin [Aspirin BABY CHEW TAB] 81 mg PO QDAY #30 tab.chew 08/03/06/19 03/05/19 Rx Docusate Sodium [Colace CAP] 100 mg PO BID #20 capsule 02/17/19 03/06/19 03/06/19 Rx amLODIPine [Norvasc] 10 mg PO QDAY #30 tablet 02/17/19 03/06/19 03/05/19 Rx glyBURIDE [Diabeta] 5 mg PO DAILY #30 tablet 02/17/19 03/06/19 03/05/19 Rx Exam - Constitutional Vitals: Temp Pulse Resp BP Pulse Ox 97.6 F 99 H 20 156/69 95 03/06/19 19:34 03/06/19 19:41 03/06/19 20:02 03/06/19 19:34 03/06/19 19:34 General appearance: Present: no acute distress, well-nourished - EENT Eyes: Present: PERRL ENT: hearing intact, clear oral mucosa - Neck Neck: Present: supple, normal ROM - Respiratory Respiratory effort: normal Respiratory: bilateral: CTA - Cardiovascular Heart rate: 80 Rhythm: regular Heart Sounds: Present: S1 & S2. Absent: rub, click - Extremities Extremities: no ischemia, pulses intact, pulses symmetrical, No edema Peripheral Pulses: within normal limits - Abdominal General gastrointestinal: Present: soft, non-tender, non-distended, normal bowel sounds Female genitourinary: Present: normal - Rectal Rectal Exam: deferred - Integumentary Integumentary: Present: clear, warm, dry - Musculoskeletal Musculoskeletal: gait normal, strength equal bilaterally - Psychiatric Psychiatric: appropriate mood/affect, intact judgment & insight - Neurologic Neurologic: CNII-XII intact, moves all extremities - Allied Health Allied health notes reviewed: nursing, case management Results - Labs CBC & Chem 7: 03/06/19 14:38 03/06/19 14:38 Labs: Laboratory Last Values WBC 10.7 K/mm3 (4.5-11.0) 03/06/19 14:38 RBC 3.04 M/mm3 (3.65-5.03) L 03/06/19 14:38 Hgb 9.4 gm/dl (10.1-14.3) L 03/06/19 14:38 Hct 28.7 % (30.3-42.9) L 03/06/19 14:38 MCV 95 fl (79-97) 03/06/19 14:38 MCH 31 pg (28-32) 03/06/19 14:38 MCHC 33 % (30-34) 03/06/19 14:38 RDW 17.0 % (13.2-15.2) H 03/06/19 14:38 Plt Count 218 K/mm3 (140-440) 03/06/19 14:38 Lymph % (Auto) 9.8 % (13.4-35.0) L 03/06/19 14:38 [place] % (Auto) 8.1 % (0.0-7.3) H 03/06/19 14:38 Eos % (Auto) 0.8 % (0.0-4.3) 03/06/19 14:38 Baso % (Auto) 0.4 % (0.0-1.8) 03/06/19 14:38 Lymph # 1.0 K/mm3 (1.2-5.4) L 03/06/19 14:38 [place] # 0.9 K/mm3 (0.0-0.8) H 03/06/19 14:38 Eos # 0.1 K/mm3 (0.0-0.4) 03/06/19 14:38 Baso # 0.0 K/mm3 (0.0-0.1) 03/06/19 14:38 Seg Neutrophils % 80.9 % (40.0-70.0) H 03/06/19 14:38 Seg Neutrophils # 8.6 K/mm3 (1.8-7.7) H 03/06/19 14:38 Sodium 135 mmol/L (137-145) L 03/06/19 14:38 Potassium 5.4 mmol/L (3.6-5.0) H 03/06/19 14:38 Chloride 98.5 mmol/L (98-107) 03/06/19 14:38 Carbon Dioxide 21 mmol/L (22-30) L 03/06/19 14:38 21 mmol/L 03/06/19 14:38 BUN 60 mg/dL (7-17) H 03/06/19 14:38 3.0 mg/dL (0.7-1.2) H 03/06/19 14:38 Estimated GFR 16 ml/min 03/06/19 14:38 20 % 09/10/19 14:38 Glucose 148 mg/dL (65-100) H 03/06/19 14:38 POC Glucose 120 (70-105) H 03/06/19 20:21 Calcium 9.1 mg/dL (8.4-10.2) 03/06/19 14:38 0.40 mg/dL (0.1-1.2) 03/06/19 14:38 AST 48 units/L (5-40) H 03/06/19 14:38 ALT 111 units/L (7-56) H 03/06/19 14:38 131 units/L (35-129) H 03/06/19 14:38 0.017 ng/mL (0.00-0.029) 03/06/19 14:38 NT-Pro-B Natriuret Pep 2175 pg/mL (0-900) H 03/06/19 14:38 7.2 g/dL (6.3-8.2) 03/06/19 14:38 3.7 g/dL (3.9-5) L 03/06/19 14:38 1.1 % 03/06/19 14:38 Yellow (Yellow) 03/06/19 14:36 Clear (Clear) 03/06/19 14:36 5.0 (5.0-7.0) 03/06/19 14:36 Ur Specific [place] 1.010 (1.003-1.030) 03/06/19 14:36 30 mg/dl mg/dL (Negative) 03/06/19 14:36 Neg mg/dL (Negative) 03/06/19 14:36 Neg mg/dL (Negative) 03/06/19 14:36 Neg (Negative) 03/06/19 14:36 Neg (Negative) 03/06/19 14:36 Neg (Negative) 03/06/19 14:36 < 2.0 mg/dL (<2.0) 03/06/19 14:36 Ur Leukocyte Esterase Tr (Negative) 03/06/19 14:36 4.0 /HPF (0.0-6.0) 03/06/19 14:36 2.0 /HPF (0.0-6.0) 03/06/19 14:36 U Epithel Cells (Auto) 1.0 /HPF (0-13.0) 03/06/19 14:36 Short CBC 03/06/19 Range/Units 14:38 WBC 10.7 (4.5-11.0) K/mm3 Hgb 9.4 L (10.1-14.3) gm/dl Hct 28.7 L (30.3-42.9) % Plt Count 218 (140-440) K/mm3 BMP 03/06/19 14:38 Sodium 135 L Potassium 5.4 H Chloride 98.5 Carbon Dioxide 21 L BUN 60 H Creatinine 3.0 H Glucose 148 H Calcium 9.1 Cardiac Enzymes 03/06/19 Range/Units 14:38 Troponin T 0.017 (0.00-0.029) ng/mL Liver Function 03/06/19 Range/Units 14:38 Total Bilirubin 0.40 (0.1-1.2) mg/dL AST 48 H (5-40) units/L ALT 111 H (7-56) units/L Alkaline Phosphatase 131 H (35-129) units/L Albumin 3.7 L (3.9-5) g/dL Urine 03/06/19 Range/Units 14:36 Urine Color Yellow (Yellow) Urine pH 5.0 (5.0-7.0) Ur Specific [place] 1.010 (1.003-1.030) Urine Protein 30 mg/dl (Negative) mg/dL Urine Glucose (UA) Neg (Negative) mg/dL - Imaging and Cardiology EKG: report reviewed (sinus rhythm with ventricular premature complexes, no acute ST-T wave changes heart rate of 98/m) Assessment and Plan Advance Directives: Yes (full code) VTE prophylaxis?: Chemical Plan of care discussed with patient/family: Yes - Patient Problems (1) Acute kidney injury Current Visit: Yes Status: Acute Plan to address problem: IV fluids for now Nephrology consult Last creatinine was 5.5 on 02/17/2019 Gentle hydration which may be stopped tomorrow if necessary (2) Hyperkalemia Current Visit: Yes Status: Acute Plan to address problem: IV calcium gluconate given Kayexalate not given Recheck potassium (3) Hypertension Current Visit: No Status: Chronic Qualifiers: Hypertension type: essential hypertension Qualified Code(s): I10 - Essential (primary) hypertension Plan to address problem: Continue antihypertensives (4) T2DM (type 2 diabetes mellitus) Current Visit: Yes Status: Chronic Qualifiers: Diabetes mellitus retirement insulin use: without business services clerk use Plan to address problem: Continue oral hypoglycemics and coverage (5) DVT prophylaxis Current Visit: Yes Status: Acute Plan to address problem: On heparin and GI prophylaxis
[2019-03-06] MEDS ORDERED: ZOFRAN IV PRN (22:48)
[2019-03-06] MEDS ORDERED: TYLENOL PO PRN (22:48)
[2019-03-06] MEDS ORDERED: SODIUM CHLORIDE FLUSH SYRINGE 10 ML IV PRN (22:48)
[2019-03-06] MEDS ORDERED: REGLAN IV PRN (22:49)
[2019-03-06] MEDS ORDERED: PERCOCET 5/325 PO PRN (22:49)
[2019-03-06] MEDS ORDERED: DILAUDID IV PRN (22:49)
[2019-03-06] MEDS ORDERED: NACL 0.9% 1000 ML 1,000 ML IV SCH (23:00)
[2019-03-06] MEDS: COLACE PO SCH (23:26)
[2019-03-07 05:28] LABS: Basophils % (Auto) 0.5 % (0.0-1.8); Eosinophils # (Auto) 0.1 K/mm3 (0.0-0.4); Eosinophils % (Auto) 1.6 % (0.0-4.3); Hematocrit 25.8 % (30.3-42.9); Hemoglobin 8.6 gm/dl (10.1-14.3); Lymphocytes % (Auto) 11.4 % (13.4-35.0); Mean Corpuscular HGB Conc 33 % (30-34); Mean Corpuscular Volume 94 fl (79-97); Monocytes # (Auto) 0.8 K/mm3 (0.0-0.8); Monocytes % (Auto) 8.8 % (0.0-7.3); Platelet Count 190 K/mm3 (140-440); Red Blood Count 2.75 M/mm3 (3.65-5.03); Red Cell Distribution Width 16.9 % (13.2-15.2)
[2019-03-07 05:45] LABS: Calcium 9.3 mg/dL (8.4-10.2)
[2019-03-07] MEDS ORDERED: DIABETA PO SCH (08:00)
--- NOTE | 2019-03-07 09:39 | Consultation ---
History of Present Illness - History of Present Illness My assessment and plan are as follows Renal failure in a patient who recently was admitted for acute kidney injury, sonogram showed no evidence of any hydronephrosis, baseline creatinine was 0.9 as of January 2019, Patient has had acute kidney injury at [facility] serum creatinine was 2.17 upon discharge Urinalysis shows no evidence of any hematuria, trace proteinuria January 2019 vasculitic workup negative, immunofixation normal Shortness of breath volume overload pulmonary edema, ejection fraction was more than 55% and the previous echocardiogram at [facility] Evidence of bilateral pulmonary edema Anemia: Multifactorial current hemoglobin 8.6 platelet count normal History of acute osteomyelitis of the left foot Multiple other comorbidities for chronic kidney disease including hypertension and diabetes diet lifestyle etc. Hyperkalemia, improving well at this time we'll continue to monitor Fluid restriction sodium restriction, proper renal and diabetic diet Diuretics as tolerated close follow-up Patient has been adequately counseled and educated regarding all the renal related issues Renal care plan was discussed with patient Prognosis remains guarded at this time We'll continue to follow and make recommendation from renal standpoint She have any questions please feel free to contact me at [phone] Clark Mondragon M.D. [facility], [address] [place] [id number] History of presenting illness Patient is 63-year-old female who is currently established in our clinic and is currently being followed by Dr. Pepper, she has recently been diagnosed with acute renal failure and was at [facility] she was sent to the hospital due to increasing shortness of breath, as well as hyperkalemia. Has noted worsening of the swelling which was generalized, she has also not been following a proper diet i.e., renal diet I saw the patient with my Spanish speaking dialysis nurse Tab Sommer around the dialysis unit and did not had any language barrier, felt reinterpret the conversation Past medical history: Acute renal failure Diabetes mellitus type 2 Swelling both lower extremity Current allergies: None Home medication present medication: Reviewed Social history, family history: Reviewed Review of systems worsening swelling both lower extremity shortness of breath and fluid retention Patient has not been taking any follow-up nonsteroidal drugs or any follow-up JOSELO inhibitor or angiotensin receptor lynne She is not aware for proper renal diet All other review of systems negative Physical examination: General: No acute distress HEENT: Oral mucosa moist no icterus, no facial swelling Neck: Supple no thyromegaly no lymphadenopathy no JVD Chest: Few bilateral basilar crackles Heart: Regular rate and rhythm S1-S2 heard no S3-S4 Abdomen: Soft nontender no organomegaly no masses palpable no renal bruit no suprapubic masses no CVA tenderness Dermatology: No skin rashes noted Extremity: 1-2 peripheral edema, dry skin no petechial rashes Musculoskeletal: No joint effusion noted in knee and ankle area Psych: No evidence of agitation and aggression noted Neurological: Alert awake follows commands no tremors no myoclonus Back: No CVA tenderness Medications and Allergies Allergies Allergy/AdvReac Type Severity Reaction Status Date / Time No Known Allergies Allergy Verified 11/11/17 20:53 Home Medications Medication Instructions Recorded Confirmed Last Taken Type amLODIPine [Norvasc] 5 mg PO DAILY 03/09/17 03/06/19 03/05/19 History Aspirin [Aspirin BABY CHEW TAB] 81 mg PO QDAY #30 tab.chew 02/17/19 03/06/19 03/05/19 Rx Docusate Sodium [Colace CAP] 100 mg PO BID #20 capsule 02/17/19 03/06/19 03/06/19 Rx amLODIPine [Norvasc] 10 mg PO QDAY #30 tablet 02/17/19 03/06/19 03/05/19 Rx glyBURIDE [Diabeta] 5 mg PO DAILY #30 tablet 02/17/19 03/06/19 03/05/19 Rx Active Meds: Active Medications Acetaminophen (Tylenol) 650 mg PO Q4H PRN PRN Reason: Pain MILD(1-3)/Fever >100.5/WHITEHEAD Amlodipine Besylate (Norvasc) 10 mg PO QDAY ALESSANDRO Aspirin (Baby Aspirin) 81 mg PO QDAY ALESSANDRO Docusate Sodium (Colace) 100 mg PO BID ALESSANDRO Last Admin: 03/06/19 23:26 Dose: Not Given Documented by: Famotidine (Pepcid) 20 mg PO QAM ALESSANDRO Glyburide (Diabeta) 5 mg PO QDDIAB ALESSANDRO Hydromorphone HCl (Dilaudid) 0.5 mg IV Q3H PRN PRN Reason: Pain , Severe (7-10) Sodium Chloride (Nacl 0.9% 1000 Ml) 1,000 mls @ 75 mls/hr IV DIRECT ALESSANDRO Stop: 03/07/19 11:00 Last Admin: 03/07/19 06:19 Dose: 75 mls/hr Documented by: Insulin Human Lispro (Humalog) 0 unit SUB-Q ACHS ALESSANDRO; Protocol Metoclopramide HCl (Reglan) 5 mg IV Q6H PRN PRN Reason: Nausea And Vomiting Ondansetron HCl (Zofran) 4 mg IV Q8H PRN PRN Reason: Nausea And Vomiting Oxycodone/Acetaminophen (Percocet 5/325) 1 tab PO Q6H PRN PRN Reason: Pain, Moderate (4-6) Sodium Chloride (Sodium Chloride Flush Syringe 10 Ml) 10 ml IV BID ALESSANDRO Sodium Chloride (Sodium Chloride Flush Syringe 10 Ml) 10 ml IV PRN PRN PRN Reason: LINE FLUSH Exam - Vital Signs Vital signs: Vital Signs Temp Pulse Resp BP Pulse Ox 98.6 F 100 H 20 146/72 92 03/06/19 13:42 03/06/19 13:42 03/06/19 13:42 03/06/19 13:42 03/06/19 13:42 Results - Lab Results 03/08/19 03:25 03/08/19 03:25 Most recent lab results Calcium 9.3 mg/dL (8.4-10.2) 03/07/19 03:19
[2019-03-07] MEDS: PEPCID PO SCH (10:37)
[2019-03-07] MEDS: COLACE PO SCH ×2 (10:37→22:12)
[2019-03-07] MEDS: BABY ASPIRIN PO SCH (10:37)
[2019-03-07] MEDS: SODIUM CHLORIDE FLUSH SYRINGE 10 ML IV SCH ×2 (10:37→22:13)
[2019-03-07] MEDS: NORVASC PO SCH (10:37)
--- NOTE | 2019-03-07 14:21 | Progress Note ---
Assessment and Plan Assessment and plan: Patient is a 63 year-old Urdu speaking woman with a history of hypertension, DM type 2, DHF, Diabetic foot ulcer status post debridement of left second toe, who presents to [facility] sent by her Clinical Lab Scientist for increasing creatinine and high potassium. ARF: IV fluids for now, Nephrology consult, Last creatinine was 5.5 on 02/17/2019, Gentle hydration which may be stopped tomorrow if necessary Hyperkalemia: IV calcium gluconate given, Kayexalate not given, Recheck potassium Hypertension: Continue antihypertensives T2DM (type 2 diabetes mellitus): Continue oral hypoglycemics and coverage DVT prophylaxis: On heparin and GI prophylaxis History Interval history: Patient was seen and examined. Follow-up on current diagnosis ARF. No overnight events reported to me. Patient denies any chest pain, shortness breath, nausea/vomiting or severe headaches. Imaging, nursing note, chart, labs and old chart reviewed. Discussed with patient. Hospitalist Physical - Physical exam Narrative exam: Gen: WDWN, NAD, Awake, Alert, Orientated HEENT: NCAT, EOMI, PERRL, OP Clear Neck: supple, no adenopathy, no thyromegaly, no JVD CVS/Heart: RRR, normal S1S2, pulses present bilaterally Chest/Lungs: CTA B, Symmetrical chest expansion, good air entry bilaterally GI/Abdomen: soft, NTND, good bowel sounds, no guarding or rebound /Bladder: no suprapubic tenderness, no CVA or paraspinal tenderness Extermity/Skin: no c/c/e, no obvious rash MSK: FROM x 4 Neuro: CN 2-12 grossly intact except vision, no new focal deficits Psych: calm - Constitutional Vitals: Temp Pulse Resp BP Pulse Ox 98.3 F 99 H 16 136/57 95 03/07/19 07:25 03/07/19 07:25 03/07/19 07:25 03/07/19 07:25 03/07/19 07:25 General appearance: Present: no acute distress, well-nourished Results - Labs CBC & Chem 7: 03/07/19 03:19 03/07/19 03:19 Labs: Laboratory Last Values WBC 8.9 K/mm3 (4.5-11.0) 03/07/19 03:19 RBC 2.75 M/mm3 (3.65-5.03) L 03/07/19 03:19 Hgb 8.6 gm/dl (10.1-14.3) L 03/07/19 03:19 Hct 25.8 % (30.3-42.9) L 03/07/19 03:19 MCV 94 fl (79-97) 03/07/19 03:19 MCH 31 pg (28-32) 03/07/19 03:19 MCHC 33 % (30-34) 03/07/19 03:19 RDW 16.9 % (13.2-15.2) H 03/07/19 03:19 Plt Count 190 K/mm3 (140-440) 03/07/19 03:19 Lymph % (Auto) 11.4 % (13.4-35.0) L 03/07/19 03:19 [place] % (Auto) 8.8 % (0.0-7.3) H 03/07/19 03:19 Eos % (Auto) 1.6 % (0.0-4.3) 03/07/19 03:19 Baso % (Auto) 0.5 % (0.0-1.8) 03/07/19 03:19 Lymph # 1.0 K/mm3 (1.2-5.4) L 03/07/19 03:19 [place] # 0.8 K/mm3 (0.0-0.8) 03/07/19 03:19 Eos # 0.1 K/mm3 (0.0-0.4) 03/07/19 03:19 Baso # 0.0 K/mm3 (0.0-0.1) 03/07/19 03:19 Seg Neutrophils % 77.7 % (40.0-70.0) H 03/07/19 03:19 Seg Neutrophils # 6.9 K/mm3 (1.8-7.7) 03/07/19 03:19 Sodium 140 mmol/L (137-145) 03/07/19 03:19 Potassium 4.7 mmol/L (3.6-5.0) 03/07/19 03:19 Chloride 101.4 mmol/L (98-107) 03/07/19 03:19 Carbon Dioxide 22 mmol/L (22-30) 03/07/19 03:19 21 mmol/L 03/07/19 03:19 BUN 57 mg/dL (7-17) H 03/07/19 03:19 2.9 mg/dL (0.7-1.2) H 03/07/19 03:19 Estimated GFR 16 ml/min 03/07/19 03:19 20 % 03/07/19 03:19 Glucose 83 mg/dL (65-100) 03/07/19 03:19 POC Glucose 84 (70-105) 03/07/19 11:49 5.4 % (4-6) 03/06/19 23:09 Calcium 9.3 mg/dL (8.4-10.2) 03/07/19 03:19 0.40 mg/dL (0.1-1.2) 03/06/19 14:38 AST 48 units/L (5-40) H 03/06/19 14:38 ALT 111 units/L (7-56) H 03/06/19 14:38 131 units/L (35-129) H 03/06/19 14:38 0.017 ng/mL (0.00-0.029) 03/06/19 14:38 NT-Pro-B Natriuret Pep 2175 pg/mL (0-900) H 03/06/19 14:38 7.2 g/dL (6.3-8.2) 03/06/19 14:38 3.7 g/dL (3.9-5) L 03/06/19 14:38 1.1 % 03/06/19 14:38 Yellow (Yellow) 03/06/19 14:36 Clear (Clear) 03/06/19 14:36 5.0 (5.0-7.0) 03/06/19 14:36 Ur Specific [place] 1.010 (1.003-1.030) 03/06/19 14:36 30 mg/dl mg/dL (Negative) 03/06/19 14:36 Neg mg/dL (Negative) 03/06/19 14:36 Neg mg/dL (Negative) 03/06/19 14:36 Neg (Negative) 03/06/19 14:36 Neg (Negative) 03/06/19 14:36 Neg (Negative) 03/06/19 14:36 < 2.0 mg/dL (<2.0) 03/06/19 14:36 Ur Leukocyte Esterase Tr (Negative) 03/06/19 14:36 4.0 /HPF (0.0-6.0) 03/06/19 14:36 2.0 /HPF (0.0-6.0) 03/06/19 14:36 U Epithel Cells (Auto) 1.0 /HPF (0-13.0) 03/06/19 14:36 Active Medications - Current Medications Current Medications: Generic Name Dose Route Start Last Admin Trade Name Freq PRN Reason Stop Dose Admin Acetaminophen 650 mg 03/06/19 22:48 Tylenol PO Q4H PRN Pain MILD(1-3)/Fever >100.5/WHITEHEAD Amlodipine Besylate 10 mg 03/07/19 10:00 03/07/19 10:37 Norvasc PO 10 mg QDAY ALESSANDRO Administration Aspirin 81 mg 03/07/19 10:00 03/07/19 10:37 Baby Aspirin PO 81 mg QDAY ALESSANDRO Administration Docusate Sodium 100 mg 03/06/19 23:00 03/07/19 10:37 Colace PO 100 mg BID ALESSANDRO Administration Famotidine 20 mg 03/07/19 10:00 03/07/19 10:37 Pepcid PO 20 mg QAM ALESSANDRO Administration Glyburide 5 mg 03/07/19 08:00 Diabeta PO QDDIAB ALESSANDRO Hydromorphone HCl 0.5 mg 03/06/19 22:49 Dilaudid IV Q3H PRN Pain , Severe (7-10) Insulin Human Lispro 0 unit 03/07/19 07:30 Humalog SUB-Q ACHS [facility] Protocol Metoclopramide HCl 5 mg 03/06/19 22:49 Reglan IV Q6H PRN Nausea And Vomiting Ondansetron HCl 4 mg 03/06/19 22:48 Zofran IV Q8H PRN Nausea And Vomiting Oxycodone/Acetaminophen 1 tab 03/06/19 22:49 Percocet 5/325 PO Q6H PRN Pain, Moderate (4-6) Sodium Chloride 10 ml 03/07/19 10:00 03/07/19 10:37 Sodium Chloride Flush Syringe 10 Ml IV 10 ml BID ALESSANDRO Administration Sodium Chloride 10 ml 03/06/19 22:48 Sodium Chloride Flush Syringe 10 Ml IV PRN PRN LINE FLUSH
[2019-03-07] MEDS: HumaLOG SUB-Q SCH (22:12)
[2019-03-08 04:18] LABS: Hematocrit 26.3 % (30.3-42.9); Hemoglobin 8.7 gm/dl (10.1-14.3); Mean Corpuscular HGB Conc 33 % (30-34); Mean Corpuscular Volume 94 fl (79-97); Platelet Count 179 K/mm3 (140-440); Red Blood Count 2.79 M/mm3 (3.65-5.03); Red Cell Distribution Width 16.9 % (13.2-15.2)
[2019-03-08 04:31] LABS: Calcium 8.8 mg/dL (8.4-10.2)
[2019-03-08] MEDS: COLACE PO SCH ×2 (09:10→22:50)
[2019-03-08] MEDS: PEPCID PO SCH (09:10)
[2019-03-08] MEDS: BABY ASPIRIN PO SCH (09:11)
[2019-03-08] MEDS: HumaLOG SUB-Q SCH ×3 (09:11→22:55)
--- NOTE | 2019-03-08 09:19 | Progress Note ---
Subjective Interval history: Patient was seen today for follow-up on multiple renal related issues Events of this hospitalization were noted She is feeling much better Interdisciplinary notes were also reviewed Vitals intake output medications were reviewed Past medical history: Reviewed Family, social history: Reviewed Allergies: Reviewed Physical examination General: No acute distress Vitals: Reviewed HEENT: Oral mucosa moist no icterus Neck: Supple no thyromegaly nodular mass or JVD Chest: Clear to auscultation anteriorly Heart: Regular rate and rhythm S1-S2 heard no S3-S4 Abdomen: Soft nontender no suprapubic masses no organomegaly Extremity: Dry skin approximately 1+ edema Psych: No evidence of any agitation and aggression noted Derm: No petechial rash Assessment and plan: Acute kidney injury: The renal function appears to be improving creatinine is currently 2.7 potassium has normalized 4.1 Patient is to see dietitian, to follow a proper diabetic and renal diet, she also needs to be in fluid restriction sodium restriction Volume overload, renal failure, would like to place her on Lasix 40 mg once a day Hyperkalemia: Patient needs to be educated through a dietitian she also require handout to be given Hyponatremia, with volume overload currently doing better, IV fluid has been discontinued Anemia in the setting of renal failure: This is multifactorial at this point would like to give her 1 dose of erythropoietin however/ No more than 1200 mL per day for now she can be seen in the office for follow-up next week Patient should not be given any follow-up nonsteroidal drugs, JOSELO inhibitor, angiotensin receptor lynne She can be seen in our office for follow-up tomorrow Prognosis: Guarded, d/w son Philipp today on [phone] to comply with fluid sodium and potassium We'll continue to follow and make recommendation from renal standpoint Objective - Vital Signs Vital signs: Vital Signs - 12hr 03/07/19 03/08/19 03/08/19 23:25 00:00 04:22 Temperature 98.3 F 97.9 F Pulse Rate 98 H 98 H 95 H Respiratory 18 18 Rate Blood Pressure 141/72 140/65 O2 Sat by Pulse 97 95 Oximetry - Lab 03/08/19 03:25 03/08/19 03:25 Most recent lab results Calcium 8.8 mg/dL (8.4-10.2) 03/08/19 03:25 Medications & Allergies - Medications Allergies/Adverse Reactions: Allergies No Known Allergies Allergy (Verified 11/11/17 20:53) Home Medications: Home Medications Medication Instructions Recorded Confirmed Last Taken Type amLODIPine [Norvasc] 5 mg PO DAILY 03/09/17 03/06/19 03/05/19 History Aspirin [Aspirin BABY CHEW TAB] 81 mg PO QDAY #30 tab.chew 02/17/19 03/06/19 03/05/19 Rx Docusate Sodium [Colace CAP] 100 mg PO BID #20 capsule 02/17/19 03/06/19 03/06/19 Rx amLODIPine [Norvasc] 10 mg PO QDAY #30 tablet 02/17/19 03/06/19 03/05/19 Rx Furosemide [Lasix TAB] 40 mg PO QDAY #30 tablet 03/08/19 Unknown Rx glipiZIDE [Glucotrol] 0.5 tab PO QDAY #30 tablet 03/08/19 Unknown Rx Active Medications: Generic Name Dose Route Start Last Admin Trade Name Freq PRN Reason Stop Dose Admin Acetaminophen 650 mg 03/06/19 22:48 Tylenol PO Q4H PRN Pain MILD(1-3)/Fever >100.5/WHITEHEAD Amlodipine Besylate 10 mg 03/07/19 10:00 03/07/19 10:37 Norvasc PO 10 mg QDAY ALESSANDRO Administration Aspirin 81 mg 03/07/19 10:00 03/08/19 09:11 Baby Aspirin PO 81 mg QDAY ALESSANDRO Administration Docusate Sodium 100 mg 03/06/19 23:00 03/08/19 09:10 Colace PO 100 mg BID ALESSANDRO Administration Famotidine 20 mg 03/07/19 10:00 03/08/19 09:10 Pepcid PO 20 mg QAM ALESSANDRO Administration Hydromorphone HCl 0.5 mg 03/06/19 22:49 Dilaudid IV Q3H PRN Pain , Severe (7-10) Insulin Human Lispro 0 unit 03/07/19 07:30 03/08/19 09:11 Humalog SUB-Q 3 unit ACHS ALESSANDRO Administration Protocol Metoclopramide HCl 5 mg 03/06/19 22:49 Reglan IV Q6H PRN Nausea And Vomiting Ondansetron HCl 4 mg 03/06/19 22:48 Zofran IV Q8H PRN Nausea And Vomiting Oxycodone/Acetaminophen 1 tab 03/06/19 22:49 Percocet 5/325 PO Q6H PRN Pain, Moderate (4-6) Sodium Chloride 10 ml 03/07/19 10:00 03/07/19 22:13 Sodium Chloride Flush Syringe 10 Ml IV 10 ml BID ALESSANDRO Administration Sodium Chloride 10 ml 03/06/19 22:48 Sodium Chloride Flush Syringe 10 Ml IV PRN PRN LINE FLUSH
[2019-03-08] MEDS: NORVASC PO SCH (09:23)
--- NOTE | 2019-03-08 12:22 | Discharge Summary ---
Providers - Providers Date of Admission: 03/06/19 16:21 Date of discharge: 03/09/19 Attending physician: FATOU TAYLOR 03/06/19 16:11 Consult to Physician [CONS] Stat Comment: Consulting Provider: NATHANIEL BENITEZ Physician Instructions: Reason For Exam: SOB, CKD 03/08/19 09:19 Consult to Dietitian/Nutrition [CONS] Routine Physician Instructions: the renal diabetic diet/ low potassium diet Reason For Exam: Reason for Consult: Diet education Primary care physician: DEBORA YI Hospitalization Condition: Stable Hospital course: Patient is a 63 year-old Ivorian speaking woman with a history of hypertension, DM type 2, DHF, Diabetic foot ulcer status post debridement of left second toe, who presents to [facility] ED sent by her Investigator [employer] for increasing creatinine and high potassium. Discharge Diagnoses: ARF: IV fluids for now, Nephrology consult, Last creatinine was 5.5 on 0 02/17/2019, Cr now 2.7 Hyperkalemia: treated Hypertension: Continue antihypertensives Hypoglycemia: stop glipizide, use SSI T2DM (type 2 diabetes mellitus): DVT prophylaxis: On heparin and GI prophylaxis Disposition: DC-01 TO HOME OR SELFCARE Time spent for discharge: 32 minutes Core Measure Documentation - Palliative Care Palliative Care/ Comfort Measures: Not Applicable - Core Measures Any of the following diagnoses?: none - VTE Discharge Requirements Deep Vein Thrombosis/Pulmonary Embolism Present on Admission: No Has pt received <5 days of overlap therapy or INR<2.0: No Anticoagulant overlap therapy prescribed at discharge: No Contraindication No Overlap Therapy order at DC: Not Indicated Exam - Physical Exam Narrative exam: Gen: WDWN, NAD, Awake, Alert, Orientated HEENT: NCAT, EOMI, PERRL, OP Clear Neck: supple, no adenopathy, no thyromegaly, no JVD CVS/Heart: RRR, normal S1S2, pulses present bilaterally Chest/Lungs: CTA B, Symmetrical chest expansion, good air entry bilaterally GI/Abdomen: soft, NTND, good bowel sounds, no guarding or rebound /Bladder: no suprapubic tenderness, no CVA or paraspinal tenderness Extermity/Skin: no c/c/e, no obvious rash MSK: FROM x 4 Neuro: CN 2-12 grossly intact except vision, no new focal deficits Psych: calm - Constitutional Vitals: Temp Pulse Resp BP Pulse Ox 97.6 F 97 H 16 135/66 97 03/08/19 09:17 03/08/19 09:23 03/08/19 09:22 03/08/19 09:23 03/08/19 09:23 Plan Activity: other (no strenous activities unless cleared by PCP) Diet: diabetic, renal Special Instructions: record daily BP diary, record blood sugar diary (three times a day) Follow up with: DEBORA YI MD [Primary Care Provider] - 3-5 Days EMILY ROLDAN MD [Staff Physician] - 03/09/19 JUDE WISE MD [Staff Physician] - 7 Days Prescriptions: Lispro Insulin [HumaLOG] 1 dose SUB-Q ACHS PRN #1 vial PRN Reason: Hyperglycemia Furosemide [Lasix TAB] 40 mg PO QDAY #30 tablet
[2019-03-08] MEDS: LASIX PO SCH (12:27)
[2019-03-08] MEDS: SODIUM CHLORIDE FLUSH SYRINGE 10 ML IV SCH ×2 (12:29→22:50)
[2019-03-08] MEDS ORDERED: PROCRIT SUB-Q ONE (13:00)
--- NOTE | 2019-03-08 16:07 | Progress Note ---
Assessment and Plan Assessment and plan: Patient is a 63 year-old American speaking woman with a history of hypertension, DM type 2, DHF, Diabetic foot ulcer status post debridement of left second toe, who presents to [facility] sent by her Utility Bill Complaints Investigator for increasing creatinine and high potassium. ARF: IV fluids for now, Nephrology consult, Last creatinine was 5.5 on 02/17/2019, Gentle hydration which may be stopped tomorrow if necessary Hyperkalemia: IV calcium gluconate given, Kayexalate not given, Recheck potassium Hypertension: Continue antihypertensives T2DM (type 2 diabetes mellitus): sSI coverage DVT prophylaxis: On heparin and GI prophylaxis Hypoglycemia: treat with IV dextrose, stop glizide Discharge held due to hypoglycemia History Interval history: Patient was seen and examined. Follow-up on current diagnosis ARF. No overnight events reported to me. Patient denies any chest pain, shortness breath, nausea/vomiting or severe headaches. Imaging, nursing note, chart, labs and old chart reviewed. Discussed with patient. Son Philipp at bedside. Patient weak and lethargic. Patient weaned off O2. Son refuse to take mother home and states that her blood sugars are low, we checked it and BG was 48. So, discharge held, 1 amp of Dextrose given, d/c glipizide Hospitalist Physical - Physical exam Narrative exam: Gen: WDWN, NAD, Awake, Alert, Orientated HEENT: NCAT, EOMI, PERRL, OP Clear Neck: supple, no adenopathy, no thyromegaly, no JVD CVS/Heart: RRR, normal S1S2, pulses present bilaterally Chest/Lungs: CTA B, Symmetrical chest expansion, good air entry bilaterally GI/Abdomen: soft, NTND, good bowel sounds, no guarding or rebound /Bladder: no suprapubic tenderness, no CVA or paraspinal tenderness Extermity/Skin: no obvious rash MSK: FROM x 4 Neuro: CN 2-12 grossly intact except vision, no new focal deficits Psych: calm - Constitutional Vitals: Temp Pulse Resp BP Pulse Ox 98.6 F 95 H 19 129/61 96 03/08/19 12:19 03/08/19 12:19 03/08/19 12:19 03/08/19 12:19 03/08/19 12:19 General appearance: Present: no acute distress, well-nourished Results - Labs CBC & Chem 7: 03/08/19 03:25 03/08/19 03:25 Labs: Laboratory Last Values WBC 7.1 K/mm3 (4.5-11.0) 03/08/19 03:25 RBC 2.79 M/mm3 (3.65-5.03) L 03/08/19 03:25 Hgb 8.7 gm/dl (10.1-14.3) L 03/08/19 03:25 Hct 26.3 % (30.3-42.9) L 03/08/19 03:25 MCV 94 fl (79-97) 03/08/19 03:25 MCH 31 pg (28-32) 03/08/19 03:25 MCHC 33 % (30-34) 03/08/19 03:25 RDW 16.9 % (13.2-15.2) H 03/08/19 03:25 Plt Count 179 K/mm3 (140-440) 03/08/19 03:25 Lymph % (Auto) 11.4 % (13.4-35.0) L 03/07/19 03:19 [place] % (Auto) 8.8 % (0.0-7.3) H 03/07/19 03:19 Eos % (Auto) 1.6 % (0.0-4.3) 03/07/19 03:19 Baso % (Auto) 0.5 % (0.0-1.8) 03/07/19 03:19 Lymph # 1.0 K/mm3 (1.2-5.4) L 03/07/19 03:19 [place] # 0.8 K/mm3 (0.0-0.8) 03/07/19 03:19 Eos # 0.1 K/mm3 (0.0-0.4) 03/07/19 03:19 Baso # 0.0 K/mm3 (0.0-0.1) 03/07/19 03:19 Seg Neutrophils % 77.7 % (40.0-70.0) H 03/07/19 03:19 Seg Neutrophils # 6.9 K/mm3 (1.8-7.7) 03/07/19 03:19 Sodium 144 mmol/L (137-145) 03/08/19 03:25 Potassium 4.1 mmol/L (3.6-5.0) 03/08/19 03:25 Chloride 105.2 mmol/L (98-107) 03/08/19 03:25 Carbon Dioxide 26 mmol/L (22-30) 03/08/19 03:25 17 mmol/L 03/08/19 03:25 BUN 51 mg/dL (7-17) H 03/08/19 03:25 2.7 mg/dL (0.7-1.2) H 03/08/19 03:25 Estimated GFR 18 ml/min 03/08/19 03:25 19 % 03/08/19 03:25 Glucose 52 mg/dL (65-100) L 03/08/19 03:25 POC Glucose 159 (70-105) H 03/08/19 11:36 5.4 % (4-6) 03/06/19 23:09 Calcium 8.8 mg/dL (8.4-10.2) 03/08/19 03:25 0.40 mg/dL (0.1-1.2) 03/06/19 14:38 AST 48 units/L (5-40) H 03/06/19 14:38 ALT 111 units/L (7-56) H 03/06/19 14:38 131 units/L (35-129) H 03/06/19 14:38 0.017 ng/mL (0.00-0.029) 03/06/19 14:38 NT-Pro-B Natriuret Pep 2175 pg/mL (0-900) H 03/06/19 14:38 7.2 g/dL (6.3-8.2) 03/06/19 14:38 3.7 g/dL (3.9-5) L 03/06/19 14:38 1.1 % 03/06/19 14:38 Yellow (Yellow) 03/06/19 14:36 Clear (Clear) 03/06/19 14:36 5.0 (5.0-7.0) 03/06/19 14:36 Ur Specific [place] 1.010 (1.003-1.030) 03/06/19 14:36 30 mg/dl mg/dL (Negative) 03/06/19 14:36 Neg mg/dL (Negative) 03/06/19 14:36 Neg mg/dL (Negative) 03/06/19 14:36 Neg (Negative) 03/06/19 14:36 Neg (Negative) 03/06/19 14:36 Neg (Negative) 03/06/19 14:36 < 2.0 mg/dL (<2.0) 03/06/19 14:36 Ur Leukocyte Esterase Tr (Negative) 03/06/19 14:36 4.0 /HPF (0.0-6.0) 03/06/19 14:36 2.0 /HPF (0.0-6.0) 03/06/19 14:36 U Epithel Cells (Auto) 1.0 /HPF (0-13.0) 03/06/19 14:36 Active Medications - Current Medications Current Medications: Generic Name Dose Route Start Last Admin Trade Name Freq PRN Reason Stop Dose Admin Acetaminophen 650 mg 03/06/19 22:48 Tylenol PO Q4H PRN Pain MILD(1-3)/Fever >100.5/WHITEHEAD Amlodipine Besylate 10 mg 03/07/19 10:00 03/08/19 09:23 Norvasc PO 10 mg QDAY ALESSANDRO Administration Aspirin 81 mg 03/07/19 10:00 03/08/19 09:11 Baby Aspirin PO 81 mg QDAY ALESSANDRO Administration Dextrose 25 ml 03/08/19 16:01 D50w (25gm) Syringe IV 03/08/19 16:02 ONCE ONE Docusate Sodium 100 mg 03/06/19 23:00 03/08/19 09:10 Colace PO 100 mg BID ALESSANDRO Administration Famotidine 20 mg 03/07/19 10:00 03/08/19 09:10 Pepcid PO 20 mg QAM ALESSANDRO Administration Furosemide 40 mg 03/08/19 12:00 03/08/19 12:27 Lasix PO 40 mg QDAY ALESSANDRO Administration Hydromorphone HCl 0.5 mg 03/06/19 22:49 Dilaudid IV Q3H PRN Pain , Severe (7-10) Insulin Human Lispro 0 unit 03/07/19 07:30 03/08/19 12:27 Humalog SUB-Q 2 unit ACHS ALESSANDRO Administration Protocol Metoclopramide HCl 5 mg 03/06/19 22:49 Reglan IV Q6H PRN Nausea And Vomiting Ondansetron HCl 4 mg 03/06/19 22:48 Zofran IV Q8H PRN Nausea And Vomiting Oxycodone/Acetaminophen 1 tab 03/06/19 22:49 Percocet 5/325 PO Q6H PRN Pain, Moderate (4-6) Sodium Chloride 10 ml 03/07/19 10:00 03/08/19 12:29 Sodium Chloride Flush Syringe 10 Ml IV 10 ml BID ALESSANDRO Administration Sodium Chloride 10 ml 03/06/19 22:48 Sodium Chloride Flush Syringe 10 Ml IV PRN PRN LINE FLUSH Nutrition/Malnutrition Assess - Dietary Evaluation Nutrition/Malnutrition Findings: Nutrition Notes Start: 03/08/19 11:13 Freq: Status: Active Protocol: Document 03/08/19 11:13 CW (Rec: 03/08/19 13:22 CW [id number]) Co-Sign 03/08/19 11:13 LP Nutrition Notes Need for Assessment generated from: MD Order,Education Initial or Follow up Assessment Current Diagnosis Acute Kidney Injury,Diabetes, Sepsis,Hypertension,Heart Failure Other Pertinent Diagnosis anemia; hyperkalemia; hyperglycemia; DVT, foot ulcer , LE edema Current Diet renal diabetic; low potassium Labs/Tests Hgb (8.7); Hct (26.3); POC Gluc (159); BUN (51); Creatnine (2.7) Pertinent Medications diabeta; zofran; lasix Height 5 ft 7 in Weight 85.5 kg Usual Body Weight 68 kg [place] Body Weight (kg) 61.36 BMI 29.5 Intake Prior to Admission Excellent Weight change and time frame 44 lbs wt gain in 18d (30% wt. gain) Weight Status Overweight Subjective/Other Information using UBW from 1 yr ago previous adm at 68kg Pt denies taking iron supplements at home Pt. knows how to follow a diabetic diet but is unsure of what a renal diet consists of . does not ave a glucose meter at home Eats well Pt. does not have a glucose meter Pt states swelling in face and feet Burn Absent Trauma Absent GI Symptoms None Food Allergy No Current % PO Good (75-100%) Minimum of two criteria No Fluid Accumulation Mild (non-severe) #2 Nutrition Diagnosis Limited adherence to nutrition -related recommendations Etiology R/T diet control of T2DM As Evidenced by Signs and Symptoms AEB insufficient understanding of carbohydrates' role in diabetes management, lack of glucose levels monitoring, high glucose levels (159), lack of consistant insulin use. #1 Nutrition Diagnosis Food and nutrition-related knowledge deficit Etiology R/T lack of knowledge regarding how diabetic diet influences renal functioning As Evidenced by Signs and Symptoms AEB POC gluc of 159, Creatnine of 2.7, BUN 51, absence of knowledge related to how unctrolled diabetes leads to kidney damage. Is patient on ventilator? No Is Patient Ambulatory and/or Out of Bed Yes REE-(Davie-St. Jeor-ambulatory/OOB) [ 1881.919 [id number]] Kcal/Kg value to use for calculation 30 Approximate Energy Requirements Using 2565 kcal/Kg Additional Notes Protein [id number] g (0.8-1. 2g/kgBW) Fluid Needs - 1mL/kcal Nutrition Intervention Change Diet Order: Continue Current Diet Order Teaching Recipient Patient,Family Learning Readiness Fair Teaching Methods Discussion,Handout Response to Teaching Verbalize understanding, Reinforcement needed Education Handouts Provided NIH - "Eating Right for Chronic Kidney Disease" in [place] [employer]- Diabetes in [place] Barriers to Learning Visual,Language,Financial RD phone number provided No Patient aware of follow up options Yes Actions To Overcome Barriers Contact Tool And Cutter Grinder, Collaboration with Other Providers Goal #1 Understand how uncontrolled diabetes is related to renal disease. Goal #2 understand why a glucose meter is needed and why glucose needs to be monitored Follow-Up By: 03/13/19 Additional Comments Follow up to see if she has discussed goals with son
[2019-03-08] MEDS ORDERED: D50W (25GM) Syringe IV ONE ×2 (17:00→19:11)
[2019-03-09 05:55] LABS: Calcium 8.6 mg/dL (8.4-10.2)
[2019-03-09] MEDS: HumaLOG SUB-Q SCH ×3 (09:03→15:12)
[2019-03-09 09:46] VITALS: BP 148/69
[2019-03-09] MEDS: BABY ASPIRIN PO SCH (09:46)
[2019-03-09] MEDS: PEPCID PO SCH (09:46)
[2019-03-09] MEDS: COLACE PO SCH (09:46)
[2019-03-09] MEDS: LASIX PO SCH (09:46)
[2019-03-09] MEDS: NORVASC PO SCH (09:46)
[2019-03-09] MEDS: SODIUM CHLORIDE FLUSH SYRINGE 10 ML IV SCH (09:47)
== END 2019-03-09 16:16 | disposition home or self-care (01) | DRG 682 ==
LOC: ED 13:32 → 4A 16:21
PROVIDERS: ADMIT Internal Medicine; ATTEND Internal Medicine
DX: N17.9 Acute kidney failure, unspecified (principal); I50.33 Acute on chronic diastolic (congestive) heart failure; E87.1 Hypo-osmolality and hyponatremia; I13.0 Hypertensive heart and chronic kidney disease with heart failure and stage 1 through stage 4 chronic kidney disease, or unspecified chronic kidney disease; E87.5 Hyperkalemia; E11.649 Type 2 diabetes mellitus with hypoglycemia without coma; E11.22 Type 2 diabetes mellitus with diabetic chronic kidney disease; N18.9 Chronic kidney disease, unspecified; D64.9 Anemia, unspecified; Z79.82 Long term (current) use of aspirin; Z79.899 Other long term (current) drug therapy; Z82.49 Family history of ischemic heart disease and other diseases of the circulatory system
CPT/HCPCS: 36415; 71045; 80048; 80053; 81001; 82962; 83036; 83880; 84484; 85025; 85027; 87116; 93005; 93010; 96365; 96375; G0378; J0885; J1815; J1940; J7030

== ENCOUNTER 2019-10-14 09:14 | Emergency (ER) | payer OTHER ==
[2019-10-14 09:47] VITALS: BP 198/111
[2019-10-14] MEDS ORDERED: TETANUS,DIPH,PERTUSS(ACELL) VACCINE 0.5 ML SYRINGE IM ONE (10:25)
--- NOTE | 2019-10-14 10:25 | Emergency Department Report ---
ED Animal Bite HPI - General Chief Complaint: Animal Bite Stated Complaint: ANIMAL BITE Time Seen by Provider: 10/14/19 09:33 Source: patient, family Mode of arrival: Ambulatory Limitations: Language Barrier - History of Present Illness Initial Comments: This is a 64-year-old female who presents to the emergency room with a right bite to right eyebrow. Past medical history of diabetes, hypertension, chronic kidney disease. Patient states around it bit her 3 times around 0600 a.m. this morning. She is unsure of her last tetanus vaccine. States "I don't want to get rabies". Admits to swelling and redness around the bite site. Patient also reports painful to touch. Denies visual changes, headache, numbness or tingling, drainage from site. MD Complaint: animal bite -: This morning Time: 06:00 Location: face (right eyebrow) Animal: rodent Animal Control Notified: No Description: immunizations unknown Mechanism: bite Context: unprovoked, possible exposure while a Associated Symptoms: erythema, bleeding. denies: fever, chills, rash, loss of consciousness, cough, headache, diaphoresis, shortness of breath Treatments Prior to Arrival: irrigation - Related Data Patient Tetanus UTD: No Home Medications Medication Instructions Recorded Confirmed Last Taken amLODIPine 5 mg PO DAILY 03/09/17 03/06/19 03/05/19 Previous Rx's Medication Instructions Recorded Last Taken Type Aspirin [Aspirin BABY CHEW TAB] 81 mg PO QDAY #30 tab.chew 02/17/19 03/05/19 Rx Docusate Sodium [Colace CAP] 100 mg PO BID #20 capsule 02/17/19 03/06/19 Rx amLODIPine 10 mg PO QDAY #30 tablet 02/17/19 03/05/19 Rx Furosemide [Lasix TAB] 40 mg PO QDAY #30 tablet 03/08/19 Unknown Rx Lispro Insulin [HumaLOG] 1 dose SUB-Q ACHS PRN #1 vial 03/09/19 Unknown Rx Amoxicillin/Potassium Clav 1 each PO BID #14 tablet 10/14/19 Unknown Rx [Augmentin 875-125 Tablet] Allergies Allergy/AdvReac Type Severity Reaction Status Date / Time No Known Allergies Allergy Verified 11/11/17 20:53 ED Review of Systems ROS: Stated complaint: ANIMAL BITE Other details as noted in HPI Constitutional: denies: chills, fever Respiratory: denies: cough, shortness of breath, wheezing Cardiovascular: denies: chest pain, palpitations Gastrointestinal: denies: abdominal pain, nausea, diarrhea Skin: lesions (Puncture wound to right eyebrow). denies: rash Neurological: denies: headache, weakness, paresthesias Psychiatric: denies: anxiety, depression ED Past Medical Hx - Past Medical History Previous Medical History?: Yes Hx Hypertension: Yes Hx Heart Attack/AMI: No Hx Congestive Heart Failure: No Hx Diabetes: Yes Hx Asthma: No Hx COPD: No Hx HIV: No - Surgical History Hx Pacemaker: No Hx Internal Defibrillator: No Hx Breast Surgery: Yes (Mass removed from right under arm.) Additional Surgical History: Mass removed from under right arm. C- Section - Social History Smoking Status: Never Smoker - Medications Home Medications: Home Medications Medication Instructions Recorded Confirmed Last Taken Type amLODIPine 5 mg PO DAILY 03/09/17 03/06/19 03/05/19 History Aspirin [Aspirin BABY CHEW TAB] 81 mg PO QDAY #30 tab.chew 02/17/19 03/06/19 03/05/19 Rx Docusate Sodium [Colace CAP] 100 mg PO BID #20 capsule 02/17/19 03/06/19 03/06/19 Rx amLODIPine 10 mg PO QDAY #30 tablet 02/17/19 03/06/19 03/05/19 Rx Furosemide [Lasix TAB] 40 mg PO QDAY #30 tablet 03/08/19 Unknown Rx Lispro Insulin [HumaLOG] 1 dose SUB-Q ACHS PRN #1 vial 03/09/19 Unknown Rx Amoxicillin/Potassium Clav 1 each PO BID #14 tablet 10/14/19 Unknown Rx [Augmentin 875-125 Tablet] ED Physical Exam - General Limitations: Language Barrier General appearance: alert, in no apparent distress - Eye Eye exam: Present: PERRL, EOMI. Absent: conjunctival injection, nystagmus, periorbital swelling, periorbital tenderness Pupils: Present: normal accommodation - Respiratory Respiratory exam: Present: normal lung sounds bilaterally. Absent: respiratory distress - Cardiovascular Cardiovascular Exam: Present: regular rate, normal rhythm. Absent: systolic murmur, diastolic murmur, rubs, gallop - GI/Abdominal GI/Abdominal exam: Present: soft, normal bowel sounds - Extremities Exam Extremities exam: Present: normal inspection - Neurological Exam Neurological exam: Present: alert, oriented X3 - Psychiatric Psychiatric exam: Present: normal affect, normal mood - Skin Skin exam: Present: warm, dry, normal color, other (2 to 3 mm puncture wounds x 4 to the right eyebrow, swelling, erythema, and TTP. No drainage). Absent: intact, rash ED Course Vital Signs 10/14/19 10/14/19 09:20 09:34 Temperature 97.9 F 97.9 F Pulse Rate 85 85 Respiratory 20 16 Rate Blood Pressure 168/97 Blood Pressure 198/111 [Right] O2 Sat by Pulse 99 97 Oximetry - Reevaluation(s) Reevaluation #1: 10/14/19 11:25 Consulted attending regarding kidney function. Patient had prior history of acu te kidney injury and GFR is improved compared to prior visits. Attending Dr. Brannon V in agreement with stable discharge and PCP follow-up. Critical care attestation.: If time is entered above; I have spent that time in minutes in the direct care of this critically ill patient, excluding procedure time. ED Disposition Clinical Impression: Bitten by rat, initial encounter Disposition: DC-01 TO HOME OR SELFCARE Is pt being admited?: No Condition: Stable Instructions: Animal Bite (ED) Additional Instructions: Clean wound twice a day. Return to the emergency room if drainage, redness, or swelling. Follow-up with your primary care doctor in 2 to 3 days or return to the emergency room with worsening symptoms. Prescriptions: Amoxicillin/Potassium Clav [Augmentin 875-125 Tablet] 1 each PO BID #14 tablet Referrals: [facility] [Outside] - 3-5 Days [facility] [Outside] - 3-5 Days MARY CRAWFORD MD [Staff Physician] - 3-5 Days Time of Disposition: 12:20 Print Language: MARTIN[place]QUAIS ED Medical Decision Making - Lab Data Result diagrams: 10/14/19 09:56 10/14/19 09:56 Lab Results 10/14/19 10/14/19 Range/Units 09:56 09:56 WBC 7.0 (4.5-11.0) K/mm3 RBC 3.77 (3.65-5.03) M/mm3 Hgb 12.0 (10.1-14.3) gm/dl Hct 35.2 (30.3-42.9) % MCV 93 (79-97) fl MCH 32 (28-32) pg MCHC 34 (30-34) % RDW 14.0 (13.2-15.2) % Plt Count 197 (140-440) K/mm3 Sodium 138 (137-145) mmol/L Potassium 4.7 (3.6-5.0) mmol/L Chloride 104.6 (98-107) mmol/L Carbon Dioxide 19 L (22-30) mmol/L Anion Gap 19 mmol/L BUN 45 H (7-17) mg/dL Creatinine 1.8 H (0.7-1.2) mg/dL Estimated GFR 28 ml/min BUN/Creatinine Ratio 25 % Glucose 194 H (65-100) mg/dL Calcium 9.6 (8.4-10.2) mg/dL - Medical Decision Making This is a 64-year-old female who presents to the emergency room after bite wound to right eyebrow from a rat this morning. Vitals are stable. Past medical history of diabetes, hypertension, chronic kidney disease. There is 4 puncture wounds to the right eyebrow, swelling, erythema, and TTP. Wound irrigated with normal saline and sterile dressing applied. Boostrix vaccine given. Labs obtained. Decreased renal function. GFR has improved compared to prior visits. Consulted attending Dr. Brannon V. who agree patient is stable for outpatient follow up. Start Augmentin. Clean wound twice a day. Apply ice for swelling. Follow-up with PCP. Patient given strict return instructions and discharged home.
[2019-10-14 10:40] LABS: Hematocrit 35.2 % (30.3-42.9); Mean Corpuscular HGB Conc 34 % (30-34); Mean Corpuscular Volume 93 fl (79-97); Platelet Count 197 K/mm3 (140-440); Red Blood Count 3.77 M/mm3 (3.65-5.03)
[2019-10-14 11:01] LABS: Calcium 9.6 mg/dL (8.4-10.2)
== END 2019-10-14 12:53 | disposition home or self-care (01) ==
LOC: ED 09:14
DX: S01.151A Open bite of right eyelid and periocular area, initial encounter (principal); I10 Essential (primary) hypertension; E11.9 Type 2 diabetes mellitus without complications; Z98.890 Other specified postprocedural states; Z79.899 Other long term (current) drug therapy; W53.11XA Bitten by rat, initial encounter; Y93.89 Activity, other specified; Y92.89 Other specified places as the place of occurrence of the external cause; Y99.8 Other external cause status
CPT/HCPCS: 36415; 80048; 82962; 85027; 90471; 90715; 99283